=== PATIENT | female | born 1995 | race Caucasian/White ===

== ENCOUNTER 2018-03-09 15:48 | Emergency (ER) | payer OTHER ==
[2018-03-09 16:38] LABS: Absolute Lymphocytes (CBC) 2.2 K/uL (0.7-4.9); Absolute Monocytes 0.6 K/uL (0.1-1.3); Absolute Neutrophil 5.4 K/uL (1.8-8.0); Basophils % 0.4 % (0-1.3); Eosinophils % 1.9 % (0-4.4); Hematocrit 37.3 % (36.0-45.0); Lymphocytes % 25.9 % (15.3-44.8); MCH 27.6 pg (27.0-35.0); MCV 83.8 fL (80-100); MPV 8.6 fL (7.6-11.3); Monocytes % 7.2 % (3.3-12.3); RBC Red Blood Cell Count 4.45 M/uL (3.86-4.86)
[2018-03-09 16:44] LABS: Protime INR 1.1
[2018-03-09 16:46] LABS: Bicarbonate 26 mEq/L (21-31); Glucose Level 87 mg/dL (65-120); Potassium 3.6 mEq/L (3.6-5.0); Sodium Level 140 mEq/L (135-145)
[2018-03-09 16:52] LABS: ALT/SGPT 44 IU/L (10-60); AST/SGOT 32 IU/L (10-42); Albumin 4.5 g/dL (3.2-5.5); Alkaline Phosphatase 122 IU/L (42-121); BUN Blood Urea Nitrogen 10 mg/dL (6-20); Bilirubin Direct 0.1 mg/dL (0-0.2); Bilirubin Total 0.6 mg/dL (0.3-1.2); Protein, Total 8.2 g/dL (6.0-8.3)
[2018-03-09 16:56] LABS: Alcohol Serum/Plasma < 10 mg/dl
[2018-03-09 18:25] LABS: Barbiturates NEGATIVE (NEGATIVE); Benzodiazepines NEGATIVE (NEGATIVE); Cocaine NEGATIVE (NEGATIVE); METHAMPHETAM NEGATIVE (NEGATIVE); Opiates NEGATIVE (NEGATIVE); Phencyclidine NEGATIVE (NEGATIVE); THC Cannibis NEGATIVE (NEGATIVE)
[2018-03-09 18:31] LABS: Urine Blood 3+ (NEG); Urine Glucose NEGATIVE (NEG); Urine Protein 1+ (NEG); Urine Specific Gravity >1.030 (1.005-1.030)
--- NOTE | 2018-03-09 21:56 | EDPHYS ---
Physician Documentation [facility] Name: Kianna Preston Age: 22 yrs Sex: Female : 1995 Arrival Date: 03/09/2018 Time: 15:49 Bed 16 Private MD: ED Physician Errol Arenas HPI: 03/09 16:13 This 22 yrs old Female presents to ER via EMS with complaints of Suicidal cp Ideation. 16:13 The patient presents to the emergency department with depression, suicide ideation, and cp the patient has a plan, to overdose with medications. Onset: The symptoms/episode began/occurred 1 week(s) ago. Past psychiatric history: Psychiatric medications include: Prozac, Abilify, Concerta, the patient has a previous inpatient psychiatric history, last year, at [facility] . Associated signs and symptoms: The patient has no apparent associated signs or symptoms. Severity of symptoms: in the emergency department the symptoms are unchanged. 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 - Social history:: Smoking status: Patient uses tobacco products, denies chronic smoking, but will smoke occasionally. - Ebola Screening: : No symptoms or risks identified at this time. ROS: 16:15 Eyes: Negative for injury, pain, redness, and discharge. cp 16:15 Constitutional: Negative for body aches, chills, fever, poor PO intake. 16:15 Psych: Positive for depression, suicidal ideation. 16:15 All other systems are negative. Exam: 16:15 Head/Face: Normocephalic, atraumatic. cp 16:15 Eyes: Pupils equal round and reactive to light, extra-ocular motions intact. Lids and lashes normal. Conjunctiva and sclera are non-icteric and not injected. Cornea within normal limits. Periorbital areas with no swelling, redness, or edema. ENT: Nares patent. No nasal discharge, no septal abnormalities noted. Tympanic membranes are normal and external auditory canals are clear. Oropharynx with no redness, swelling, or masses, exudates, or evidence of obstruction, uvula midline. Mucous membranes moist. Neck: Trachea midline, no thyromegaly or masses palpated, and no cervical lymphadenopathy. Supple, full range of motion without nuchal rigidity, or vertebral point tenderness. No Meningismus. Chest/axilla: Normal chest wall appearance and motion. Nontender with no deformity. No lesions are appreciated. Cardiovascular: Regular rate and rhythm with a normal S1 and S2. No gallops, murmurs, or rubs. Normal PMI, no JVD. No pulse deficits. Respiratory: Lungs have equal breath sounds bilaterally, clear to auscultation and percussion. No rales, rhonchi or wheezes noted. No increased work of breathing, no retractions or nasal flaring. Abdomen/GI: Soft, non-tender, with normal bowel sounds. No distension or tympany. No guarding or rebound. No evidence of tenderness throughout. Skin: Warm, dry with normal turgor. Normal color with no rashes, no lesions, and no evidence of cellulitis. MS/ Extremity: Pulses equal, no cyanosis. Neurovascular intact. Full, normal range of motion. Neuro: Awake and alert, GCS 15, oriented to person, place, time, and situation. Cranial nerves II-XII grossly intact. Motor strength 5/5 in all extremities. Sensory grossly intact. Cerebellar exam normal. Normal gait. 16:15 Constitutional: The patient appears in no acute distress, alert, awake, non-diaphoretic, non-toxic, well developed, well nourished. 16:15 Psych: Behavior/mood is suicidal, depressed, Affect is flat, Judgement / Insight is normal. Delusions/hallucinations are not present. 16:47 ECG was reviewed by the Attending Physician. cp Vital Signs: 15:57 BP 129 / 87; Pulse 86; Resp 20; Temp 98.6; Pulse Ox 98% on R/A; Weight 105.23 kg; em Height 5 ft. 8 in. (172.72 cm); Pain 0/10; 18:56 BP 118 / 67; Pulse 82; Resp 16; Temp 97.0(O); Pulse Ox 98% on R/A; mh5 22:00 BP 111 / 64; Pulse 86; Resp 16; Pulse Ox 98% on R/A; Pain 0/10; cc 15:57 Body Mass Index 35.28 (105.23 kg, 172.72 cm) em MDM: 16:00 Patient medically screened. cp 16:17 Differential diagnosis: drug withdrawal. acute psychotic break, depression, psychosis cp secondary to non-compliance. 21:52 ED course: VSS. Patient evaluated by [facility] and felt to be stable for outpatient cp treatment. Spoke with patient and she denies currently being suicidal or homicidal. 21:54 Data reviewed: vital signs, nurses notes, lab test result(s), EKG, and as a result, [facility] will discharge patient. 03/09 16:08 Order name: Acetaminophen; Complete Time: 18:35 cp 03/09 16:08 Order name: Basic Metabolic Panel; Complete Time: 18:35 cp 03/09 16:08 Order name: CBC with Diff; Complete Time: 18:35 03/09 16:08 Order name: ETOH Level; Complete Time: 18:35 cp 03/09 16:08 Order name: Hepatic Function; Complete Time: 18:35 cp 03/09 16:08 Order name: PT-INR; Complete Time: 18:35 03/09 16:08 Order name: Urine Test (obtain specimen); Complete Time: 18:40 cp 03/09 16:08 Order name: Ptt, Activated; Complete Time: 18:35 cp 03/09 16:08 Order name: Salicylate; Complete Time: 18:35 cp 03/09 16:08 Order name: Urine Drug Screen; Complete Time: 18:35 03/09 16:50 Order name: Diet Regular; Complete Time: 16:50 mh5 03/09 17:05 Order name: Test, Serum; Complete Time: 18:35 03/09 18:14 Order name: Urine Dipstick--Ancillary (enter results); Complete Time: 18:35 em1 03/09 18:36 Interpretation: Normal except: USPGR >1.030; UBLD 3+; UPROT 1+. cp 03/09 16:08 Order name: EKG - Nurse/Tech; Complete Time: 16:59 cp 03/09 16:08 Order name: IV Saline Lock; Complete Time: 16:58 cp 03/09 16:08 Order name: Labs collected and sent; Complete Time: 16:58 cp 03/09 16:08 Order name: Urine Dipstick-Ancillary (obtain specimen); Complete Time: 18:09 cp 03/09 18:59 Order name: Glucose Level; Complete Time: 19:03 em EC:47 Rate is 70 beats/min. Rhythm is regular. NE interval is normal. QRS interval is normal. cp QT interval is normal. No ST changes noted. Interpreted by me. Reviewed by me. Administered Medications: No medications were administered Point of Care Testing: Blood Glucose: 19:04 Blood Glucose: 112 mg/dL; 5 Ranges: Critical Glucose Levels:Adult <50 mg/dl or >400 mg/dl <40 mg/dl or >180 mg/dl Disposition: 03/10 13:06 Co-signature as Attending Physician, Errol Arenas MD. Disposition: 03/09/18 21:55 Discharged to Home. Impression: Depression. - Condition is Stable. - Discharge Instructions: Depression, Adult. - Medication Reconciliation Form, Thank You Letter, Antibiotic Education, Prescription Opioid Use form. - Follow up: Private Physician; When: 1 - 2 days; Reason: Recheck today's complaints. - Problem is an ongoing problem. - Symptoms have improved. Signatures: Dispatcher [employer] EDFemi Cordoba, COOK CHILI COOK CHILI Vimal Kramer PA PA cp Starr, Gregory, MD MD gs Salazar, Brittany, RN RN bs1 Corrections: (The following items were deleted from the chart) 03/09 22:30 21:55 03/09/2018 21:55 Discharged to Home. Impression: Depression. Condition is Stable. bs1 Forms are Medication Reconciliation Form, Thank You Letter, Antibiotic Education, Prescription Opioid Use. Follow up: Private Physician; When: 1 - 2 days; Reason: Recheck today's complaints. Problem is an ongoing problem. Symptoms have improved. cp
--- NOTE | 2018-03-09 21:56 | ER ---
Nurse's Notes [facility] Name: Kianna Preston Age: 22 yrs Sex: Female : 1995 Arrival Date: 03/09/2018 Time: 15:49 Bed 16 Private MD: Diagnosis: Depression Presentation: 03/09 15:51 Acuity: STEPHANY 2 ss 16:02 Presenting complaint: EMS states: called out after friend called PD after pt reported em wanting to hurt herself, pt wants to hurt herself by taking a bottle of pills, superficial cuts noted to the right thigh, has been "talked out of taking pills 3 times this week." Pt request family not be present. States, "doesn't want to be lectured.". Transition of care: patient was not received from another setting of care. Onset of symptoms was March 09, 2018. Risk Assessment: Do you want to hurt yourself or someone else? Patient reports desire/thoughts of hurting themselves or someone else. Provider notified. Initial Sepsis Screen: Does the patient meet any 2 criteria? No. Patient's initial sepsis screen is negative. Does the patient have a suspected source of infection? No. Patient's initial sepsis screen is negative. 16:02 Method Of Arrival: EMS: [facility] em 16:02 Care prior to arrival: None. em Triage Assessment: 16:02 General: Appears in no apparent distress. comfortable, Behavior is calm, cooperative, em quiet. 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 - Social history:: Smoking status: Patient uses tobacco products, denies chronic smoking, but will smoke occasionally. - Ebola Screening: : No symptoms or risks identified at this time. Screenin:01 Abuse screen: Denies threats or abuse. Nutritional screening: No deficits noted. em Tuberculosis screening: No symptoms or risk factors identified. Fall Risk None identified. Assessment: 16:05 General: Appears in no apparent distress. comfortable, Behavior is calm, cooperative, em Reports didn't want family present initially, pt states, "as long as they don't talk down to me." family present. Pain: Denies pain. Neuro: Level of Consciousness is awake, alert, obeys commands, Oriented to person, place, time, situation. Cardiovascular: Capillary refill < 3 seconds Patient's skin is warm and dry. Respiratory: Airway is patent Respiratory effort is even, unlabored, Respiratory pattern is regular, symmetrical. GI: Abdomen is round non-distended. : No signs and/or symptoms were reported regarding the genitourinary system. EENT: No signs and/or symptoms were reported regarding the EENT system. Derm: Skin is intact, Skin is pink, warm \\T\\ dry. superficial cuts noted on right thigh. Musculoskeletal: Range of motion: intact in all extremities. 16:15 General: The previous assessment is accurate, call light remains within reach.. ss 17:31 Reassessment: Patient appears in no apparent distress at this time. Patient and/or em family updated on plan of care and expected duration. Pain level reassessed. eating dinner tray, pt mother at bedside, pt discussing with mother calmly. 18:16 Reassessment: Patient appears in no apparent distress at this time. Patient and/or em family updated on plan of care and expected duration. Pain level reassessed. Patient is alert, oriented x 3, equal unlabored respirations, skin warm/dry/pink. pt states she feels better. 19:10 Reassessment: Report received from BARB Kahn. bs1 19:10 General: Appears in no apparent distress. comfortable, Behavior is calm, cooperative. bs1 Pain: Denies pain. Neuro: Level of Consciousness is awake, alert, obeys commands, Oriented to person, place, time, situation. Cardiovascular: Denies chest pain, shortness of breath, Heart tones S1 S2 present Capillary refill < 3 seconds Patient's skin is warm and dry. Respiratory: Airway is patent Trachea midline Respiratory effort is even, unlabored, Respiratory pattern is regular, symmetrical, Breath sounds are clear bilaterally. GI: No signs and/or symptoms were reported involving the gastrointestinal system. Abdomen is round non-distended. : No signs and/or symptoms were reported regarding the genitourinary system. EENT: No signs and/or symptoms were reported regarding the EENT system. Derm: Skin is intact, Skin is pink, warm \\T\\ dry. superficial cuts noted to right thigh. Musculoskeletal: Circulation, motion, and sensation intact. Capillary refill < 3 seconds, Range of motion: intact in all extremities. 20:30 Reassessment: No changes from previously documented assessment. Patient and/or family bs1 updated on plan of care and expected duration. Pain level reassessed. Patient is alert, oriented x 3, equal unlabored respirations, skin warm/dry/pink. Patient denies pain at this time. 21:54 Reassessment: PT CLEARED BY [facility] SCREENER. bp Psych: 16:07 Subjective: Patient's mood is sad. Subjective: Having thoughts of suicide. Plan for em suicide is taking pill bottle. Objective: Patient is cooperative, Speech is normal, Affect is appropriate, Patient has mutilated themselves by knife to the right thigh. Interventions: Removed personal items and placed in bag. Patient placed in hospital gown. Searched person for dangerous items. Suicide Risk Assessment: Sad Person Scale: Sex of patient: Female: Score 0 points. Age of patient: Score 1 point if patient 15-34. Depression: Score 1 point if signs of depression are present. Previous Attempt: Score 1 point if patient has previously attempted suicide. Substance Abuse: Score 0 point if patient does not abuse alcohol or drugs. Rational Thinking: Score 0 point if patient has rational thinking. Social Support: Score 0 if social support is present/available. Organized Plan: Score 1 point if patient had a plan in place. TOTAL POINTS: If total points are 3-4, proposed clinical action is close follow-up/consider hospitalization. Safety Checks: Personal items have been removed. Door is open. Visitors are present. Pt denies substance abuse. Commitment: Patient will be a voluntary commitment. Vital Signs: 15:57 BP 129 / 87; Pulse 86; Resp 20; Temp 98.6; Pulse Ox 98% on R/A; Weight 105.23 kg; em Height 5 ft. 8 in. (172.72 cm); Pain 0/10; 18:56 BP 118 / 67; Pulse 82; Resp 16; Temp 97.0(O); Pulse Ox 98% on R/A; mh5 22:00 BP 111 / 64; Pulse 86; Resp 16; Pulse Ox 98% on R/A; Pain 0/10; cc 15:57 Body Mass Index 35.28 (105.23 kg, 172.72 cm) em ED Course: 15:49 Patient arrived in ED. em1 15:52 Triage completed. ss 15:54 Vimal Kramer PA is PHCP. cp 15:54 Errol Arenas MD is Attending Physician. cp 15:57 Femi Horton LVN is Primary Nurse. em 16:06 Arm band placed on. em 16:07 Patient has correct armband on for positive identification. Placed in gown. Bed in low em position. Call light in reach. 16:16 No provider procedures requiring assistance completed. em 16:29 Initial lab(s) drawn, by me, sent to lab. Inserted saline lock: 22 gauge in right mh5 antecubital area, using aseptic technique. Blood collected. 16:30 Safety checks: Items removed: yes. Door open/sign placed on door: yes. Family/friend mh5 present: yes. Patient has correct armband on for positive identification. Side rails up X 1. Adult w/ patient. Warm blanket given. Sitter at bedside. 16:45 Safety checks: Items removed: yes. Door open/sign placed on door: yes. Family/friend mh5 present: yes. Family/friends encouraged to stay with patient. 17:00 Safety checks: Items removed: yes. Door open/sign placed on door: yes. Family/friend mh5 present: yes. Family/friends encouraged to stay with patient. 17:11 EKG done, by ED staff, reviewed by Vimal LIMA. 5 17:15 Safety checks: Items removed: yes. Door open/sign placed on door: yes. Family/friend mh5 present: yes. Family/friends encouraged to stay with patient. 17:30 Safety checks: Items removed: yes. Door open/sign placed on door: yes. Family/friend mh5 present: yes. Family/friends encouraged to stay with patient. Diet: Patient given a regular meal tray. 17:45 Safety checks: Items removed: yes. Door open/sign placed on door: yes. Family/friend mh5 present: yes. Family/friends encouraged to stay with patient. 18:00 Safety checks: Items removed: yes. Door open/sign placed on door: yes. Family/friend mh5 present: yes. Family/friends encouraged to stay with patient. 18:15 Safety checks: Items removed: yes. Door open/sign placed on door: yes. Family/friend mh5 present: yes. Family/friends encouraged to stay with patient. 18:30 Safety checks: Items removed: yes. Door open/sign placed on door: yes. Family/friend mh5 present: yes. Family/friends encouraged to stay with patient. 18:45 Safety checks: Items removed: yes. Door open/sign placed on door: yes. Family/friend mh5 present: yes. Family/friends encouraged to stay with patient. 19:00 Safety checks: Items removed: yes. Door open/sign placed on door: yes. Family/friend mh5 present: yes. Family/friends encouraged to stay with patient. 19:00 called [facility] crisis line the real estate representative has been paged and will be here em1 at 2130. 19:20 Safety checks: Items removed: yes. Door open/sign placed on door: yes. Family/friend cc present: yes. 19:30 Safety checks: Items removed: yes. Door open/sign placed on door: yes. Family/friend cc present: yes. 19:45 Safety checks: Items removed: yes. Door open/sign placed on door: yes. Family/friend cc present: yes. 20:00 Safety checks: Items removed: yes. Door open/sign placed on door: yes. Family/friend cc present: no. 20:15 Safety checks: Items removed: yes. Door open/sign placed on door: yes. Family/friend cc present: yes. 20:30 Safety checks: Items removed: yes. Door open/sign placed on door: yes. Family/friend cc present: yes. 20:45 Safety checks: Items removed: yes. Door open/sign placed on door: yes. Family/friend cc present: yes. 21:00 Safety checks: Items removed: yes. Door open/sign placed on door: yes. Family/friend cc present: yes. 21:15 Safety checks: Items removed: yes. Door open/sign placed on door: yes. Family/friend cc present: yes. 21:27 [facility] real estate representative here to evaluate patient. 21:30 [facility] screener at bedside. cc 21:45 [facility] Screener at bedside. cc 22:00 IV discontinued, intact, bleeding controlled, Pressure dressing applied. cc 22:02 belongings returned to the patient. cc Administered Medications: No medications were administered Point of Care Testing: Blood Glucose: 19:04 Blood Glucose: 112 mg/dL; 5 Ranges: Outcome: 21:55 Discharge ordered by MD. cp 22:11 Discharged to home ambulatory, with family. bs1 22:11 Condition: stable 22:11 Discharge instructions given to patient, Instructed on discharge instructions, follow up and referral plans. Demonstrated understanding of instructions, follow-up care, Instructed to follow up with [facility]. Patient states understanding of dc instructions 22:30 Patient left the ED. bs1 Signatures: Femi Horton LVN LVN em Michael Altamirano 1 Meena Cox, RN RN Omaira Winters cc Vimal Kramer PA PA cp Martinez, Maria [facility] Marko Bagley RN RN bp Salazar, Brittany, RN RN bs1 Bettie Liao Corrections: (The following items were deleted from the chart) 18:10 16:05 Derm: Skin is intact, Skin is pink, warm \\T\\ dry. em em 19:50 19:20 Safety checks: Items removed: yes. Door open/sign placed on door: yes. cc Family/friend present: no. cc
[2018-03-09 22:57] VITALS: O2SAT 98
[2018-03-09 22:58] VITALS: TEMP 97
[2018-03-09 23:00] VITALS: BP 111/64
--- NOTE | 2018-03-10 12:16 | EKG ---
Test Date: 2018-03-09 Test Time: 16:42:36 Wet Process Technician: POLO MEASUREMENT RESULTS: Intervals: Rate: 70 CA: 140 QRSD: 82 QT: 408 QTc: 440 [place]: P: 30 CA: 140 QRS: 35 T: 35 INTERPRETIVE STATEMENTS: Normal sinus rhythm Normal ECG Compared to ECG 04/17/2017 15:18:40 No significant changes Electronically Signed On 03-10-18 12:15:35 CDT by Pablo Queen
== END 2018-03-09 22:30 | disposition home or self-care (01) ==
LOC: ER 15:48
DX: F32.9 Major depressive disorder, single episode, unspecified (principal); F31.9 Bipolar disorder, unspecified; F41.9 Anxiety disorder, unspecified; Z72.0 Tobacco use
CPT/HCPCS: 36415; 80048; 80076; 80307; 80320; 80329; 81003; 82962; 84703; 85025; 85610; 85730; 93005; 99285

== ENCOUNTER 2018-06-15 03:27 | Emergency (ER) | payer OTHER ==
[2018-06-15 05:46] LABS: Barbiturates NEGATIVE (NEGATIVE); Benzodiazepines NEGATIVE (NEGATIVE); Cocaine NEGATIVE (NEGATIVE); METHAMPHETAM NEGATIVE (NEGATIVE); Methadone NEGATIVE (NEGATIVE); Opiates NEGATIVE (NEGATIVE); Phencyclidine NEGATIVE (NEGATIVE); THC Cannibis NEGATIVE (NEGATIVE)
[2018-06-15 05:52] LABS: Absolute Lymphocytes (CBC) 3.6 K/uL (0.7-4.9); Absolute Monocytes 0.5 K/uL (0.1-1.3); Basophils % 0.5 % (0-1.3); Hematocrit 39.8 % (36.0-45.0); Lymphocytes % 37.7 % (15.3-44.8); MCH 29.1 pg (27.0-35.0); MCV 86.5 fL (80-100); Monocytes % 5.4 % (3.3-12.3)
[2018-06-15 05:53] LABS: Urine Blood 2+ (NEG); Urine Glucose NEGATIVE (NEG); Urine Protein 1+ (NEG); Urine Specific Gravity >1.030 (1.005-1.030); Urine pH 5.5 (5.0-7.0)
[2018-06-15 06:00] LABS: BUN Blood Urea Nitrogen 12 mg/dL (7-18); Bicarbonate 26 mmol/L (21-32); Glucose Level 160 mg/dL (74-106); Potassium 3.5 mmol/L (3.5-5.1); Sodium Level 141 mmol/L (136-145)
[2018-06-15 06:07] LABS: Urine Bacteria 20-50 /HPF (<20); Urine Culture Reflex Order REFLEXED; Urine RBC <5 /HPF (NONE SEEN)
--- NOTE | 2018-06-15 06:37 | EDPHYS ---
Physician Documentation [facility] Name: Kianna Preston Age: 22 yrs Sex: Female : 1995 Arrival Date: 06/15/2018 Time: 03:29 Bed 7 Private MD: Nasim Acosta T ED Physician Antonio Knutson HPI: 06/15 05:36 This 22 yrs old Female presents to ER via Wheelchair with complaints of rn Anxiety. 05:36 Reports "bad anxiety", friends brought her in today because of generalized weakness, rn palpitations, chills, "coldness in chest and entire body", has been trying to get medication for anxiety but hasn't followed up. Denies drug use. No current pain. . Onset: The symptoms/episode began/occurred at an unknown time. Severity of symptoms: At their worst the symptoms were moderate in the emergency department the symptoms have improved. The patient has experienced similar episodes in the past. The patient has not recently seen a physician. 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 - Social history:: Smoking status: Patient uses tobacco products, smokes one pack cigarettes per day. - Ebola Screening: : Patient negative for fever greater than or equal to 101.5 degrees Fahrenheit, and additional compatible Ebola Virus Disease symptoms Patient denies exposure to infectious person Patient denies travel to an Ebola-affected area in the 21 days before illness onset No symptoms or risks identified at this time. - Family history:: not pertinent. - Hospitalizations: : No recent hospitalization is reported. ROS: 05:36 Constitutional: Negative for fever and weight loss, Eyes: Negative for injury, pain, rn redness, and discharge, Neck: Negative for injury, pain, and swelling, Cardiovascular: Negative for edema, Respiratory: Negative for cough, wheezing, and pleuritic chest pain, Abdomen/GI: Negative for abdominal pain, diarrhea, and constipation, MS/Extremity: Negative for injury and deformity, Skin: Negative for injury, rash, and discoloration, Neuro: Negative for seizure. Exam: 05:36 Constitutional: This is a well developed, well nourished patient who is awake, alert, rn flat affect, does not appear uncomfortable at all. Head/Face: Normocephalic, atraumatic. Eyes: Pupils equal round and reactive to light, extra-ocular motions intact. Lids and lashes normal. Conjunctiva and sclera are non-icteric and not injected. Cornea within normal limits. Periorbital areas with no swelling, redness, or edema. Neck: Trachea midline, no thyromegaly or masses palpated, and no cervical lymphadenopathy. Supple, full range of motion without nuchal rigidity, or vertebral point tenderness. No Meningismus. Cardiovascular: Regular rate and rhythm with a normal S1 and S2. No gallops, murmurs, or rubs. Normal PMI, no JVD. No pulse deficits. Respiratory: Lungs have equal breath sounds bilaterally, clear to auscultation and percussion. No rales, rhonchi or wheezes noted. No increased work of breathing, no retractions or nasal flaring. Abdomen/GI: Soft, non-tender, with normal bowel sounds. No distension or tympany. No guarding or rebound. No evidence of tenderness throughout. Skin: Warm, dry with normal turgor. Normal color with no rashes, no lesions, and no evidence of cellulitis. MS/ Extremity: Pulses equal, no cyanosis. Neurovascular intact. Full, normal range of motion. Equal circumference. Neuro: Awake and alert, GCS 15, oriented to person, place, time, and situation. Cranial nerves II-XII grossly intact. Motor strength 5/5 in all extremities. Sensory grossly intact. Cerebellar exam normal. Vital Signs: 04:00 BP 116 / 77; Pulse 78; Resp 14; Temp 97.7; Pulse Ox 99% ; Weight 103.42 kg; Height 5 bp ft. 8 in. (172.72 cm); 05:00 BP 110 / 72; Pulse 76; Resp 18; Pulse Ox 98% on R/A; jb4 06:00 BP 102 / 56; Pulse 74; Resp 18; Pulse Ox 97% on R/A; jb4 07:10 BP 104 / 67; Pulse 86; Resp 18; Pulse Ox 97% on R/A; jb4 04:00 Body Mass Index 34.67 (103.42 kg, 172.72 cm) bp MDM: 04:12 Patient medically screened. rn 06:35 Differential Diagnosis anxiety, stress reaction, viral syndrome, hyperventilation. Data rn reviewed: vital signs, nurses notes, lab test result(s), EKG, and as a result, I will discharge patient. Counseling: I had a detailed discussion with the patient and/or guardian regarding: the historical points, exam findings, and any diagnostic results supporting the discharge/admit diagnosis, lab results, the need for outpatient follow up, to return to the emergency department if symptoms worsen or persist or if there are any questions or concerns that arise at home. Response to treatment: the patient is now symptom free, and as a result, I will discharge patient. Special discussion: I discussed with the patient/guardian in detail that at this point there is no indication for admission to the hospital. It is understood, however, that if the symptoms persist or worsen the patient needs to return immediately for re-evaluation. Based on the history and exam findings, there is no indication for further emergent testing or inpatient evaluation. I discussed with the patient/guardian the need to see the primary care provider for further evaluation of the symptoms. 06/15 04:28 Order name: CBC with Diff; Complete Time: 06: 06/15 04:28 Order name: Basic Metabolic Panel; Complete Time: : 06/15 04:28 Order name: Urine Drug Screen; Complete Time: : 06/15 04:28 Order name: Urine Microscopic Only; Complete Time: 06: 06/15 05:32 Order name: Urine Dipstick--Ancillary (enter results); Complete Time: 06: [facility] 06/15 05:32 Order name: Urine --Ancillary (enter results); Complete Time: 06:35 [facility] 06/15 04:28 Order name: IV Start; Complete Time: 05: 06/15 04:28 Order name: Urine Test (obtain specimen); Complete Time: 05: 06/15 04:28 Order name: Urine Dipstick-Ancillary (obtain specimen); Complete Time: 05:25 06/15 04:28 Order name: EKG; Complete Time: 04:29 06/15 04:28 Order name: EKG - Nurse/Tech; Complete Time: 04:55 rn 09/23 06:09 Order name: Urine Culture EDMS Administered Medications: No medications were administered Disposition: 06/15/18 06:36 Discharged to Home. Impression: Anxiety disorder, unspecified, Palpitations. - Condition is Stable. - Discharge Instructions: Panic Attacks, Palpitations, Stress and Stress Management, Generalized Anxiety Disorder. - Medication Reconciliation Form, Thank You Letter, Antibiotic Education, Prescription Opioid Use form. - Follow up: Private Physician; When: As needed; Reason: Recheck today's complaints, Re-evaluation by your physician. - Problem is an ongoing problem. - Symptoms have improved. Signatures: Dispatcher [employer] EDMS Antonio Knutson MD MD rn Bryson, James, RN RN jb4 Marko Bagley RN RN bp Corrections: (The following items were deleted from the chart) 07:13 06:36 06/15/2018 06:36 Discharged to Home. Impression: Anxiety disorder, unspecified; jb4 Palpitations. Condition is Stable. Forms are Medication Reconciliation Form, Thank You Letter, Antibiotic Education, Prescription Opioid Use. Follow up: Private Physician; When: As needed; Reason: Recheck today's complaints, Re-evaluation by your physician. Problem is an ongoing problem. Symptoms have improved. rn
--- NOTE | 2018-06-15 06:37 | ER ---
Nurse's Notes [facility] Name: Kianna Preston Age: 22 yrs Sex: Female : 1995 Arrival Date: 06/15/2018 Time: 03:29 Bed 7 Private MD: Nasim Acosta T Diagnosis: Anxiety disorder, unspecified;Palpitations Presentation: 06/15 04:00 Presenting complaint: Patient states: ANXIETY. Transition of care: patient was not bp received from another setting of care. Onset of symptoms is unknown. Risk Assessment: Do you want to hurt yourself or someone else? Patient reports no desire to harm self or others. Initial Sepsis Screen: Does the patient meet any 2 criteria? No. Patient's initial sepsis screen is negative. Does the patient have a suspected source of infection? No. Patient's initial sepsis screen is negative. Care prior to arrival: None. 04:00 Method Of Arrival: Wheelchair bp 04:00 Acuity: STEPHANY 5 bp Triage Assessment: 04:00 General: Appears in no apparent distress. comfortable, obese, Behavior is cooperative, bp appropriate for age, flat. Pain: Denies pain. 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 - Social history:: Smoking status: Patient uses tobacco products, smokes one pack cigarettes per day. - Ebola Screening: : Patient negative for fever greater than or equal to 101.5 degrees Fahrenheit, and additional compatible Ebola Virus Disease symptoms Patient denies exposure to infectious person Patient denies travel to an Ebola-affected area in the 21 days before illness onset No symptoms or risks identified at this time. - Family history:: not pertinent. - Hospitalizations: : No recent hospitalization is reported. Screenin:45 Abuse screen: Denies threats or abuse. Nutritional screening: No deficits noted. jb4 Tuberculosis screening: No symptoms or risk factors identified. Fall Risk None identified. Assessment: 04:45 General: Appears in no apparent distress. uncomfortable, Behavior is calm, cooperative, jb4 appropriate for age. Pain: Complains of pain in back, chest and abdomen Pain does not radiate. Pain currently is 6 out of 10 on a pain scale. at worst was 10 out of 10 on a pain scale. Quality of pain is described as crampy, Pain began 2-3 days ago. Is intermittent. Neuro: Level of Consciousness is awake, alert, obeys commands, Oriented to person, place, time, situation. Cardiovascular: Reports chest pain, Heart tones S1 S2 present Patient's skin is warm and dry. Respiratory: Airway is patent Respiratory effort is even, unlabored, Respiratory pattern is regular, symmetrical. GI: Abdomen is non-distended, obese, Bowel sounds present X 4 quads. Abd is soft X 4 quads Abdomen is tender to palpation X 4 quads. : No signs and/or symptoms were reported regarding the genitourinary system. EENT: No signs and/or symptoms were reported regarding the EENT system. Derm: Skin is intact, Skin is pink, warm \T\ dry. Musculoskeletal: Circulation, motion, and sensation intact. 05:39 Reassessment: Patient appears in no apparent distress at this time. Patient and/or jb4 family updated on plan of care and expected duration. Pain level reassessed. Patient is alert, oriented x 3, equal unlabored respirations, skin warm/dry/pink. 06:45 Reassessment: Patient appears in no apparent distress at this time. Patient and/or jb4 family updated on plan of care and expected duration. Pain level reassessed. Patient is alert, oriented x 3, equal unlabored respirations, skin warm/dry/pink. 07:10 Reassessment: D/c,F/u to pt, denies questions and concerns. jb4 Vital Signs: 04:00 BP 116 / 77; Pulse 78; Resp 14; Temp 97.7; Pulse Ox 99% ; Weight 103.42 kg; Height 5 bp ft. 8 in. (172.72 cm); 05:00 BP 110 / 72; Pulse 76; Resp 18; Pulse Ox 98% on R/A; jb4 06:00 BP 102 / 56; Pulse 74; Resp 18; Pulse Ox 97% on R/A; jb4 07:10 BP 104 / 67; Pulse 86; Resp 18; Pulse Ox 97% on R/A; jb4 04:00 Body Mass Index 34.67 (103.42 kg, 172.72 cm) bp ED Course: 03:29 Patient arrived in ED. es 03:29 Nasim Acosta MD is Private Physician. es 04:00 Triage completed. bp 04:00 Arm band placed on. bp 04:11 Antonio Knutson MD is Attending Physician. rn 04:41 Rigo Bal, RN is Primary Nurse. jb4 04:45 Patient has correct armband on for positive identification. Bed in low position. Call jb4 light in reach. Side rails up X 1. animal care taker on. Pulse ox on. NIBP on. 05:25 Inserted saline lock: 20 gauge in right antecubital area, using aseptic technique. oe Blood collected. 07:10 No provider procedures requiring assistance completed. IV discontinued, intact, jb4 bleeding controlled. Administered Medications: No medications were administered Outcome: 06:36 Discharge ordered by . rn 07:10 Discharged to home ambulatory. jb4 07:10 Condition: stable 07:10 Discharge instructions given to patient, Instructed on discharge instructions, follow up and referral plans. Demonstrated understanding of instructions, follow-up care. 07:13 Patient left the ED. jb4 Signatures: Claudia Cabrera Roman, MD MD rn Rigo Bal, RN RN jb4 Tin Bernal Brian, RN RN bp Corrections: (The following items were deleted from the chart) 05:20 04:45 Pain: Complains of pain in back, chest and abdomen jb4 jb4 07:12 06:45 Reassessment: D/c,F/u to pt, denies questions and concerns. jb4 jb4
[2018-06-15 07:17] VITALS: TEMP 97.7
[2018-06-15 07:19] VITALS: O2SAT 97
[2018-06-15 07:21] VITALS: BP 104/67
--- NOTE | 2018-06-16 08:11 | EKG ---
Test Date: 2018-06-15 Test Time: 04:50:59 Mat Puncher: CHELSIE MEASUREMENT RESULTS: Intervals: Rate: 69 MD: 148 QRSD: 84 QT: 414 QTc: 443 Geddes: P: 46 MD: 148 QRS: 56 T: 55 INTERPRETIVE STATEMENTS: Normal sinus rhythm with sinus arrhythmia Normal ECG Compared to ECG 03/09/2018 16:42:36 No significant changes Electronically Signed On 06-16-18 08:10:38 CDT by Pablo Queen
== END 2018-06-15 07:13 | disposition home or self-care (01) ==
LOC: ER 03:27
DX: R00.2 Palpitations (principal); F17.210 Nicotine dependence, cigarettes, uncomplicated
CPT/HCPCS: 36415; 80048; 80307; 81003; 81015; 81025; 85025; 87086; 87088; 93005; 99284

== ENCOUNTER 2018-09-04 22:38 | Emergency (ER) | payer OTHER ==
[2018-09-04 23:21] LABS: Barbiturates NEGATIVE (NEGATIVE); Benzodiazepines NEGATIVE (NEGATIVE); Cocaine NEGATIVE (NEGATIVE); METHAMPHETAM NEGATIVE (NEGATIVE); Methadone NEGATIVE (NEGATIVE); Opiates NEGATIVE (NEGATIVE); Phencyclidine NEGATIVE (NEGATIVE); THC Cannibis NEGATIVE (NEGATIVE)
[2018-09-04 23:33] LABS: Absolute Lymphocytes (CBC) 3.7 K/uL (0.7-4.9); Absolute Monocytes 0.6 K/uL (0.1-1.3); Absolute Neutrophil 4.9 K/uL (1.8-8.0); Basophils % 0.4 % (0-1.3); Eosinophils % 2.5 % (0-4.4); Hematocrit 40.9 % (36.0-45.0); Lymphocytes % 39.3 % (15.3-44.8); MCH 29.2 pg (27.0-35.0); MCV 87.1 fL (80-100); MPV 8.7 fL (7.6-11.3); Monocytes % 5.9 % (3.3-12.3); RBC Red Blood Cell Count 4.69 M/uL (3.86-4.86)
[2018-09-04 23:35] LABS: Protime INR 0.96
[2018-09-04] MEDS ORDERED: ACT CHARCOAL/SORB 50 GM/240ML ONE (23:36)
[2018-09-04 23:52] LABS: ALT/SGPT 39 U/L (12-78); AST/SGOT 22 U/L (15-37); Albumin 3.8 g/dL (3.4-5.0); Alkaline Phosphatase 132 U/L (45-117); BUN Blood Urea Nitrogen 8 mg/dL (7-18); Bicarbonate 24 mmol/L (21-32); Bilirubin Direct < 0.1 mg/dL (0-0.2); Bilirubin Total 0.2 mg/dL (0.2-1.0); Glucose Level 112 mg/dL (74-106); Potassium 3.6 mmol/L (3.5-5.1); Protein, Total 8.2 g/dL (6.4-8.2); Sodium Level 144 mmol/L (136-145)
[2018-09-05] MEDS ORDERED: ONDANSETRON 4 MG/2 ML VIAL ONE (00:12)
[2018-09-05 01:09] LABS: Urine Blood TRACE (NEG); Urine Glucose NEGATIVE (NEG); Urine Protein NEGATIVE (NEG); Urine pH 5.5 (5.0-7.0)
[2018-09-05] MEDS ORDERED: NA CHLORIDE 0.9% 1,000 ML ONE (02:34)
--- NOTE | 2018-09-05 08:24 | EDPHYS ---
Physician Documentation [facility] Name: Kianna Preston Age: 22 yrs Sex: Female : 1995 Arrival Date: 09/04/2018 Time: 22:41 Bed 7 Private MD: ED Physician Oleksandr Campoverde HPI: 09/05 04:48 This 22 yrs old Female presents to ER via EMS with complaints of Suicidal tw4 Ideation. 04:48 This 22 yrs old Female presents to ER via EMS with complaints of Suicidal tw4 Ideation pt took 10 abilify tablets. 04:48 The patient presents to the emergency department with suicide ideation, and the patient tw4 has a plan, to overdose with medications. Onset: The symptoms/episode began/occurred today. Past psychiatric history: Prior diagnosis: depression. Associated signs and symptoms: Pertinent positives; substance abuse, Pertinent negatives: abdominal pain, anxiety, chest pain, delusions, depression, fever, hallucinations, headache, homicidal ideation. Severity of symptoms: At their worst the symptoms were severe in the emergency department the symptoms are unchanged. The patient has experienced a previous episode. The patient has not recently seen a physician. 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 - Social history:: Smoking status: Patient uses tobacco products, smokes one-half pack cigarettes per day, Patient uses alcohol. - Ebola Screening: : No symptoms or risks identified at this time. ROS: 09/05 04:48 Constitutional: Negative for fever, chills, and weight loss, Eyes: Negative for injury, tw4 pain, redness, and discharge, Cardiovascular: Negative for chest pain, palpitations, and edema, Respiratory: Negative for shortness of breath, cough, wheezing, and pleuritic chest pain, Abdomen/GI: Negative for abdominal pain, nausea, vomiting, diarrhea, and constipation, Back: Negative for injury and pain, MS/Extremity: Negative for injury and deformity, Skin: Negative for injury, rash, and discoloration, Neuro: Negative for headache, weakness, numbness, tingling, and seizure. Psych: Positive for depression, suicide gesture, suicidal ideation, Negative for auditory hallucinations, visual hallucinations, homicidal ideation, insomnia. Exam: 04:30 ECG was reviewed by the Attending Physician. tw4 04:48 Head/Face: Normocephalic, atraumatic. tw4 04:48 Chest/axilla: Normal chest wall appearance and motion. Nontender with no deformity. No lesions are appreciated. Cardiovascular: Regular rate and rhythm with a normal S1 and S2. No gallops, murmurs, or rubs. Normal PMI, no JVD. No pulse deficits. Respiratory: Lungs have equal breath sounds bilaterally, clear to auscultation and percussion. No rales, rhonchi or wheezes noted. No increased work of breathing, no retractions or nasal flaring. Abdomen/GI: Soft, non-tender, with normal bowel sounds. No distension or tympany. No guarding or rebound. No evidence of tenderness throughout. Back: No spinal tenderness. No costovertebral tenderness. Full range of motion. MS/ Extremity: Pulses equal, no cyanosis. Neurovascular intact. Full, normal range of motion. Neuro: Awake and alert, GCS 15, oriented to person, place, time, and situation. Cranial nerves II-XII grossly intact. Motor strength 5/5 in all extremities. Sensory grossly intact. Cerebellar exam normal. Normal gait. 04:48 Constitutional: The patient appears agitated, smells of alcohol, ETOH. 04:48 Psych: Behavior/mood is aggressive, uncooperative, suicidal, depressed, Affect is animated, Oriented to person, place, time, Patient having thoughts of suicide. Judgement / Insight is impaired. Delusions/hallucinations are not present. Vital Signs: 09/04 22:47 BP 110 / 63; Pulse 100; Resp 20; Temp 99.5(O); Pulse Ox 100% on R/A; Weight 102.06 kg; aa1 Height 5 ft. 8 in. (172.72 cm); Pain 0/10; 23:02 BP 108 / 55; Pulse 112; Resp 20; Pulse Ox 95% on R/A; mt 23:46 BP 91 / 52; Pulse 104; Resp 16; Pulse Ox 99% on R/A; mt 09/05 00:35 BP 104 / 62; Pulse 79; Resp 16; Pulse Ox 98% on R/A; mt 01:39 BP 97 / 83; Pulse 80; Resp 17; Pulse Ox 99% on R/A; rr5 02:48 BP 110 / 60; Pulse 80; Resp 18; Pulse Ox 99% on R/A; Pain 0/10; rr5 03:20 BP 96 / 60; Pulse 72; Resp 17; Pulse Ox 99% ; rr5 04:00 BP 92 / 57; Pulse 82; Resp 16; Pulse Ox 99% on R/A; rr5 05:00 BP 94 / 57; Pulse 85; Resp 17; Pulse Ox 97% on R/A; rr5 06:00 BP 93 / 49; Pulse 91; Resp 17; Pulse Ox 96% on R/A; rr5 06:30 BP 102 / 70; Pulse 81; Resp 17; Pulse Ox 97% on R/A; rr5 09/04 22:47 Body Mass Index 34.21 (102.06 kg, 172.72 cm) aa1 MDM: 09/04 22:42 Patient medically screened. 09/05 04:48 Differential diagnosis: acute psychotic break, depression, psychosis secondary to tw4 non-compliance. Data reviewed: vital signs, nurses notes. Data interpreted: Pulse oximetry: Interpretation: normal. Counseling: I had a detailed discussion with the patient and/or guardian regarding: the historical points, exam findings, and any diagnostic results supporting the discharge/admit diagnosis. 09/04 22:42 Order name: Acetaminophen; Complete Time: 01:01 09/05 01:01 Interpretation: Within normal limits: ACETA < 2.0. 09/04 22:42 Order name: Basic Metabolic Panel; Complete Time: 01:01 09/05 01:01 Interpretation: Normal except: CL 112; GLUC 112; GFR 80. 09/04 22:42 Order name: CBC with Diff; Complete Time: 01:01 09/05 01:01 Interpretation: Within normal limits. 09/04 22:42 Order name: ETOH Level; Complete Time: 01:01 09/05 01:01 Interpretation: Normal except: ETOH 169. 09/04 22:42 Order name: Hepatic Function; Complete Time: 01:01 [facility] 09/05 01:01 Interpretation: Normal except: ALK 132; GLOB 4.4; A/G 0.9. [facility] 09/04 22:42 Order name: PT-INR; Complete Time: 01:01 [facility] 09/05 01:02 Interpretation: Within normal limits: PT 11.3. [facility] 09/04 22:42 Order name: Ptt, Activated; Complete Time: 01:02 [facility] 09/05 01:02 Interpretation: Within normal limits: PTT 33.7. [facility] 09/04 22:42 Order name: Salicylate; Complete Time: 01:01 [facility] 09/05 01:01 Interpretation: Within normal limits: RUBY < 1.7. [facility] 09/04 22:42 Order name: Urine Drug Screen; Complete Time: 01:02 [facility] 09/05 01:02 Interpretation: Within normal limits. [facility] 09/04 23:03 Order name: Urine Dipstick--Ancillary (enter results) 09/04 23:03 Order name: Urine --Ancillary (enter results) 09/05 03:38 Order name: ETOH Level [facility] 09/05 03:38 Order name: Acetaminophen [facility] 09/04 22:42 Order name: Urine Test (obtain specimen); Complete Time: 23:02 [facility] 09/04 22:42 Order name: EKG; Complete Time: 22:43 [facility] 09/04 22:42 Order name: EKG - Nurse/Tech; Complete Time: 23:24 [facility] 09/04 22:42 Order name: IV Saline Lock; Complete Time: 23:03 [facility] 09/04 22:42 Order name: Labs collected and sent; Complete Time: 23:03 [facility] 09/04 22:42 Order name: Urine Dipstick-Ancillary (obtain specimen); Complete Time: 23:03 4 EC:30 Rate is 115 beats/min. Rhythm is regular, Sinus tachycardia. QRS [place] is Normal. [place] tw4 interval is normal. QRS interval is normal. QT interval is normal. T waves are Normal. No ST changes noted. Clinical impression: Sinus tachycardia. Interpreted by me. Reviewed by me. Administered Medications: 09/04 23:30 Drug: Charcoal Suspension 50 grams Route: PO; rr5 09/05 03:37 Follow up: Response: No adverse reaction rr5 00:10 Drug: Zofran 4 mg Route: IVP; Site: right hand; rr5 03:36 Follow up: Response: No adverse reaction; Marked relief of symptoms rr5 02:31 Drug: NS 0.9% 1000 ml Route: IV; Rate: 1 bolus; Site: right hand; rr5 04:00 Follow up: Response: No adverse reaction; IV Status: Completed infusion; IV Intake: rr5 1000ml Disposition: 09/05/18 08:22 Transfer ordered to Psych Facility. Diagnosis is Suicidal ideations. - Reason for transfer: Higher level of care. - Accepting physician is Shai. - Condition is Stable. - Problem is new. - Symptoms are unchanged. Signatures: Dispatcher [employer] EDMS Ya Rice RN RN aa1 Meena Cox RN Oleksandr Castillo MD MD tw4 Jordon Matthews RN RN rr5 Corrections: (The following items were deleted from the chart) 06:59 06:59 09/05/2018 06:59 Discharged to Home. Impression: Pharyngeal diphtheria. Condition tw4 is Stable. Forms are Medication Reconciliation Form, Thank You Letter, Antibiotic Education, Prescription Opioid Use. Follow up: Misty Diane; When: Upon discharge from the Emergency Department; Reason: Continuance of care. Problem is new. Symptoms have improved. tw4 08:22 08:22 09/05/2018 08:22 Transfer ordered to Psych Facility. Diagnosis is Suicidal ss ideations. Reason for transfer: Higher level of care. Accepting physician is [facility]. Condition is Stable. Problem is new. Symptoms are unchanged. ss
--- NOTE | 2018-09-05 08:24 | ER ---
Nurse's Notes [facility] Name: Kianna Preston Age: 22 yrs Sex: Female : 1995 Arrival Date: 09/04/2018 Time: 22:41 Bed 7 Private MD: Diagnosis: Suicidal ideations Presentation: 09/04 22:47 Presenting complaint: EMS states: they were called out for pt with SI. Reports upon aa1 arrival to scene pt was outside of apartment on the ground with PD. Pt states she was upset because she lost her boyfriend who meant everything to her and wanted to kill herself. Reported to EMS that she has tried to kill herself before and if she is released she will go home and try again. Admits to drinking approx 50 ounces of liquor and beer and took 10+ 5mg Abilify. Upon arrival to ED pt crying, A\T\Ox4. Abrasions noted to L wrist which she reports are self inflicted. NAD noted. Transition of care: patient was not received from another setting of care. Onset of symptoms was September 04, 2018. Risk Assessment: Do you want to hurt yourself or someone else? Patient reports desire/thoughts of hurting themselves or someone else. Provider notified. Initial Sepsis Screen: Does the patient meet any 2 criteria? No. Patient's initial sepsis screen is negative. Does the patient have a suspected source of infection? No. Patient's initial sepsis screen is negative. Care prior to arrival: Glucose check: 109. 22:47 Method Of Arrival: EMS: [facility] aa1 22:47 Acuity: STEPHANY 2 aa1 Triage Assessment: 22:47 General: Appears in no apparent distress. comfortable, Behavior is anxious, crying. 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 - Social history:: Smoking status: Patient uses tobacco products, smokes one-half pack cigarettes per day, Patient uses alcohol. - Ebola Screening: : No symptoms or risks identified at this time. Screenin:00 Abuse screen: Denies threats or abuse. Denies injuries from another. Nutritional rr5 screening: No deficits noted. Tuberculosis screening: No symptoms or risk factors identified. Fall Risk Secondary diagnosis (15 points) drug induced. IV access (20 points). Total Narayan Fall Scale indicates Low Risk Score (25-44 pts). Fall prevention measures have been instituted. Side Rails Up X 2 1:1 attendant Assigned to Pt. Frequent Obs/Assesments occuring Family Present and informed to notify staff if they need to leave bedside As available Patient and Family Educated on Fall Prevention Program and strategies. Assessment: 22:51 Reassessment: spoke with Leatha at [place] [facility]. Medication can cause PACKAGER HEAD fc depression, hypotension and or coma. Tx can include Activated Charcoal with sorbitol, IVF, Pressors or Benzos. Also draw tox work up and repeat Tylenol levels and aspirin levels in 4 hrs. Case #[id number]. 23:00 General: Appears uncomfortable, unkempt, Behavior is agitated, anxious, crying. Pain: rr5 Denies pain. Neuro: Level of Consciousness is awake, alert, obeys commands, Oriented to person, place, time, situation. Cardiovascular: Capillary refill < 3 seconds Patient's skin is warm and dry. Respiratory: Airway is patent Respiratory effort is even, unlabored, Respiratory pattern is regular, symmetrical. GI: Abdomen is round non-distended. : No signs and/or symptoms were reported regarding the genitourinary system. EENT: No signs and/or symptoms were reported regarding the EENT system. Derm: Wound noted Wound is abrasion laceration left wrist. Musculoskeletal: No signs and/or symptoms reported regarding the musculoskeletal system. 09/05 00:10 Reassessment:. GI: Reports nausea, vomiting, previously ingested charcoal medication. rr5 ED provider informed with order and carried out. 01:37 Reassessment: Patient appears in no apparent distress at this time. Patient and/or rr5 family updated on plan of care and expected duration. Pain level reassessed. asleep on bed comfortably Patient states feeling better. Patient states symptoms have improved. 02:18 Reassessment: Patient appears in no apparent distress at this time. Patient and/or tl2 family updated on plan of care and expected duration. Pain level reassessed. [facility] staff awaiting for the alcohol level to come down prior to evaluation Patient states symptoms have improved. 02:34 Reassessment: Patient appears in no apparent distress at this time. Patient and/or rr5 family updated on plan of care and expected duration. Pain level reassessed. for repeat etoh level at 0400H. 04:00 Reassessment: Patient appears in no apparent distress at this time. no complaints made. rr5 for repeat laboratory exam extracted. Patient denies pain at this time. Patient states symptoms have improved. 05:42 Reassessment: spoke to [facility] staff [place] over the phone and endorsed the rr5 patient. 06:06 Reassessment: Patient appears in no apparent distress at this time. [facility] rr5 accepted the case. Patient denies pain at this time. Patient states symptoms have improved. 06:42 Reassessment: Patient appears in no apparent distress at this time. 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 Psych: 00:00 Objective: Patient is challenging, restless, Speech is normal, Affect is appropriate, rr5 Patient has mutilated themselves by lacerated wound at left wrist. Interventions: Removed personal items and placed in bag. Patient placed in hospital gown. Urine collected and sent for urine drug test. Suicide Risk Assessment: Sad Person Scale: Sex of patient: Female: Score 0 points. Age of patient: Score 1 point if patient 15-34. Depression: Score 1 point if signs of depression are present. Previous Attempt: Score 1 point if patient has previously attempted suicide. Substance Abuse: Score 0 point if patient does not abuse alcohol or drugs. Rational Thinking: Score 1 point if patient is lacking rational thinking. Social Support: Score 0 if social support is present/available. Organized Plan: Score 1 point if patient had a plan in place. Relationship: Score 1 point if patient is , , , or for a single male Chronic Sickness: Score 1 point if patient has illness, chronic, debilitating, or severe. TOTAL POINTS: If total points are 7-10, the proposed clinical action is to hospitalize or commit. Implement suicide precautions. Safety Checks: Personal items have been removed. Pt denies substance abuse. 00:00 Subjective: Patient's mood is sad, angry, irritable. Commitment: Patient will be an rr5 involuntary commitment. Vital Signs: 09/04 22:47 BP 110 / 63; Pulse 100; Resp 20; Temp 99.5(O); Pulse Ox 100% on R/A; Weight 102.06 kg; aa1 Height 5 ft. 8 in. (172.72 cm); Pain 0/10; 23:02 BP 108 / 55; Pulse 112; Resp 20; Pulse Ox 95% on R/A; mt 23:46 BP 91 / 52; Pulse 104; Resp 16; Pulse Ox 99% on R/A; mt 09/05 00:35 BP 104 / 62; Pulse 79; Resp 16; Pulse Ox 98% on R/A; mt 01:39 BP 97 / 83; Pulse 80; Resp 17; Pulse Ox 99% on R/A; rr5 02:48 BP 110 / 60; Pulse 80; Resp 18; Pulse Ox 99% on R/A; Pain 0/10; rr5 03:20 BP 96 / 60; Pulse 72; Resp 17; Pulse Ox 99% ; rr5 04:00 BP 92 / 57; Pulse 82; Resp 16; Pulse Ox 99% on R/A; rr5 05:00 BP 94 / 57; Pulse 85; Resp 17; Pulse Ox 97% on R/A; rr5 06:00 BP 93 / 49; Pulse 91; Resp 17; Pulse Ox 96% on R/A; rr5 06:30 BP 102 / 70; Pulse 81; Resp 17; Pulse Ox 97% on R/A; rr5 09/04 22:47 Body Mass Index 34.21 (102.06 kg, 172.72 cm) aa1 ED Course: 09/04 22:41 Patient arrived in ED. ds1 22:42 Oleksandr Mata MD is Attending Physician. tw4 22:45 Safety checks: Items removed: yes. Door open/sign placed on door: yes. Family/friend mt present: yes. Sitter present: Yes. 22:47 Arm band placed on right wrist. aa1 22:50 Initial lab(s) drawn, by me, sent to lab. mt 22:50 Patient has correct armband on for positive identification. Placed in gown. Bed in low rr5 position. Side rails up X2. Adult w/ patient. 23:00 Triage completed. aa1 23:00 Safety checks: Items removed: yes. Door open/sign placed on door: yes. Family/friend mt present: yes. Sitter present: Yes. 23:15 Safety checks: Items removed: yes. Door open/sign placed on door: yes. Family/friend mt present: yes. Sitter present: Yes. 23:24 EKG done, by ED staff, reviewed by Oleksandr Mata MD. mt 23:30 Safety checks: Items removed: yes. Door open/sign placed on door: yes. Family/friend mt present: yes. Sitter present: Yes. 23:45 Safety checks: Items removed: yes. Door open/sign placed on door: yes. Family/friend mt present: yes. Sitter present: Yes. 09/05 00:00 Safety checks: Items removed: yes. Door open/sign placed on door: yes. Family/friend mt present: yes. Sitter present: Yes. 00:10 Inserted saline lock: 20 gauge in right hand, using aseptic technique. rr5 00:15 Safety checks: Items removed: yes. Door open/sign placed on door: yes. Family/friend mt present: yes. Sitter present: Yes. 00:30 Safety checks: Items removed: yes. Door open/sign placed on door: yes. Family/friend mt present: yes. Sitter present: Yes. 00:45 Safety checks: Items removed: yes. Door open/sign placed on door: yes. Family/friend mt present: yes. Sitter present: Yes. 01:00 Safety Checks: Personal items have been removed. The door is open or patient has been rr5 placed in a hallway bed/chair. A family member and/or friend is present and encouraged to stay. Sitter present at this time. 01:37 Jordon Matthews, [place] is Primary Nurse. rr5 02:00 Safety Checks: Personal items have been removed. The door is open or patient has been rr5 placed in a hallway bed/chair. A family member and/or friend is present and encouraged to stay. Sitter present at this time. 03:00 Safety Checks: Personal items have been removed. The door is open or patient has been rr5 placed in a hallway bed/chair. A family member and/or friend is present and encouraged to stay. Sitter present at this time. 04:00 Safety Checks: Personal items have been removed. The door is open or patient has been rr5 placed in a hallway bed/chair. A family member and/or friend is present and encouraged to stay. Sitter present at this time. 04:11 No apparent distress. Appears to be sleeping. Awaiting lab results. rr5 04:59 Called [facility] and spoke to Naya. 05:00 Safety Checks: Personal items have been removed. The door is open or patient has been rr5 placed in a hallway bed/chair. A family member and/or friend is present and encouraged to stay. Sitter present at this time. 05:07 faxed Facesheet and results to [facility] [phone], [facility] [phone],[facility] [phone], [facility] [phone], [facility] [phone], [facility] [phone],[facility] [phone],[facility] [phone], [facility] [phone], [facility], [facility], [facility], [facility]. 05:12 called [facility] for mental health deputy. gm 05:37 nurse to nurse was done at 0537. gm 05:54 doc to doc was done between dr ziegler and dr mata. 06:00 Safety Checks: Personal items have been removed. The door is open or patient has been rr5 placed in a hallway bed/chair. A family member and/or friend is present and encouraged to stay. Sitter present at this time. 06:00 administrative approval was given by rodri naylor at 0600. gm 06:43 No apparent distress. Safety Checks: Personal items have been removed. The door is open rr5 or patient has been placed in a hallway bed/chair. A family member and/or friend is present and encouraged to stay. Sitter present at this time. 06:58 Misty Diane MD is Referral Physician. tw4 07:00 Safety Checks: Personal items have been removed. The door is open or patient has been rr5 placed in a hallway bed/chair. A family member and/or friend is present and encouraged to stay. Sitter present at this time. 07:30 Safety Checks: Personal items have been removed. The door is open or patient has been la1 placed in a hallway bed/chair. A family member and/or friend is present and encouraged to stay. Sitter present at this time. 08:23 No provider procedures requiring assistance completed. IV discontinued, intact, ss bleeding controlled, No redness/swelling at site. Pressure dressing applied. Administered Medications: 09/04 23:30 Drug: Charcoal Suspension 50 grams Route: PO; rr5 09/05 03:37 Follow up: Response: No adverse reaction rr5 00:10 Drug: Zofran 4 mg Route: IVP; Site: right hand; rr5 03:36 Follow up: Response: No adverse reaction; Marked relief of symptoms rr5 02:31 Drug: NS 0.9% 1000 ml Route: IV; Rate: 1 bolus; Site: right hand; rr5 04:00 Follow up: Response: No adverse reaction; IV Status: Completed infusion; IV Intake: rr5 1000ml Intake: 04:00 IV: 1000ml; Total: 1000ml. rr5 Outcome: 06:59 Discharge ordered by . tw4 08:22 ER care complete, transfer ordered by MD. 08:22 Patient left the ED. 08:23 Transferred [facility]. 08:23 Condition: good 08:23 Instructed on the need for transfer. Signatures: Ya Rice RN RN aa1 Ethel Cullen RN RN Krystal Antonio ds1 Meena Cox RN RN Kevin Marquez RN RN la1 Palma Bowers RN RN tl2 Frieda Wagoner mt, Terrence, MD MD tw4 Jordon Matthews RN RN rr5 Nadeen Mendez gm Corrections: (The following items were deleted from the chart) 09/04 23:08 22:51 Reassessment: spoke with Leatha at [place] [facility]. Medication can cause fc PACKAGER HEAD depression, hypotension and or coma. Tx can include Activated Charcoal, IVF, Pressors or Benzos. Also draw tox work up and repeat Tylenol levels and aspirin levels in 4 hrs. Case #[id number]
[2018-09-05 08:47] VITALS: TEMP 99.5
[2018-09-05 08:59] VITALS: BP 102/70; O2SAT 97
--- NOTE | 2018-09-05 09:21 | EKG ---
Test Date: 2018-09-04 Test Time: 23:07:01 Spring Encaser: ALISON MEASUREMENT RESULTS: Intervals: Rate: 115 MT: 162 QRSD: 82 QT: 336 QTc: 464 Zamora: P: 52 MT: 162 QRS: 62 T: 57 INTERPRETIVE STATEMENTS: Sinus tachycardia Otherwise normal ECG Compared to ECG 06/15/2018 04:50:59 Sinus rhythm no longer present Sinus arrhythmia no longer present Electronically Signed On 09-05-18 09:20:34 DIRECTOR DIABETES by Pablo Queen
== END 2018-09-05 08:22 ==
LOC: ER 22:38
DX: T43.592A Poisoning by other antipsychotics and neuroleptics, intentional self-harm, initial encounter (principal); Y92.9 Unspecified place or not applicable; F31.9 Bipolar disorder, unspecified; F41.9 Anxiety disorder, unspecified; F17.210 Nicotine dependence, cigarettes, uncomplicated
CPT/HCPCS: 36415; 80048; 80076; 80307; 80320; 80329; 81003; 81025; 85025; 85610; 85730; 93005; 96361; 96374; 99285; J2405; J7030

== ENCOUNTER 2019-10-01 23:13 | Emergency (ER) | payer OTHER, SELFPAY ==
--- OUTSIDE RECORDS SUMMARY | 2019-10-01 23:15 | XMS REPORT | Summary of Care ---
:1995 Author Organization [facility] - Health Address [address] [place] [address] Care Team Providers Name Role Phone Pcp, Patient Does Not Have A Primary Care Provider Encounter Details Date Type Department Care Team Description 04/17/2019 Orders Only [facility] Doctor Unassigned, No [address] [facility] [place] [address] [address] [place] [address] Allergies No Known Allergiesdocumented as of this encounter (statuses as of 04/17/2019) Medications No known medicationsdocumented as of this encounter (statuses as of 04/17/2019) Active Problems Not on filedocumented as of this encounter (statuses as of 04/17/2019) Social History Tobacco Use Types Packs/Day Years Used Date Never Assessed Sex Assigned at Date Recorded Not on file Job Start Date Occupation Industry Not on file Not on file Not on file Travel History Travel Start Travel End No recent travel history available. documented as of this encounter Last Filed Vital Signs Not on filedocumented in this encounter Plan of Treatment Date Type Specialty Care Team Description 04/17/2019 Appointment Radiology Radiology [address] [place] [address] Health Maintenance Due Date Last Done Comments MENINGOCOCCAL B VACCINES (1 of 2 - 12/04/2007 Risk Bexsero 2-dose series) VARICELLA VACCINES (1 of 2 - 13+ 2010 2-dose series) HPV VACCINES (1 - Female 3-dose 2012 series) CHLAMYDIA SCREENING 2013 DTaP,Tdap,and Td Vaccines (1 - 2016 Tdap) PAP SMEAR 2018 INFLUENZA VACCINE 05/24/2019 MENINGOCOCCAL VACCINE Aged Out No longer eligible based on patient's age to complete this topic PNEUMOCOCCAL 0-64 YEARS COMBINED Aged Out No longer eligible based on SERIES patient's age to complete this topic documented as of this encounter Procedures Procedure Name Priority Date/Time Associated Diagnosis Comments ASSIGNMENT OF BENEFITS Routine 04/17/2019 1:05 PM CDT documented in this encounter Results Not on filedocumented in this encounter Insurance Payer Benefit Plan / Group Subscriber ID Effective Dates Phone Address Type AETNA AETNA O [id number] 2017-Present HMO documented as of this encounter
--- OUTSIDE RECORDS SUMMARY | 2019-10-01 23:15 | XMS REPORT ---
:1995 Author Organization [facility] Address [address] [place] [address] Dr. Warner [address] [place] [address] Care Team Providers Name Role Phone Unavailable Unavailable Unavailable Problems This patient has no known problems. Allergies, Adverse Reactions, Alerts This patient has no known allergies or adverse reactions. Medications This patient has no known medications.
--- OUTSIDE RECORDS SUMMARY | 2019-10-01 23:15 | XMS REPORT | Summary of Care ---
:1995 Author Organization [facility] - [facility] Address [address] [place] [address] Care Team Providers Name Role Phone Nasim Acosta Primary Care Provider Reason for Referral Radiology Services (Routine) Status Reason Specialty Diagnoses / Referred By Referred To Procedures Contact Contact Closed Diagnostic Diagnoses Encounter for routine checking of intrauterine contraceptive device (IUD) Z30.431 (ICD-10-CM) - Encounter for routine checking of intrauterine contraceptive device (IUD) Monical, Radiology Procedures US TRANSVAGINAL CHG ECHOGRAPHY,TRANSVAGINAL [id number] - US TRANSVAGINAL [id number] - CHG ECHOGRAPHY,TRANSVAGINAL Eileen [address] [place] [address] Radiology Services (Routine) Status Reason Specialty Diagnoses / Referred By Referred To Procedures Contact Contact Closed Diagnostic Diagnoses Encounter for routine checking of intrauterine contraceptive device (IUD) Z30.431 (ICD-10-CM) - Encounter for routine checking of intrauterine contraceptive device (IUD) Monical, Radiology Procedures US TRANSVAGINAL CHG ECHOGRAPHY,TRANSVAGINAL [id number] - US TRANSVAGINAL [id number] - CHG ECHOGRAPHY,TRANSVAGINAL Eileen [address] [place] [address] Reason for Visit Radiology Services (Routine) Status Reason Specialty Diagnoses / Referred By Referred To Procedures Contact Contact Closed Diagnostic Diagnoses Encounter for routine checking of intrauterine contraceptive device (IUD) Z30.431 (ICD-10-CM) - Encounter for routine checking of intrauterine contraceptive device (IUD) Monical, Radiology Procedures US TRANSVAGINAL CHG ECHOGRAPHY,TRANSVAGINAL [id number] - US TRANSVAGINAL [id number] - CHG ECHOGRAPHY,TRANSVAGINAL Eileen [address] [place] [address] [place] [address] Encounter Details Date Type Department Care Team Description 04/17/2019 Hospital Encounter Critical access hospital Radiology Arrived [address] [place] [address] [place] [address] Allergies No Known Allergiesdocumented as of this encounter (statuses as of 04/18/2019) Medications No known medicationsdocumented as of this encounter (statuses as of 04/18/2019) Active Problems Not on filedocumented as of this encounter (statuses as of 04/18/2019) Social History Tobacco Use Types Packs/Day Years Used Date Never Assessed Sex Assigned at Date Recorded Not on file Job Start Date Occupation Industry Not on file Not on file Not on file Travel History Travel Start Travel End No recent travel history available. documented as of this encounter Last Filed Vital Signs Not on filedocumented in this encounter Plan of Treatment Health Maintenance Due Date Last Done Comments MENINGOCOCCAL B VACCINES (1 of 2 - 12/04/2007 Risk Bexsero 2-dose series) VARICELLA VACCINES (1 of - + 2010 2-dose series) HPV VACCINES (1 - [...] Procedure Name Priority Date/Time Associated Diagnosis Comments US TRANSVAGINAL Routine 04/17/2019 1:45 PM Encounter for routine Results for this CDT checking of procedure are in intrauterine the results contraceptive device section. (IUD) documented in this encounter Results US TRANSVAGINAL (04/17/2019 1:45 PM CDT) Specimen Narrative Performed At HISTORY:Check IUCD. PACS/VR/DOSE TECHNIQUE: Both transabdominal and transvaginal pelvic ultrasound studies were completed by the technologist. FINDINGS: Uterus is very mobile, of normal size and shape, measures approximately 7.6 x 3.6 x 4.2 cm in size with homogeneous echo texture of the myometrium. T-shaped IUCD is in good position within the uterus. Small amount of fluid is seen in the endocervical canal. Small 3 mm nabothian cyst noted. Endometrial echo complex is 5.0 mm. Minimal free fluid noted in the cul-de-sac. Right ovary is 4.7 x 2.7 x 1.6 cm ( 11.11 ml) and left ovary is 3.9 x 3.4 x 2.3 cm ( 16.81 ml). Small follicles are present in both ovaries and there is a dominant 3 x 1.7 cm size slightly irregular shaped cysts with several small daughter cyst protruding into its lumen. CONCLUSIONS: 1. Normal size uterus with no focal myometrial lesions seen. 2. No endometrial hyperplasia. T-shaped IUCD is in good position within the uterus. 3. 3 cm cyst in the left ovary, consistent with dominant cyst with small daughter cyst protruding into its lumen. Procedure Note [facility], Radiant Results Inft User - 04/17/2019 1:50 PM CDT HISTORY: Check IUCD. TECHNIQUE: Both transabdominal and transvaginal pelvic ultrasound studies were completed by the technologist. FINDINGS: Uterus is very mobile, of normal size and shape, measures approximately 7.6 x 3.6 x 4.2 cm in size with homogeneous echo texture of the myometrium. T-shaped IUCD is in good position within the uterus. Small amount of fluid is seen in the endocervical canal. Small 3 mm nabothian cyst noted. Endometrial echo complex is 5.0 mm. Minimal free fluid noted in the cul-de-sac. Right ovary is 4.7 x 2.7 x 1.6 cm ( 11.11 ml) and left ovary is 3.9 x 3.4 x 2.3 cm ( 16.81 ml). Small follicles are present in both ovaries and there is a dominant 3 x 1.7 cm size slightly irregular shaped cysts with several small daughter cyst protruding into its lumen. CONCLUSIONS: 1. Normal size uterus with no focal myometrial lesions seen. 2. No endometrial hyperplasia. T-shaped IUCD is in good position within the uterus. 3. 3 cm cyst in the left ovary, consistent with dominant cyst with small daughter cyst protruding into its lumen. Performing Organization Address City/State/Zipcode Phone Number PACS/VR/DOSE documented in this encounter Visit Diagnoses Diagnosis Encounter for routine checking of intrauterine contraceptive device (IUD) documented in this encounter (Home) [place] [address] documented as of this encounter
[2019-10-02] MEDS ORDERED: ONDANSETRON 4 MG/2 ML VIAL ONE (00:18)
[2019-10-02] MEDS ORDERED: NA CHLORIDE 0.9% 1,000 ML ONE (00:19)
[2019-10-02] MEDS ORDERED: MORPHINE 2 MG/ML SYR ONE ×2 (00:20→01:12)
[2019-10-02 00:50] LABS: ALT/SGPT 25 U/L (12-78); AST/SGOT 11 U/L (15-37); Albumin 3.2 g/dL (3.4-5.0); Alkaline Phosphatase 82 U/L (45-117); BUN Blood Urea Nitrogen 11 mg/dL (7-18); Bicarbonate 24 mmol/L (21-32); Bilirubin Direct < 0.1 mg/dL (0-0.2); Bilirubin Total 0.1 mg/dL (0.2-1.0); Glucose Level 219 mg/dL (74-106); Potassium 3.8 mmol/L (3.5-5.1); Protein, Total 7.5 g/dL (6.4-8.2); Sodium Level 142 mmol/L (136-145); Troponin (Emerg Dept Use Only) < 0.02 ng/mL (0.0-0.045)
--- NOTE | 2019-10-02 01:24 | ER ---
Nurse's Notes [facility] Name: Kianna Preston Age: 23 yrs Sex: Female : 1995 Arrival Date: 10/01/2019 Time: 23:18 Bed 4 Private MD: Diagnosis: Chest pain. Palpitations Presentation: 10/01 23:40 Presenting complaint: Patient states: she was seen at [place] ED for chest pain this bb morning and told she had PVCs but the pain is not going away. Transition of care: patient was not received from another setting of care. Onset of symptoms was September 30, 2019. Risk Assessment: Do you want to hurt yourself or someone else? Patient reports no desire to harm self or others. Initial Sepsis Screen: Does the patient meet any 2 criteria? No. Patient's initial sepsis screen is negative. Does the patient have a suspected source of infection? No. Patient's initial sepsis screen is negative. Care prior to arrival: None. 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 - Social history:: Smoking status: Patient uses tobacco products, vapes. - Ebola Screening: : No symptoms or risks identified at this time. Screenin:59 Abuse screen: Denies threats or abuse. Nutritional screening: No deficits noted. jd3 Tuberculosis screening: No symptoms or risk factors identified. Fall Risk Ambulatory Aid- None/Bed Rest/Nurse Assist (0 pts). Gait- Normal/Bed Rest/Wheelchair (0 pts) Mental Status- Oriented to own ability (0 pts). Total Narayan Fall Scale indicates No Risk (0-24 pts). Assessment: 23:57 General: Appears in no apparent distress. uncomfortable, Behavior is calm, cooperative, jd3 appropriate for age. Pain: Complains of pain in chest Pain does not radiate. Quality of pain is described as sharp, Pain began suddenly. Neuro: Level of Consciousness is awake, alert, obeys commands, Oriented to person, place, time, situation. Cardiovascular: Heart tones S1 S2 present Capillary refill < 3 seconds Patient's skin is warm and dry. Rhythm is regular. Respiratory: Reports difficulty breathing with pain Airway is patent Respiratory effort is even, unlabored, Respiratory pattern is regular, symmetrical, Breath sounds are clear bilaterally. GI: Abdomen is round non-distended, Bowel sounds present X 4 quads. Abd is soft and non tender X 4 quads. Reports nausea. : No signs and/or symptoms were reported regarding the genitourinary system. EENT: No signs and/or symptoms were reported regarding the EENT system. Derm: Skin is intact, Skin is dry, Skin is normal, Skin temperature is warm. Musculoskeletal: Circulation, motion, and sensation intact. Range of motion: intact in all extremities. 10/02 00:45 Reassessment: Patient appears in no apparent distress at this time. Patient and/or jd3 family updated on plan of care and expected duration. Pain level reassessed. Patient is alert, oriented x 3, equal unlabored respirations, skin warm/dry/pink. Patient states feeling better. 01:15 Reassessment: pt reporting pain returning. jd3 01:33 Reassessment: Patient appears in no apparent distress at this time. Patient and/or jd3 family updated on plan of care and expected duration. Pain level reassessed. Patient is alert, oriented x 3, equal unlabored respirations, skin warm/dry/pink. Patient states feeling better. 01:43 Reassessment: Patient appears in no apparent distress at this time. Patient is alert, jd3 oriented x 3, equal unlabored respirations, skin warm/dry/pink. pt reported understanding of discharge instructions, pt assisted to front of ER with a wheelchair. Vital Signs: 10/01 23:41 BP 102 / 67; Pulse 77; Resp 16 S; Temp 98.4(O); Pulse Ox 99% on R/A; Weight 106.59 kg bb (R); Height 5 ft. 8 in. (172.72 cm) (R); Pain 12/31; 10/02 01:31 BP 108 / 67; Pulse 65; Resp 17 S; Pulse Ox 99% on R/A; jd3 10/01 23:41 Body Mass Index 35.73 (106.59 kg, 172.72 cm) bb ED Course: 10/01 23:18 Patient arrived in ED. cf2 23:41 Triage completed. bb 23:41 Arm band placed on Patient placed in an exam room, on a stretcher, on pulse oximetry. bb Family accompanied patient. 23:43 Bob Odell MD is Attending Physician. pkl 23:51 Jorge Oconnell RN is Primary Nurse. jd3 10/02 00:00 Patient has correct armband on for positive identification. Placed in gown. Bed in low jd3 position. Call light in reach. Side rails up X 1. Adult w/ patient. child monitor on. Pulse ox on. NIBP on. 00:00 Patient maintains SpO2 saturation greater than 95% on room air. jd3 00:12 No provider procedures requiring assistance completed. Inserted saline lock: 20 gauge jd3 in right antecubital area, using aseptic technique. Blood collected. 01:43 IV discontinued, intact, bleeding controlled, No redness/swelling at site. Pressure jd3 dressing applied. Administered Medications: 00:24 Drug: NS 0.9% 1000 ml Route: IV; Rate: 125 ml/hr; Site: right antecubital; jd3 01:44 Follow up: Response: No adverse reaction; IV Status: Order to discontinue infusion; jd3 Order to discontinue infusionpt, pt discharged 00:24 Drug: morphine 2 mg Route: IVP; Site: right antecubital; jd3 00:24 Drug: Zofran 4 mg Route: IVP; Site: right antecubital; jd3 01:20 Follow up: Response: No adverse reaction jd3 01:15 Drug: morphine 2 mg Route: IVP; Site: right antecubital; jd3 01:20 Follow up: Response: No adverse reaction; RASS: Alert and Calm (0) jd3 01:45 Follow up: Response: No adverse reaction; RASS: Alert and Calm (0) jd3 Outcome: 01:24 Discharge ordered by . pkl 01:43 Discharged to home ambulatory, with family. jd3 01:43 Condition: stable 01:43 Discharge instructions given to patient, family, Instructed on discharge instructions, follow up and referral plans. medication usage, Demonstrated understanding of instructions, follow-up care, medications, Prescriptions given X 1. 01:45 Patient left the ED. jd3 Signatures: Bob Odell MD MD pkl Ballard, Brenda RN RN bb Jorge Oconnell RN RN jd3 Gayathri Braun 2
--- NOTE | 2019-10-02 01:24 | EDPHYS ---
Physician Documentation [facility] Name: Kianna Preston Age: 23 yrs Sex: Female : 1995 Arrival Date: 10/01/2019 Time: 23:18 Bed 4 Private MD: ED Physician Bob Odell HPI: 10/01 23:57 This 23 yrs old Female presents to ER via Wheelchair with complaints of Chest pkl Pain. 23:57 The patient or guardian reports chest pain that is located primarily in the substernal pkl area. The pain radiates to the left arm. Associated signs and symptoms: Pertinent positives: palpitations. The chest pain is described as dull. The patient has been recently seen by a physician: with similar presenting complaints, Seen at [facility] ER. 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 - Social history:: Smoking status: Patient uses tobacco products, vapes. - Ebola Screening: : No symptoms or risks identified at this time. ROS: 10/02 00:00 Eyes: Negative for injury, pain, redness, and discharge, ENT: Negative for injury, pkl pain, and discharge, Neck: Negative for injury, pain, and swelling. Cardiovascular: Positive for chest pain, palpitations. Respiratory: Negative for cough, shortness of breath. Abdomen/GI: Negative for abdominal pain, nausea, vomiting, and diarrhea. Back: Negative for acute changes. : Negative for urinary symptoms. MS/extremity: Negative for acute changes. Skin: Negative for rash. Neuro: Negative for altered mental status. Exam: 00:00 Head/Face: Normocephalic, atraumatic. Eyes: Pupils equal round and reactive to light, pkl extra-ocular motions intact. Lids and lashes normal. Conjunctiva and sclera are non-icteric and not injected. Cornea within normal limits. Periorbital areas with no swelling, redness, or edema. ENT: Nares patent. No nasal discharge, no septal abnormalities noted. Tympanic membranes are normal and external auditory canals are clear. Oropharynx with no redness, swelling, or masses, exudates, or evidence of obstruction, uvula midline. Mucous membranes moist. Neck: Trachea midline, no thyromegaly or masses palpated, and no cervical lymphadenopathy. Supple, full range of motion without nuchal rigidity, or vertebral point tenderness. No Meningismus. Chest/axilla: Normal chest wall appearance and motion. Nontender with no deformity. No lesions are appreciated. 00:00 Cardiovascular: Rate: normal, Rhythm: regular, with frequent PVC. 00:00 ECG was reviewed by the Attending Physician. 00:00 Respiratory: the patient does not display signs of respiratory distress, Respirations: normal, Breath sounds: are clear throughout. 00:00 Abdomen/GI: Bowel sounds: normal, Palpation: abdomen is soft and non-tender, in all quadrants. 00:00 Back: Exam negative for acute changes. 00:00 : Exam negative for acute changes. 00:00 Musculoskeletal/extremity: Exam is negative for acute changes. 00:00 Skin: Exam negative for rash. 00:00 Neuro: Orientation: is normal, Mentation: is normal, Cranial nerves: grossly normal, Motor: is normal. Vital Signs: 10/01 23:41 BP 102 / 67; Pulse 77; Resp 16 S; Temp 98.4(O); Pulse Ox 99% on R/A; Weight 106.59 kg bb (R); Height 5 ft. 8 in. (172.72 cm) (R); Pain 4/10; 10/02 01:31 BP 108 / 67; Pulse 65; Resp 17 S; Pulse Ox 99% on R/A; jd3 10/01 23:41 Body Mass Index 35.73 (106.59 kg, 172.72 cm) bb MDM: 10/01 23:43 Patient medically screened. pkl 10/02 01:20 Data reviewed: vital signs, nurses notes, lab test result(s), EKG. ED course: Patient pkl feeling better. Discussed lab. and EKG results with patient. Advised to follow up with [facility] [employer] for further evaluations. Patient understood instructions. 10/01 23:57 Order name: Troponin (emerg Dept Use Only); Complete Time: 01:15 pkl 10/01 23:57 Order name: Chem 7; Complete Time: 01:15 pkl 10/01 23:57 Order name: LFT's; Complete Time: 01:15 pkl 10/01 23:57 Order name: UDS; Complete Time: 03:27 pkl 10/01 23:57 Order name: D-Dimer; Complete Time: 01:15 pkl 10/02 01:28 Order name: Urine Dipstick--Ancillary (enter results) ar5 10/01 23:57 Order name: EKG; Complete Time: 23:57 pkl 10/02 00:16 Order name: IV; Complete Time: 00:16 jd3 10/02 01:28 Order name: Urine --Ancillary (enter results) ar5 Administered Medications: 00:24 Drug: NS 0.9% 1000 ml Route: IV; Rate: 125 ml/hr; Site: right antecubital; jd3 01:44 Follow up: Response: No adverse reaction; IV Status: Order to discontinue infusion; jd3 Order to discontinue infusionpt, pt discharged 00:24 Drug: morphine 2 mg Route: IVP; Site: right antecubital; jd3 00:24 Drug: Zofran 4 mg Route: IVP; Site: right antecubital; jd3 01:20 Follow up: Response: No adverse reaction jd3 01:15 Drug: morphine 2 mg Route: IVP; Site: right antecubital; jd3 01:20 Follow up: Response: No adverse reaction; RASS: Alert and Calm (0) jd3 01:45 Follow up: Response: No adverse reaction; RASS: Alert and Calm (0) jd3 Disposition: 10/02/19 01:24 Discharged to Home. Impression: Chest pain. Palpitations. - Condition is Stable. - Prescriptions for Carvedilol 6.25 mg Oral Tablet - take 1 tablet by ORAL route 2 times per day with food; 30 tablet. - Medication Reconciliation Form, Thank You Letter, Antibiotic Education, Prescription Opioid Use form. - Follow up: Private Physician; When: 2 - 3 days; Reason: Re-evaluation by your physician. - Problem is new. - Symptoms have improved. Signatures: Dispatcher [employer] EDKY Bob Odell MD MD pkl Ballard, Brenda, RN RN Jorge Trujillo RN RN jd3 Corrections: (The following items were deleted from the chart) 01:45 01:24 10/02/2019 01:24 Discharged to Home. Impression: Chest pain. Palpitations. jd3 Condition is Stable. Forms are Medication Reconciliation Form, Thank You Letter, Antibiotic Education, Prescription Opioid Use. Follow up: Private Physician; When: 2 - 3 days; Reason: Re-evaluation by your physician. Problem is new. Symptoms have improved. pkl
[2019-10-02 01:33] LABS: Barbiturates NEGATIVE (NEGATIVE); Benzodiazepines NEGATIVE (NEGATIVE); Cocaine NEGATIVE (NEGATIVE); METHAMPHETAM NEGATIVE (NEGATIVE); Methadone NEGATIVE (NEGATIVE); Opiates NEGATIVE (NEGATIVE); Phencyclidine NEGATIVE (NEGATIVE); THC Cannibis NEGATIVE (NEGATIVE)
[2019-10-02 01:54] VITALS: TEMP 98.4; O2SAT 99
[2019-10-02 01:55] VITALS: BP 108/67
[2019-10-02 04:54] LABS: Urine Blood TRACE (NEG); Urine Glucose TRACE (NEG); Urine Protein NEGATIVE (NEG); Urine Specific Gravity >1.030 (1.005-1.030)
--- NOTE | 2019-10-02 12:18 | EKG ---
Test Date: 2019-10-01 Test Time: 23:49:08 Railroad Detective: WICHO MEASUREMENT RESULTS: Intervals: Rate: 84 [place]: 148 QRSD: 78 QT: 412 QTc: 486 [place]: P: 35 [place]: 148 QRS: 38 T: 59 INTERPRETIVE STATEMENTS: Sinus rhythm with frequent premature ventricular complexes Abnormal ECG Compared to ECG 09/04/2018 23:07:01 Ventricular premature complex(es) now present Sinus tachycardia no longer present Electronically Signed On 10-02-19 12:18:08 ASSOCIATE SALES MANAGER by Pablo Queen
== END 2019-10-02 01:45 | disposition home or self-care (01) ==
LOC: ER 23:13
DX: R07.9 Chest pain, unspecified (principal); R00.2 Palpitations
CPT/HCPCS: 36415; 80048; 80076; 80307; 81003; 81025; 84484; 85379; 93005; 96361; 96374; 96375; 99285; J2270; J2405; J7030

== ENCOUNTER 2020-05-31 10:46 | Emergency (ER) | payer SELFPAY ==
--- OUTSIDE RECORDS SUMMARY | 2020-05-31 11:34 | XMS REPORT | Continuity of Care Document ---
:1995 Author Organization [facility] t Address [address] [place] [address] Care Team Providers Name Role Phone Radiology Attending Clinician Unavailable Doctor Unassigned, Name Attending Clinician Unavailable Problems This patient has no known problems. Allergies, Adverse Reactions, Alerts This patient has no known allergies or adverse reactions. Medications This patient has no known medications. Procedures This patient has no known procedures. Encounters Start End Encounter Admission Attending Care Care Encounter Source Date/Time Date/Time Type Type Clinicians Facility Department ID 2019-04-17 2019-04-17 [facility] Radiology [facility] [id number] 13:12:28 23:59:00 Encounter Kerrie [id number] [place] [id number] [place] [id number] 2019-04-17 2019-04-17 Orders Doctor DIANNE [id number] 00:00:00 00:00:00 Only UnassignedELLI [id number] Espy [facility] [id number] Results This patient has no known results.
[2020-05-31 11:42] LABS: Basophils % 0.6 % (0-1.3); Lymphocytes % 31.9 % (15.3-44.8); MPV 8.4 fL (7.6-11.3); RBC Red Blood Cell Count 4.34 M/uL (3.86-4.86)
[2020-05-31 11:51] LABS: Urine Bacteria 20-50 /HPF (<20); Urine Culture Reflex Order REFLEXED; Urine Mucus 1+ /HPF (NONE SEEN); Urine RBC <5 /HPF (NONE SEEN)
[2020-05-31] MEDS ORDERED: ACETAMINOPHEN 325 MG TABLET ONE (11:57)
[2020-05-31 12:17] LABS: BUN Blood Urea Nitrogen 11 mg/dL (7-18); Bicarbonate 25 mmol/L (21-32); Glucose Level 119 mg/dL (74-106); HCG, Quantitative 1077 mIU/mL (1-3); Potassium 3.8 mmol/L (3.5-5.1); Sodium Level 138 mmol/L (136-145)
--- NOTE | 2020-05-31 12:47 | RAD REPORT ---
EXAM DESCRIPTION: US - Transvaginal OB - 05/31/2020 12:23 pm CLINICAL HISTORY: lower abdomen pain Pelvic pain. COMPARISON: No comparisons FINDINGS: The uterus is normal sized. Endometrial stripe appears mildly thickened measuring 10 mm, h owever, there is no IUP findings seen. The maternal adnexa and ovaries are within normal limits. Normal Doppler blood flow was demonstrated to both ovaries. IMPRESSION: Thickened endometrial stripe is noted. No IUP is confirmed. In the setting of a positive HCG level, this would be considered a of unknown location. Advise serial HCG levels and in terval follow-up pelvic ultrasound in 10-12 days.
--- NOTE | 2020-05-31 13:03 | ER ---
Nurse's Notes [facility] Name: Kianna Preston Age: 24 yrs Sex: Female : 1995 Arrival Date: 05/31/2020 Time: 10:49 Bed 18 Private MD: Diagnosis: related conditions, unspecified, first trimester;Low back pain;Urinary tract infection, site not specified;Lower abdominal pain, unspecified Presentation: 05/31 10:53 Chief complaint: Patient states: G1, P0. LMP: 04/26/20 Went to help center ll1 today for confirmation. Approximately 5 weeks . Cramping abdominal pain for 7-10 days. Mid and lower back pain for 4-5 days. They suggested she come to ER to get checked. Coronavirus screen: Client denies travel out of the [place] in the last 14 days. At this time, the client does not indicate any symptoms associated with coronavirus-19. Ebola Screen: Patient denies travel to an Ebola-affected area in the 21 days before illness onset. Initial Sepsis Screen: Does the patient meet any 2 criteria? No. Patient's initial sepsis screen is negative. Risk Assessment: Do you want to hurt yourself or someone else? Patient reports no desire to harm self or others. Onset of symptoms was May 22, 2020. 10:53 Method Of Arrival: Ambulatory ll1 10:53 Acuity: STEPHANY 3 ll1 11:53 Initial Sepsis Screen: Does the patient have a suspected source of infection? No. ll2 Patient's initial sepsis screen is negative. Triage Assessment: 11:38 General: Appears in no apparent distress. Behavior is calm, cooperative, appropriate ll2 for age. Pain: Complains of pain in low back area Pain currently is 6 out of 10 on a pain scale. Aggravated by Pt states her pain is decreased when lying still but jumps to a 6 or 7 when moving around. EENT: No signs and/or symptoms were reported regarding the EENT system. Neuro: Level of Consciousness is awake, alert, obeys commands, Oriented to person, place, time, situation. Cardiovascular: Capillary refill < 3 seconds Patient's skin is warm and dry. Respiratory: Airway is patent Respiratory effort is even, unlabored, Respiratory pattern is regular, symmetrical. GI: Abd is soft Abdomen is tender to palpation in suprapubic area, right lower quadrant and left lower quadrant. : Denies burning with urination, urinary frequency, urgency. Derm: Skin is intact, is healthy with good turgor, Skin is dry, Skin is pink, warm \T\ dry. Skin temperature is warm. Musculoskeletal: Circulation, motion, and sensation intact. Range of motion: intact in all extremities. PRIMARY CLINICIAN: 11:20 1, Full Term 0, 0, Living 0, LMP 04/2020, Verified, EDC cp 01/28/2021, Gestational age from LMP: 5 weeks 4 days 11:56 LMP 04/23/2020 ll2 Historical: - Allergies: 10:57 No Known Allergies; ll1 - PMHx: 10:57 adhd; Anxiety; Bipolar disorder; Diabetes - NIDDM; Suicide Attempts; ll1 - PSHx: 10:57 foot sx; ll1 - Immunization history:: Flu vaccine is up to date. - Social history:: Smoking status: Reported history of juuling and/or vaping. Patient uses alcohol, only on a social basis. Patient/guardian denies using street drugs. Screenin:50 Abuse screen: Denies threats or abuse. Nutritional screening: No deficits noted. ll2 Tuberculosis screening: No symptoms or risk factors identified. Fall Risk IV access (20 points). Ambulatory Aid- None/Bed Rest/Nurse Assist (0 pts). Gait- Normal/Bed Rest/Wheelchair (0 pts) Mental Status- Oriented to own ability (0 pts). Total Narayan Fall Scale indicates No Risk (0-24 pts). Assessment: 11:42 General: see triage assessment. Neuro: Level of Consciousness is awake, alert, obeys ll2 commands, Oriented to person, place, time, situation. Vital Signs: 10:53 BP 132 / 79; Pulse 63; Resp 17; Temp 98.6; Pulse Ox 100% ; Pain 5/10; ll1 11:42 BP 117 / 76; Pulse 72; Resp 14; Pulse Ox 100% on R/A; Pain 6/10; ll2 12:29 BP 116 / 74; Pulse 76; Resp 15; Temp 98.6; Pulse Ox 100% on R/A; ll2 12:59 BP 120 / 76; Pulse 72; Resp 16; Temp 97.8; Pulse Ox 100% on R/A; ll2 ED Course: 10:49 Patient arrived in ED. mr 10:56 Triage completed. ll1 10:57 Arm band placed on Patient placed in an exam room, on a stretcher. ll1 11:05 Antonio Knutson MD is Attending Physician. rn 11:06 Vimal Kramer PA is PHCP. cp 11:12 Kyra Kelly, RN is Primary Nurse. miguelina 11:37 Bronwyn Laguerre, RN is Primary Nurse. ll2 11:49 Inserted saline lock: 20 gauge in left forearm, using aseptic technique. ll2 11:50 Patient has correct armband on for positive identification. Placed in gown. Bed in low ll2 position. Call light in reach. Pulse ox on. NIBP on. Warm blanket given. 11:51 Initial lab(s) drawn, by me, sent to lab. Urine collected: clean catch specimen, clear. ll2 12:22 US Transvaginal Ob In Process Unspecified. EDMS 12:59 No provider procedures requiring assistance completed. ll2 13:18 IV discontinued, intact, bleeding controlled, No redness/swelling at site. Pressure ll2 dressing applied. Administered Medications: 11:49 Drug: Tylenol 650 mg Route: PO; ll2 11:52 Follow up: Response: No adverse reaction ll2 Outcome: 13:02 Discharge ordered by . cp 13:18 Discharged to home ambulatory. ll2 13:18 Condition: stable 13:18 Discharge instructions given to patient, Instructed on discharge instructions, follow up and referral plans. medication usage. 13:19 Patient left the ED. ll2 Signatures: Dispatcher [employer] [facility] Katrin Morales mr Antonio Knutson MD MD rn Vimal Kramer PA PA cp Kyra Kelly, RN RN jl7 Bronwyn Laguerre, RN RN ll2 Ottoniel Lockwood RN RN ll1
--- NOTE | 2020-05-31 13:03 | EDPHYS ---
Physician Documentation [facility] Name: Kianna Preston Age: 24 yrs Sex: Female : 1995 Arrival Date: 05/31/2020 Time: 10:49 Bed 18 Private MD: ED Physician Antonio Knutson HPI: 05/31 11:20 This 24 yrs old Female presents to ER via Ambulatory with complaints of 5 wks cp , Back Pain. 11:20 The patient presents to the emergency department with abdominal pain, of the suprapubic cp area, lower back pain. The estimated gestational age is 5 weeks. course: care: none, Leakage of Fluid: none appreciated, Ultrasound: the patient has not had an ultrasound. Previous pregnancies: the patient has never been . 11:20 Associated signs and symptoms: Pertinent positives: abdominal pain, low back pain, cp Pertinent negatives: diarrhea, dysuria, fever, vaginal bleeding, vaginal discharge, vomiting. 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 - Social history:: Smoking status: Reported history of juuling and/or vaping. Patient uses alcohol, only on a social basis. Patient/guardian denies using street drugs. ROS: 11:25 Constitutional: Negative for body aches, chills, fever, poor PO intake. cp 11:25 Eyes: Negative for injury, pain, redness, and discharge. cp 11:25 Cardiovascular: Negative for chest pain. 11:25 Respiratory: Negative for cough, shortness of breath, wheezing. 11:25 Abdomen/GI: Positive for abdominal pain, Negative for nausea, vomiting, and diarrhea, constipation. 11:25 Back: Positive for pain at rest, of the low back area. 11:25 : Negative for urinary symptoms, flank pain, vaginal bleeding, vaginal discharge. 11:25 Neuro: Negative for altered mental status, headache, weakness. 11:25 All other systems are negative. Exam: 11:30 Constitutional: The patient appears in no acute distress, alert, awake, non-toxic, well cp developed, well nourished. 11:30 Head/Face: Normocephalic, atraumatic. cp 11:30 Eyes: Periorbital structures: appear normal, Conjunctiva: normal, no exudate, no injection, Sclera: no appreciated abnormality, Lids and lashes: appear normal, bilaterally. 11:30 ENT: External ear(s): are unremarkable, Nose: is normal, Mouth: Lips: moist, Oral mucosa: moist, Posterior pharynx: Airway: no evidence of obstruction, patent. 11:30 Chest/axilla: Inspection: normal. 11:30 Cardiovascular: Rate: normal, Rhythm: regular. 11:30 Respiratory: the patient does not display signs of respiratory distress, Respirations: normal, no use of accessory muscles, no retractions, labored breathing, is not present. 11:30 Abdomen/GI: Inspection: abdomen appears normal, Bowel sounds: active, all quadrants, Palpation: soft, in all quadrants, mild abdominal tenderness, in the suprapubic area, rebound tenderness, is not appreciated, voluntary guarding, is not appreciated, involuntary guarding, is not appreciated. 11:30 Back: pain, that is mild, of the low back area, ROM is normal. Vital Signs: 10:53 BP 132 / 79; Pulse 63; Resp 17; Temp 98.6; Pulse Ox 100% ; Pain 5/10; ll1 11:42 BP 117 / 76; Pulse 72; Resp 14; Pulse Ox 100% on R/A; Pain 6/10; ll2 12:29 BP 116 / 74; Pulse 76; Resp 15; Temp 98.6; Pulse Ox 100% on R/A; ll2 12:59 BP 120 / 76; Pulse 72; Resp 16; Temp 97.8; Pulse Ox 100% on R/A; ll2 MDM: 11:05 Patient medically screened. rn 11:30 Differential diagnosis: STD, threatened Ab, inevitable Ab, complete Ab, ectopic cp . 13:01 Data reviewed: vital signs, nurses notes, lab test result(s), radiologic studies, cp ultrasound, I have discussed the patient's presentation/case with the attending Emergency Department Physician; and as a result, I will discharge patient. 13:01 Counseling: I had a detailed discussion with the patient and/or guardian regarding: the cp historical points, exam findings, and any diagnostic results supporting the discharge/admit diagnosis, lab results, radiology results, the need for outpatient follow up, an OB/Gyne specialist, to return to the emergency department if symptoms worsen or persist or if there are any questions or concerns that arise at home. ED course: VSS. Discussed results of labs and US. Patient instructed to recheck beta-hcg in 48 hrs and f/u with OB. Return to ED worsening pain, vaginal bleeding. 05/31 11:13 Order name: Quantitative Hcg; Complete Time: 12:29 05/31 11:13 Order name: Abo/rh Typing; Complete Time: 12:07 05/31 11:13 Order name: Basic Metabolic Panel; Complete Time: 12:29 05/31 11:13 Order name: CBC with Diff; Complete Time: 12:07 05/31 11:13 Order name: Urine Microscopic Only; Complete Time: 12:07 05/31 12:07 Interpretation: Normal except: UBACT 20-50; SQEPI 10-20. 05/31 11:26 Order name: Urine Dipstick--Ancillary (enter results) [facility] 05/31 11:13 Order name: Urine Test (obtain specimen); Complete Time: 11:25 05/31 11:13 Order name: IV Saline Lock; Complete Time: 11:37 05/31 11:13 Order name: Labs collected and sent; Complete Time: 11:37 05/31 11:13 Order name: NPO; Complete Time: 11:37 05/31 11:26 Order name: Urine --Ancillary (enter results) [facility] 05/31 11:37 Order name: US Transvaginal Ob; Complete Time: 12:53 05/31 12:53 Interpretation: Report reviewed. 05/31 11:52 Order name: Urine Culture [facility] 05/31 11:13 Order name: Urine Dipstick-Ancillary (obtain specimen); Complete Time: 11:25 cp Administered Medications: 11:49 Drug: Tylenol 650 mg Route: PO; ll2 11:52 Follow up: Response: No adverse reaction ll2 Disposition: 15:21 Co-signature as Attending Physician, Antonio Knutson MD. rn Disposition: 05/31/20 13:02 Discharged to Home. Impression: related conditions, unspecified, first trimester, Low back pain, Urinary tract infection, site not specified, Lower abdominal pain, unspecified. - Condition is Stable. - Discharge Instructions: Abdominal Pain During , and Urinary Tract Infection, Pelvic Rest. - Prescriptions for Macrobid 100 mg Oral Capsule - take 1 capsule by ORAL route every 12 hours for 7 days; 14 capsule. Vitamin 27- 0.8 mg Oral Tablet - take 1 tablet by ORAL route once daily; 30 tablet. - Medication Reconciliation Form, Thank You Letter, Antibiotic Education, Prescription Opioid Use form. - Follow up: Private Physician; When: 48 Hours; Reason: Repeat Beta-HCG (48 Hours). - Problem is new. - Symptoms have improved. Signatures: Dispatcher [employer] EDMS Antonio Knutson MD MD rn Vimal Kramer PA PA cp Kyra Kelly RN RN jl7 Bronwyn Laguerre RN RN ll2 Ottoniel Lockwood RN RN ll1 Corrections: (The following items were deleted from the chart) 11:26 11:23 This 24 yrs old Female presents to ER via Ambulatory with complaints of cp 5 wks , Back Pain. cp 13:03 13:02 05/31/2020 13:02 Discharged to Home. Impression: related conditions, cp unspecified, first trimester; Low back pain. Condition is Stable. Forms are Medication Reconciliation Form, Thank You Letter, Antibiotic Education, Prescription Opioid Use. Follow up: Private Physician; When: 48 Hours; Reason: Repeat Beta-HCG (48 Hours). Problem is new. Symptoms have improved. cp 13:04 13:03 05/31/2020 13:02 Discharged to Home. Impression: related conditions, cp unspecified, first trimester; Low back pain; Urinary tract infection, site not specified. Condition is Stable. Discharge Instructions: Abdominal Pain During , and Urinary Tract Infection, Pelvic Rest. Prescriptions for Macrobid 100 mg Oral Capsule - take 1 capsule by ORAL route every 12 hours for 7 days; 14 capsule, Vitamin 27-0.8 mg Oral Tablet - take 1 tablet by ORAL route once daily; 30 tablet. and Forms are Medication Reconciliation Form, Thank You Letter, Antibiotic Education, Prescription Opioid Use. Follow up: Private Physician; When: 48 Hours; Reason: Repeat Beta-HCG (48 Hours). Problem is new. Symptoms have improved. cp 13:19 13:04 05/31/2020 13:02 Discharged to Home. Impression: related conditions, ll2 unspecified, first trimester; Low back pain; Urinary tract infection, site not specified; Lower abdominal pain, unspecified. Condition is Stable. Discharge Instructions: Abdominal Pain During , and Urinary Tract Infection, Pelvic Rest. Prescriptions for Macrobid 100 mg Oral Capsule - take 1 capsule by ORAL route every 12 hours for 7 days; 14 capsule, Vitamin 27-0.8 mg Oral Tablet - take 1 tablet by ORAL route once daily; 30 tablet. and Forms are Medication Reconciliation Form, Thank You Letter, Antibiotic Education, Prescription Opioid Use. Follow up: Private Physician; When: 48 Hours; Reason: Repeat Beta-HCG (48 Hours). Problem is new. Symptoms have improved. cp
[2020-05-31 14:27] LABS: Urine Blood TRACE (NEG); Urine Glucose NEGATIVE (NEG); Urine Protein NEGATIVE (NEG); Urine Specific Gravity 1.015 (1.005-1.030); Urine pH 5.5 (5.0-7.0)
[2020-05-31 18:18] VITALS: O2SAT 100
[2020-05-31 18:22] VITALS: BP 120/76; TEMP 97.8
== END 2020-05-31 13:19 | disposition home or self-care (01) ==
LOC: ER 10:46
DX: O23.41 Unspecified infection of urinary tract in pregnancy, first trimester (principal); Z3A.01 Less than 8 weeks gestation of pregnancy
CPT/HCPCS: 36415; 76817; 80048; 81003; 81015; 81025; 84702; 85025; 86900; 86901; 87086; 87088; 99284

== ENCOUNTER 2020-06-02 07:58 | Emergency (ER) | payer SELFPAY ==
--- OUTSIDE RECORDS SUMMARY | 2020-06-02 08:01 | XMS REPORT | Continuity of Care Document ---
:1995 Author Organization [facility] t Address [address] [place] [address] Care Team Providers Name Role Phone Radiology [...] Type Clinicians Facility Department ID 2019-04-17 2019-04-17 [facility] Radiology [facility] [id number] 13:12:28 23:59:00 Encounter Kerrie [id number] [place] [id number] [place] [id number] 2019-04-17 2019-04-17 Orders Doctor DIANNE [id number] 00:00:00 00:00:00 Only Unassigned, ELLI [id number] [place] [facility] [id number] Results This patient has no known results.
--- NOTE | 2020-06-02 09:17 | ER ---
Nurse's Notes [facility] Name: Kianna Preston Age: 24 yrs Sex: Female : 1995 Arrival Date: 06/02/2020 Time: 08:00 Bed 14 Private MD: Diagnosis: Encounter for test Presentation: 06/02 08:20 Chief complaint: Patient states: was here two days ago to have repeat HCG level drawn, iw is approx 5 weeks . Coronavirus screen: At this time, the client does not indicate any symptoms associated with coronavirus-19. Ebola Screen: Patient negative for fever greater than or equal to 101.5 degrees Fahrenheit, and additional compatible Ebola Virus Disease symptoms Patient denies exposure to infectious person. Patient denies travel to an Ebola-affected area in the 21 days before illness onset. No symptoms or risks identified at this time. Initial Sepsis Screen: Does the patient meet any 2 criteria? No. Patient's initial sepsis screen is negative. Does the patient have a suspected source of infection? No. Patient's initial sepsis screen is negative. Risk Assessment: Do you want to hurt yourself or someone else? Patient reports no desire to harm self or others. Onset of symptoms was June 02, 2020. 08:20 Method Of Arrival: Ambulatory iw 08:20 Acuity: STEPHANY 4 iw Triage Assessment: 08:53 General: Appears in no apparent distress. comfortable, Behavior is calm, cooperative, bp appropriate for age. Pain: Denies pain. EENT: No deficits noted. Neuro: No deficits noted. Cardiovascular: No deficits noted. Respiratory: No deficits noted. GI: No signs and/or symptoms were reported involving the gastrointestinal system. : No signs and/or symptoms were reported regarding the genitourinary system. Derm: No deficits noted. Musculoskeletal: No deficits noted. 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 - Social history:: Smoking status: Patient/guardian denies using tobacco. Screenin:36 Abuse screen: Denies threats or abuse. Denies injuries from another. Nutritional iw screening: No deficits noted. Tuberculosis screening: No symptoms or risk factors identified. Fall Risk None identified. Assessment: 08:35 General: Appears in no apparent distress. comfortable, Behavior is calm, cooperative. iw Pain: Complains of pain in abdomen. Neuro: Level of Consciousness is awake, alert, obeys commands, Oriented to person, place, time, situation, Moves all extremities. Full function. Cardiovascular: Patient's skin is warm and dry. Respiratory: Respiratory effort is even, unlabored, Respiratory pattern is regular, symmetrical. GI: Bowel sounds present X 4 quads. Abd is soft and non tender X 4 quads. Derm: Skin is intact, is healthy with good turgor. Musculoskeletal: Range of motion: intact in all extremities. Vital Signs: 08:20 BP 102 / 63; Pulse 68; Resp 16; Temp 98.2; Pulse Ox 100% ; Weight 110.22 kg; Height 5 iw ft. 8 in. (172.72 cm); 08:20 Body Mass Index 36.95 (110.22 kg, 172.72 cm) iw ED Course: 08:00 Patient arrived in ED. ag5 08:20 Jaiden Dawson PA is PHCP. jr8 08:20 Antonio Knutson MD is Attending Physician. jr8 08:22 Triage completed. iw 08:23 Arm band placed on. iw 08:35 Heidi Ramos, [place] is Primary Nurse. iw 08:35 Patient has correct armband on for positive identification. iw 08:36 No provider procedures requiring assistance completed. Initial lab(s) drawn, by co, iw sent to lab. Patient did not have IV access during this emergency room visit. Administered Medications: No medications were administered Outcome: 09:16 Discharge ordered by . jr8 09:51 Discharged to home ambulatory. iw 09:51 Condition: good 09:51 Discharge instructions given to patient, Instructed on discharge instructions, follow up and referral plans. Demonstrated understanding of instructions, follow-up care. 09:52 Patient left the ED. ca1 Signatures: Heidi Ramos, [place] MURRELL iw Jaiden Dawson PA PA jr8 Marko Bagley RN RN bp Britt Medeiros RN RN ca1 Gertrudis Abrams ag5
--- NOTE | 2020-06-02 09:17 | EDPHYS ---
Physician Documentation [facility] Name: Kianna Preston Age: 24 yrs Sex: Female : 1995 Arrival Date: 06/02/2020 Time: 08:00 Bed 14 Private MD: ED Physician Antonio Knutson HPI: 06/02 08:38 This 24 yrs old Female presents to ER via Ambulatory with complaints of jr8 Abdominal Pain, Low Back Pain, OB Recheck. 08:38 Onset: The symptoms/episode began/occurred gradually, 3 day(s) ago. The symptoms do not jr8 radiate. Associated signs and symptoms: none. The symptoms are described as crampy. Modifying factors: The symptoms are alleviated by nothing, the symptoms are aggravated by nothing. Severity of pain: At its worst the pain was mild. The patient has not experienced similar symptoms in the past. The patient has been recently seen by a physician:. Patient currently 5 weeks positive. Being treated for UTI. Came back for HCG recheck today. Had blood work and US completed two days ago showing early possibly with unidentified IUP at this moment. No new s/s today. 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 - Social history:: Smoking status: Patient/guardian denies using tobacco. ROS: 08:38 Eyes: Negative for injury, pain, redness, and discharge, ENT: Negative for injury, jr8 pain, and discharge, Neck: Negative for injury, pain, and swelling, Cardiovascular: Negative for chest pain, palpitations, and edema, Respiratory: Negative for shortness of breath, cough, wheezing, and pleuritic chest pain, Back: Negative for injury and pain, MS/Extremity: Negative for injury and deformity, Skin: Negative for injury, rash, and discoloration, Neuro: Negative for headache, weakness, numbness, tingling, and seizure. 08:38 Abdomen/GI: Positive for abdominal cramps, Negative for nausea, vomiting, and diarrhea. 08:38 : Negative for hematuria, pelvic pain, flank pain, vaginal bleeding, vaginal discharge, vaginal itching. Exam: 08:38 Constitutional: This is a well developed, well nourished patient who is awake, alert, jr8 and in no acute distress. Cardiovascular: Regular rate and rhythm with a normal S1 and S2. No gallops, murmurs, or rubs. Normal PMI, no JVD. No pulse deficits. Respiratory: Lungs have equal breath sounds bilaterally, clear to auscultation and percussion. No rales, rhonchi or wheezes noted. No increased work of breathing, no retractions or nasal flaring. Abdomen/GI: Soft, non-tender, with normal bowel sounds. No distension or tympany. No guarding or rebound. No evidence of tenderness throughout. Back: No spinal tenderness. No costovertebral tenderness. Full range of motion. Skin: Warm, dry with normal turgor. Normal color with no rashes, no lesions, and no evidence of cellulitis. MS/ Extremity: Pulses equal, no cyanosis. Neurovascular intact. Full, normal range of motion. Neuro: Awake and alert, GCS 15, oriented to person, place, time, and situation. Cranial nerves II-XII grossly intact. Motor strength 5/5 in all extremities. Sensory grossly intact. Cerebellar exam normal. Normal gait. Vital Signs: 08:20 BP 102 / 63; Pulse 68; Resp 16; Temp 98.2; Pulse Ox 100% ; Weight 110.22 kg; Height 5 iw ft. 8 in. (172.72 cm); 08:20 Body Mass Index 36.95 (110.22 kg, 172.72 cm) iw MDM: 08:38 Patient medically screened. jr8 08:38 Data reviewed: vital signs, nurses notes, lab test result(s). Data interpreted: Pulse jr8 oximetry: on room air is 100 %. Interpretation: normal. Counseling: I had a detailed discussion with the patient and/or guardian regarding: the historical points, exam findings, and any diagnostic results supporting the discharge/admit diagnosis, lab results, the need for outpatient follow up, an OB/Gyne specialist, to return to the emergency department if symptoms worsen or persist or if there are any questions or concerns that arise at home. 06/02 08:02 Order name: HCG-Quantitative; Complete Time: 09:13 rn Administered Medications: No medications were administered Disposition: 16:27 Co-signature as Attending Physician, Antonio Knutson MD. rn Disposition: 06/02/20 09:16 Discharged to Home. Impression: Encounter for test. - Condition is Stable. - Discharge Instructions: Abdominal Pain During , Ectopic , First Trimester of . - Medication Reconciliation Form, Thank You Letter, Antibiotic Education, Prescription Opioid Use form. - Follow up: Private Physician; When: 2 - 3 days; Reason: Recheck today's complaints, Continuance of care, Re-evaluation by your physician. - Problem is new. - Symptoms have improved. Signatures: Dispatcher [employer] EDMS Heidi Ramos RN Antonio Monroe MD MD rn Roszak, Josh, PA PA jr8 Waldemar, Britt RN RN ca1 Corrections: (The following items were deleted from the chart) 09:52 09:16 06/02/2020 09:16 Discharged to Home. Impression: Encounter for test. ca1 Condition is Stable. Forms are Medication Reconciliation Form, Thank You Letter, Antibiotic Education, Prescription Opioid Use. Follow up: Private Physician; When: 2 - 3 days; Reason: Recheck today's complaints, Continuance of care, Re-evaluation by your physician. Problem is new. Symptoms have improved. jr8
[2020-06-02 09:56] VITALS: BP 102/63; TEMP 98.2; O2SAT 100
== END 2020-06-02 09:52 | disposition home or self-care (01) ==
LOC: ER 07:58
DX: Z32.01 Encounter for pregnancy test, result positive (principal)
CPT/HCPCS: 36415; 84702; 99283

== ENCOUNTER 2020-08-02 19:55 | Emergency (ER) | payer OTHER, SELFPAY ==
--- OUTSIDE RECORDS SUMMARY | 2020-08-02 19:57 | XMS REPORT | Continuity of Care Document ---
:1995 Author Organization [facility] t Address [address] [place] [address] Care Team Providers Name Role Phone [place] DO Attending Clinician Radiology Attending Clinician Unavailable Doctor Unassigned, Name Attending Clinician Unavailable Problems This patient has no known problems. Allergies, Adverse Reactions, Alerts This patient has no known allergies or adverse reactions. Medications This patient has no known medications. Procedures This patient has no known procedures. Encounters Start End Encounter Admission Attending Care Care Encounter Source Date/Time Date/Time Type Type Clinicians Facility Department ID 2020-07-18 2020-07-18 Emergency Singer [facility] [id number] 02:20:00 05:24:00 Ino Sy [id number] [place] [id number] [place] [id number] 2019-04-17 2019-04-17 [facility] Radiology [facility] [id number] 13:12:28 23:59:00 Encounter Kerrie [id number] [place] [id number] [place] [id number] 2019-04-17 2019-04-17 Orders Doctor DEAN [id number] 00:00:00 00:00:00 Only UnassELLI [id number] [place] [facility] [id number] Results This patient has no known results.
--- OUTSIDE RECORDS SUMMARY | 2020-08-02 19:58 | XMS REPORT | Summary of Care ---
:1995 Author Organization [facility] - Health Address [address] [place] [address] Care Team Providers Name Role Phone Tayo Hansen Insurance Hmo Pcp, Does Not Have A Primary Care Provider Reason for Referral Radiology Services (STAT) Status Reason Specialty Diagnoses / Referred By Referred To Procedures Contact Contact New Request Diagnostic Diagnoses Suprapubic pain Ino Whitehead, Radiology Procedures US FIRST TRIMESTER LESS THAN 14 WEEKS WITH TRANSVAGINAL DO [address] [facility]. [address] [place] [address] Reason for Visit Reason Comments Suprapubic Pain 12 weeks preg Auth/Cert Status Reason Specialty Diagnoses / Referred By Referred To Procedures Contact Contact Emergency Medicine [facility] Em ergency Dept [address] [place] [id number] Fax: Encounter Details Date Type Department Care Team Description 07/18/2020 Emergency [facility]-Emergency Ino Whitehead DO Subchorionic hematoma in first trimester , single or unspecified fetus (Primary Dx); Department [address] [place] [address]. Suprapubic pain; [address] [place] [address] [address] Urinary tract infection in mother during first [place] [address] [place] [address] [phone] Allergies No Known Allergiesdocumented as of this encounter (statuses as of 07/18/2020) Medications Medication Sig Dispensed Refills Start Date End Date Status phenazopyridine 200 mg Take 1 tablet 9 tablet 0 07/18/2020 Active tabletIndications: by mouth 3 Urinary tract infection (three) times in mother during first daily. trimester of documented as of this encounter (statuses as of 07/18/2020) Active Problems Not on filedocumented as of this encounter (statuses as of 07/18/2020) Social History Tobacco Use Types Packs/Day Years Used Date Never Assessed Sex Assigned at Date Recorded Not on file COVID-19 Exposure Response Date Recorded In the last month, have you been in contact with No / Unsure 07/18/2020 2:18 AM CDT someone who was confirmed or suspected to have Coronavirus / COVID-19? documented as of this encounter Last Filed Vital Signs Vital Sign Reading Time Taken Comments Blood Pressure 106/76 07/18/2020 4:00 AM CDT Pulse 76 07/18/2020 4:00 AM CDT Temperature 36.9 C (98.4 F) 07/18/2020 2:26 AM CDT Respiratory Rate 18 07/18/2020 4:00 AM CDT Oxygen Saturation 95% 07/18/2020 4:00 AM CDT Inhaled Oxygen Concentration - - Weight 110.2 kg (243 lb) 07/18/2020 2:26 AM CDT Height - - Body Mass Index - - documented in this encounter Discharge Instructions Ino Posey DO - 07/18/2020 DIAGNOSIS Diagnoses that have been ruled out: None Diagnoses that are still under consideration: None Final diagnoses: Suprapubic pain Urinary tract infection in mother during first trimester of NO LIFE-THREATENING FINDINGS ON TODAY'S EXAM. PROCEDURES IN THE ER TODAY: Orders Placed This Encounter Procedures US FIRST TRIMESTER LESS THAN 14 WEEKS WITH TRANSVAGINAL URINALYSIS URINE CULTURE CBC WITH DIFF COMP. METABOLIC PANEL (70307) Type and Screen - ONCE Routine TOTAL BETA HCG ASSAY MEDICATIONS ADMINISTERED IN THE ER TODAY AND DISCHARGE MEDICATIONS: No orders of the defined types were placed in this encounter. FOLLOW-UP RECOMMENDATIONS: RECOMMEND FOLLOW-UP WITH A PRIMARY CARE PROVIDER OR SPECIALIST IN 2-5 DAYS, ESPECIALLY IF NO IMPROVEMENT IN SYMPTOMS. MAY FOLLOW-UP WITH A PROVIDER OF YOUR CHOICE, SUCH : 1. A PHYSICIAN OF YOUR CHOICE 2. [facility], . LOCATIONS IN [facility] 3. [facility], [address], [place]; [phone] OR, IF YOU WISH TO FOLLOW-UP WITHIN THE [facility], MAY TRY THESE OPTIONS (CLINIC APPOINTMENTS AVAILABLE ON [id number] BASIS): 1. SCHEDULE AN APPOINTMENT ONLINE AT WWW.[facility] 2. OR CALL THE [facility] ACCESS CENTER AT OR 3. OR CALL YOUR [facility] PHYSICIAN'S OFFICE DIRECTLY IF YOU ARE ALREADY AN ESTABLISHED [facility] PATIENT. RETURN TO ER FOR WORSENING OF SYMPTOMS. AttachmentsThe following attachments cannot be sent through Care Everywhere. Urinary Tract Infections in Women (Dutch)documented in this encounter ED Notes Zackery Franks RN - 07/18/2020 2:25 AM CDTPt reports waking up from sleep about an hour ago with suprapubic pain and n/v x 3. Patient reports[place] Dr. [place] in [place] [facility] at five weeks for cramping with intrauterine live confirmed.No vaginal bleeding/discharge. Pt currently on Macrobid for UTI (day 2). 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 Previous US did not demonstrate IUP. Has Type II DM. Poor control. States she woke up with severe pain, went to the bathroom and then went to floor in pain. Reportedly got put on Bactrim for UTI without evaluation of urine by OBGYN in [place] for suprapubic pain. Denies fever. Past Medical History / Immunizations Past Medical History: Diagnosis Date Anxiety Bipolar depression Self mutilating behavior Tetanus received in last 5 years: Unknown Childhood immunizations: Up-to-date Past Surgical History Past Surgical History: Procedure Laterality Date FOOT/TOES SURGERY PROC UNLISTED Allergies No Known Allergies Social History Substance & Sexual Activity No substance use or sexual activity history on file. Review of Systems Review of Systems Constitutional: Negative for chills, fatigue and fever. HENT: Negative for sore throat. Eyes: Negative for pain. Respiratory: Negative for cough, chest tightness, shortness of breath and stridor. Breasts: Negative for pain. Cardiovascular: Negative for chest pain and palpitations. Gastrointestinal: Negative for abdominal pain, constipation and diarrhea. Genitourinary: Positive for dysuria and pelvic pain. Negative for bladder incontinence, vaginal bleeding, vaginal discharge and difficulty urinating. Musculoskeletal: Negative for back pain. Skin: Negative for color change and wound. Neurological: Negative for dizziness, seizures, weakness, light-headedness and headaches. Physical Exam BP 106/76 | Pulse 76 | Temp 36.9 C (98.4 F) (Oral) | Resp 18 | Wt 110.2 kg (243 lb) | SpO2 95% Physical Exam Vitals signs and nursing note reviewed. Constitutional: General: She is not in acute distress. Appearance: She is well-developed. She is not diaphoretic. HENT: Head: Normocephalic and atraumatic. Right Ear: External ear normal. Left Ear: External ear normal. Nose: Nose normal. Eyes: General: No scleral icterus. Conjunctiva/sclera: Conjunctivae normal. Pupils: Pupils are equal, round, and reactive to light. Neck: Musculoskeletal: Normal range of motion and neck supple. Cardiovascular: Rate and Rhythm: Normal rate and regular rhythm. Heart sounds: Normal heart sounds. Pulmonary: Effort: Pulmonary effort is normal. Breath sounds: Normal breath sounds. Abdominal: General: Bowel sounds are normal. Palpations: Abdomen is soft. Tenderness: There is no abdominal tenderness. Musculoskeletal: Normal range of motion. Skin: General: Skin is warm and dry. Neurological: Mental Status: She is alert and oriented to person, place, and time. Cranial Nerves: No cranial nerve deficit. Deep Tendon Reflexes: Reflexes are normal and symmetric. Psychiatric: Behavior: Behavior normal. Thought Content: Thought content normal. Labs Recent Results (from the past 24 hour(s)) URINALYSIS Collection Time: 07/18/20 2:45 AM Result Value Ref Range APPEARANCE Hazy (A) Clear COLOR Yellow Yellow PH 6.0 4.8 - 8.0 SP GRAVITY 1.026 1.003 - 1.030 GLU U QUAL Normal Normal BLOOD 1+ (A) Negative KETONES 5 mg/dL (A) Negative PROTEIN Negative Negative UROBILIN 2.0 mg/dL (A) Normal BILIRUBIN Negative Negative NITRITE Negative Negative LEUK GARY 25/uL (A) Negative RBC/HPF 5 (H) 0 - 3 HPF WBC/HPF 43 (H) 0 - 5 HPF BACTERIA Few (A) Negative MUCOUS Slight (A) Negative LPF SQ EPITH 7 HPF Type and Screen - ONCE Routine Collection Time: 07/18/20 3:38 AM Result Value Ref Range ABO & RH A Positive IAT Negative CBC WITH DIFF Collection Time: 07/18/20 3:39 AM Result Value Ref Range WBC 8.89 4.30 - 11.10 10*3/L RBC 4.06 3.93 - 5.25 10*6/L HGB 11.4 (L) 11.6 - 15.0 g/dL HCT 34.9 (L) 35.7 - 45.2 % MCV 86.0 80.6 - 95.5 fL MCH 28.1 25.9 - 32.8 pg MCHC 32.7 31.6 - 35.1 g/dL RDW-SD 45.3 39.0 - 49.9 fL RDW-CV 14.4 12.0 - 15.5 % PLT 288 166 - 358 10*3/L MPV 10.3 9.5 - 12.9 fL NRBC/100 WBC 0.0 0.0 - 10.0 /100 WBCs NRBC x10^3 <0.01 10*3/L GRAN MAT (NEUT) % 57.3 % IMM GRAN % 0.60 % LYMPH % 31.5 % MONO % 7.8 % EOS % 2.5 % BASO % 0.3 % GRAN MAT x10^3(ANC) 5.10 1.88 - 7.09 10*3/uL IMM GRAN x10^3 0.05 0.00 - 0.06 10*3/uL LYMPH x10^3 2.80 1.32 - 3.29 10*3/uL MONO x10^3 0.69 0.33 - 0.92 10*3/uL EOS x10^3 0.22 0.03 - 0.39 10*3/uL BASO x10^3 0.03 0.01 - 0.07 10*3/uL COMP. METABOLIC PANEL (75191) Collection Time: 07/18/20 3:39 AM Result Value Ref Range NA 137 135 - 145 mmol/L K 3.9 3.5 - 5.0 mmol/L CL 106 98 - 108 mmol/L CO2 TOTAL 24 23 - 31 mmol/L AGAP 7 2 - 16 BUN 9 7 - 23 mg/dL GLUCOSE 81 70 - 110 mg/dL CREATININE 0.49 (L) 0.50 - 1.04 mg/dL TOTAL BILI 0.4 0.1 - 1.1 mg/dL CALCIUM 9.3 8.6 - 10.6 mg/dL T PROTEIN 7.0 6.3 - 8.2 g/dL ALBUMIN 3.8 3.5 - 5.0 g/dL ALK PHOS 71 34 - 122 U/L ALTv 17 5 - 35 U/L AST(SGOT) 19 13 - 40 U/L eGFR Calculation (Non-) 157.9 mL/min/1.73m2 eGFR Calculation () 191.4 mL/min/1.73m2 TOTAL BETA HCG ASSAY Collection Time: 07/18/20 3:39 AM Result Value Ref Range BETA HCG 51,124.00 Non- female and male patients: <5 mIU/mL Imaging No results found for this visit on 07/18/20. Orders and Treatments Orders Placed This Encounter Procedures US FIRST TRIMESTER LESS THAN 14 WEEKS WITH TRANSVAGINAL URINALYSIS URINE CULTURE CBC WITH DIFF COMP. METABOLIC PANEL (56368) Type and Screen - ONCE Routine TOTAL BETA HCG ASSAY Orders Placed This Encounter Medications phenazopyridine 200 mg tablet Procedures See ED Procedure Note Notes & MDM Patient was evaluated for an emergency medical condition related to Suprapubic Pain (12 weeks preg) . Differential diagnoses considered by presenting complaints but not limited to: UTI, Bladder spasm, threatened AB, and others. ED Course as of Jul 18 459 Mon Jul 18, 2020 0316 BACTERIA(!): Few [PS] 0316 WBC/HPF(!): 43 [PS] 0316 LEUK GARY(!): 25/uL [PS] ED Course User Index [PS] Ino Whitehead DO Labs:were ordered, and resulted, any relevant abnormalities were considered. Imaging:Ordered, and resulted, any relevant abnormalities were considered. IV fluids: not indicated Procedures:were not performed. EKG: An EKG was not performed. Rhythm Strip Interpretation: 76 Normal Sinus Rhythm Pulse Oximetry room air Assessment: Kianna Preston is a 24 year old female with UTI. Likely bladder spasm. Home with pyridium. IUP confirmed. Home with OB follow-up. Return precautions given if symptoms worsen as documented in the discharge instructions. History, physical exam findings, results of visit, differential diagnosis, medication regimens and plan of future care have been considered. Additional MDM may be found in the ED course. Differential diagnosis considered and final disposition made based on information gathered during evaluation and may not be completely ruled out or specifically listed. Vital signs were rechecked before final disposition and determined to be expected for patient's clinical condition.. Diagnosis ICD-10-CM ICD-9-CM 1. Suprapubic pain R10.2 789.09 2. Urinary tract infection in mother during first trimester of O23.41 646.63 599.0 Disposition & Follow Up ED Disposition ED Disposition Condition Comment Disch - Home Stable Patient's Medications START taking these medications PHENAZOPYRIDINE 200 MG TABLET Take 1 tablet by mouth 3 (three) times daily. CONTINUE taking these medications which have NOT CHANGED No medications on file START taking Modified Medications as Prescribed No medications on file STOP taking these medications No medications on file Contact information for follow-up ADC-Emergency Department Specialty: Emergency Medicine [address] [facility] [address] Instructions: If symptoms worsen as documented in the discharge Wolfgang Hansen Specialty: UNKNOWN PHYSICIAN SPECIALTY Relationship: PCP - Insurance HMO Wolfgang Hansen MD [address] [facility] [address] [facility] [phone] Ino Whitehead DO 07/18/2020 3:25 AM ACTIVE COVID-19 PANDEMIC. documented in this encounter Miscellaneous Notes ED Nurse Note - Zackery Franks RN - 07/18/2020 5:11 AM CDTPt given printed and verbal discharge instructions regarding UTI, encouraged hydration, continue taking prescribed antibiotic for known UTI, discussed US findings with patient and addressed all concerns. prescription provided and discussed with patient/family Discussed Tylenol for pain. Pt encouraged to follow up with PCP/OBGYN Advised to seek medical attention for new/prolonged/worsening of symptoms. No adverse reaction to meds given in ER noted upon discharge. PIV d'cd, dressing to site, catheter in tact. Pt verbalized understanding of instructions, awake alert oriented, resp reg unlabored, skin w/d, color appropriate for race, moves all ext well, pt leaving amb with steady gait, in no apparent distress, D Nurse Note - Scarlett Wells RN - 07/18/2020 5:08 AM CDTPatient returned to room from US. ED Nurse Note - Scarlett Wells RN - 07/18/2020 4:33 AM CDTPatient to ultrasound D Nurse Note - Scarlett Wells RN - 07/18/2020 3:30 AM CDTUltrasound called out at 0330 D Nurse Note - Shaye Spears RN - 07/18/2020 2:57 AM CDTNurse Report Report given to NYASIA Pantoja. Chief complaint, assessment findings and orders reviewed. Plan of care discussed with both nurses. Shaye Spears RN documented in this encounter Plan of Treatment Name Type Priority Associated Diagnoses Date/Ti me URINE CULTURE LAB STAT Suprapubic pain 07/18/2020 3:39 AM CDT US FIRST IMAGING STAT Suprapubic pain 2019 5:02 AM TRIMESTER LESS THAN 14 CDT WEEKS WITH TRANSVAGINAL Name Type Priority Associated Diagnoses Order S chedule URINE CULTURE LAB Routine Suprapubic pain ONCE for 1 Occurrences starting 07/18/2020 unti l 07/18/2020 Health Maintenance Due Date Last Done Comments VARICELLA VACCINES (1 of 2 - 2-dose 1998 childhood series) MENINGOCOCCAL B VACCINES (1 of 2 - 12/04/2007 Risk Bexsero 2-dose series) HPV VACCINES (1 - 2-dose series) 2008 Depression Screening 2009 CHLAMYDIA SCREENING 2013 DTaP,Tdap,and Td Vaccines (1 - 2016 Tdap) PAP SMEAR 2018 INFLUENZA VACCINE (#1) 2020 MENINGOCOCCAL VACCINE Aged Out No longer eligible based on patient's age to complete this topic PNEUMOCOCCAL 0-64 YEARS COMBINED Aged Out No longer eligible based on SERIES patient's age to complete this topic documented as of this encounter Procedures Procedure Name Priority Date/Time Associated Diagnosis Comme nts US FIRST STAT 07/18/2020 5:02 AM Suprapubic pain TRIMESTER LESS THAN 14 CDT WEEKS WITH TRANSVAGINAL Procedure Note - [facility], Radia nt Results Inft User - 07/18/2020 5:14 AM CDT US FIRST TRIMESTER LESS THAN 14 WEEKS WITH TRANSVAGINAL HISTORY: 24 years-old; Femal e; pelvic pain + preg COMPARISON: Pelvic ultrasoun d 04/17/2019 TECHNIQUE: The transvaginal exam was explained to the patient prior to performing and a senior private client advisor w as present in the room. FINDINGS: LMP: 04/26/2020 Beta-hC,124 mIU/mL on 1 A live intrauterine pregnanc y is noted with a crown rump length 4.2 cm measured transvaginally and corresponding to a gestational age 11 weeks 1 days. heart rate is wi thin normal limits (169 bpm). Small subchorionic hemorrhage is s een measuring 1.9 x 0.2 cm. Both ovaries are normal in s ize and echogenicity. The right ovary measures 4.5 x 1.8 x 2.9 cm (12.5 mL) . The left ovary measures 4.0 x 1.5 x 2.1 cm (6.7 mL). The right ovary co ntains a cystic-like structure with echogenic material measuring 1.8 cm co nsistent with a hemorrhagic corpus luteal cyst. A small volume of posterior cul-de-sac free fluid is noted. IMPRESSION Live intrauterine with gestational age 11 weeks 1 days. Small subchorionic hemorrhag e measuring 1.9 x 0.2 cm Preliminary Report Dictated by Resident: Milena Rowley CBC WITH DIFF STAT 07/18/2020 3:39 AM Suprapubic pain Resu lts for this CDT procedure are i n the results section. TOTAL BETA HCG ASSAY STAT 07/18/2020 3:39 AM Suprapubic pa in Results for this CDT procedure are i n the results section. COMP. METABOLIC PANEL STAT 07/18/2020 3:39 AM Suprapubic p ain Results for this (63552) CDT procedure are i n the results section. HB ABO GROUPING Routine 07/18/2020 3:38 AM Suprapubic pain Re sults for this CDT procedure are i n the results section. URINALYSIS STAT 07/18/2020 2:45 AM Suprapubic pain Resul ts for this CDT procedure are i n the results section. NOTICE OF PRIVACY Routine 07/18/2020 2:18 AM PRACTICES CDT CONSENT/REFUSAL FOR Routine 07/18/2020 2:18 AM DIAGNOSIS AND CDT TREATMENT documented in this encounter Results TOTAL BETA HCG ASSAY (07/18/2020 3:39 AM CDT) [facility] BETA HCG 51,124.00 Non- female [facility] and male patients: HOSPITAL LABORATORY <5 mIU/mL Specimen Blood - VENOUS Narrative Performed At [facility] LABORATORY Gestational Age Range (mIU/mL) 1-10 Weeks 4 [id number] 11-15 Weeks 76036-970247 16-22 Weeks 7480-182302 23-40 Weeks 1531-097574 Biotin has been reported to cause a negative bias, interpret results relative to patient's use of biotin. Performing Organization Address City/State/Zipcode Phone Number [facility] CLIA: [id number] [place] [address] LABORATORY [address] [facility] COMP. METABOLIC PANEL (12361) (07/18/2020 3:39 AM CDT) NA 137 135 - 145 [facility] mmol/L [facility] K 3.9 3.5 - 5.0 [facility] mmol/L [facility] CL 106 98 - 108 mmol/L [facility] LAB[facility] CO2 TOTAL 24 23 - 31 mmol/L [facility] AGAP 7 2 - 16 [facility] LAB[facility] BUN 9 7 - 23 mg/dL [facility] LAB[facility]ORY GLUCOSE 81 70 - 110 mg/dL [facility] LAB[facility] CREATININE 0.49 (L) 0.50 - 1.04 [facility] mg/dL [facility] TOTAL BILI 0.4 0.1 - 1.1 mg/dL [facility] LABORATORY CALCIUM 9.3 8.6 - 10.6 [facility] mg/dL [facility] T PROTEIN 7.0 6.3 - 8.2 g/dL [facility] LABORATORY ALBUMIN 3.8 3.5 - 5.0 g/dL [facility] LABORATORY ALK PHOS 71 34 - 122 U/L [facility] LABOR[facility] ALTv 17 5 - 35 U/L [facility] LABOR[facility] AST(SGOT) 19 13 - 40 U/L [facility] LABORATORY eGFR Calculation 157.9 mL/min/1.73m2 [facility] ([facility] LABORATORY [place]) eGFR Calculation 191.4 mL/min/1.73m2 [facility] () [facility] LAB[facility] Specimen Blood - VENOUS Narrative Performed At Association of Glomerular Filtration Rate (GFR) [facility] LABORATORY and Staging of Kidney Disease* + + +- + | GFR (mL/min/1.73 m2) | With Kidney Damage | Without Kidney Damage + + +- + | >90 | Stage one | Normal + + +- + | 60-89 | Stage two | Decreased GFR + + +- + | 30-59 | Stage three | Stage three + + +- + | 15-29 | Stage four | Stage four + + +- + | <15 (or dialysis) | Stage five | Stage five + + +- + *Each stage assumes the associated GFR level has been in effect for at least three months. Stages 1 to 5, with or without kidney disease, indicate chronic kidney disease. Notes: Determination of stages one and two (with eGFR >59mL/min/1.73 m2) requires estimation of kidney damage for at least three months as defined by structural or functional abnormalities of the kidney, manifested by either: Pathological abnormalities or Markers of kidney damage (including abnormalities in the composition of the blood or urine or abnormalities in imaging tests). Performing Organization Address City/State/Zipcode Phone Number [facility] CLIA: [id number] [place] [address] CBC WITH DIFF (07/18/2020 3:39 AM CDT) Pathologist Sig nature WBC 8.89 4.30 - 11.10 [facility] 10*3/L [facility] RBC 4.06 3.93 - 5.25 [facility] 10*6/L [facility] HGB 11.4 (L) 11.6 - 15.0 [facility] g/dL [facility] HCT 34.9 (L) 35.7 - 45.2 % [facility] LABORATORY MCV 86.0 80.6 - 95.5 fL [facility] LABORATORY MCH 28.1 25.9 - 32.8 pg [facility] LABORATORY MCHC 32.7 31.6 - 35.1 [facility] g/dL [facility] RDW-SD 45.3 39.0 - 49.9 fL [facility] LABORATORY RDW-CV 14.4 12.0 - 15.5 % [facility] LABORATORY PLT 288 166 - 358 [facility] 10*3/L [facility] MPV 10.3 9.5 - 12.9 fL [facility] LABORATORY NRBC/100 WBC 0.0 0.0 - 10.0 /100 [facility] WBCs [facility] LAB[facility] NRBC x10^3 <0.01 10*3/L [facility] LABORATORY GRAN MAT (NEUT) % 57.3 % [facility] LABORATORY IMM GRAN % 0.60 % [facility] LABORATORY LYMPH % 31.5 % [facility] LABORATORY MONO % 7.8 % [facility] LAB[facility]AT[facility] EOS % 2.5 % [facility] LABORATORY BASO % 0.3 % [facility] LABORATORY GRAN MAT x10^3(ANC) 5.10 1.88 - 7.09 [facility] 10*3/uL HOSPITAL LABORATORY IMM GRAN x10^3 0.05 0.00 - 0.06 [facility] 10*3/uL HOSPITAL LABORATORY LYMPH x10^3 2.80 1.32 - 3.29 [facility] 10*3/uL HOSPITAL LABORATORY MONO x10^3 0.69 0.33 - 0.92 [facility] 10*3/uL HOSPITAL LABORATORY EOS x10^3 0.22 0.03 - 0.39 [facility] 10*3/uL HOSPITAL LABORATORY BASO x10^3 0.03 0.01 - 0.07 [facility] 10*3/uL HOSPITAL LABORATORY Specimen Blood - VENOUS Performing Organization Address [facility]/Zipcode Phone Number [facility] CLIA: [id number] [place] [address] [place] [address] Type and Screen - ONCE Routine (07/18/2020 3:38 AM CDT) Pathologist Sig nature ABO & RH A Positive LAB Comment: Performed at [facility] Laboratory Services [facility] Blood Bank [address] [place], [place] [id number] Toll Free: [phone] CLIA No. [id number] IAT Negative LAB Comment: Performed at [facility] Laboratory [facility] [address] [place], [place] [id number] Toll Free: [phone] CLIA No. [id number] Specimen Blood Performing Organization Address [facility]/Zipcode Phone Number BLD LAB URINALYSIS (07/18/2020 2:45 AM CDT) Pathologist Sig nature APPEARANCE Hazy (A) Clear [facility] [facility] COLOR Yellow Yellow [facility] PH 6.0 4.8 - 8.0 [facility] SP GRAVITY 1.026 1.003 - 1.030 [facility] GLU U QUAL Normal Normal [facility] BLOOD 1+ (A) Negative [facility] KETONES 5 mg/dL (A) Negative [facility] PROTEIN Negative Negative [facility] UROBILIN 2.0 mg/dL (A) Normal [facility] BILIRUBIN Negative Negative [facility] NITRITE Negative Negative [facility] LEUK GARY 25/uL (A) Negative [facility] RBC/HPF 5 (H) 0 - 3 HPF [facility] WBC/HPF 43 (H) 0 - 5 HPF [facility] BACTERIA Few (A) Negative [facility] MUCOUS Slight (A) Negative LPF [facility] SQ EPITH 7 HPF [facility] Specimen Urine - URINE, CLEAN CATCH Performing Organization Address City/State/Zipcode Phone Number [facility] CLIA: [id number] [place] [address] documented in this encounter Visit Diagnoses Diagnosis Subchorionic hematoma in first trimester , single or unspecified fetus - Primary Suprapubic pain Abdominal pain, other specified site Urinary tract infection in mother during first trimester of documented in this encounter Insurance Payer Benefit Plan / Subscriber ID Effective Phone Address T ype Group Dates [facility] [id number] 2020-Pres [address] Medic aid HEALTH CHOICE - HEALTH CHOICE ent [id number] MANAGED MEDICAID [place], [place] [id number] documented as of this encounter Advance Directives Name Relationship Healthcare Agent Communication Relationship Irvin Frost Spouse Health Care Agent [id number]"
[2020-08-02] MEDS ORDERED: ACETAMINOPHEN 500 MG TAB ONE (23:24)
[2020-08-02] MEDS ORDERED: NA CHLORIDE 0.9% 500 ML ONE (23:24)
[2020-08-02 23:41] LABS: Absolute Lymphocytes (CBC) 2.8 K/uL (0.7-4.9); Basophils % 0.3 % (0-1.3); Hematocrit 34.4 % (36.0-45.0); Lymphocytes % 28.3 % (15.3-44.8); MPV 9.2 fL (7.6-11.3); RBC Red Blood Cell Count 3.96 M/uL (3.86-4.86)
[2020-08-03 00:11] LABS: Potassium 3.6 mmol/L (3.5-5.1)
[2020-08-03 00:27] LABS: Urine Blood TRACE (NEG); Urine Glucose NEGATIVE (NEG); Urine Protein NEGATIVE (NEG); Urine pH 6.5 (5.0-7.0)
[2020-08-03 00:48] LABS: Urine Bacteria <20 /HPF (<20); Urine Culture Reflex Order NOT NEEDED; Urine RBC <5 /HPF (NONE SEEN)
--- NOTE | 2020-08-03 00:57 | EDPHYS ---
Physician Documentation [facility] Name: Kianna Preston Age: 24 yrs Sex: Female : 1995 Arrival Date: 08/02/2020 Time: 19:56 Bed 6 Private MD: ED Physician Antonio Knutson HPI: 08/02 22:55 This 24 yrs old Female presents to ER via Ambulatory with complaints of cp Vaginal Bleeding - +Preg >12 wks. 22:55 The patient presents with vaginal bleeding that is light. Onset: The symptoms/episode cp began/occurred today. 22:55 Associated signs and symptoms: Pertinent positives: lower abdomen cramps. 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 - Social history:: Smoking status: Patient denies any tobacco usage or history of. ROS: 23:05 Constitutional: Negative for body aches, chills, fever, poor PO intake. cp 23:05 Eyes: Negative for injury, pain, redness, and discharge. cp 23:05 ENT: Negative for ear pain, sore throat, difficulty swallowing, difficulty handling secretions. 23:05 Cardiovascular: Negative for chest pain. 23:05 Respiratory: Negative for cough, shortness of breath, wheezing. 23:05 Abdomen/GI: Positive for abdominal pain, of the right lower quadrant and left lower quadrant. 23:05 Back: Negative for radiated pain. 23:05 : Positive for vaginal bleeding, Negative for urinary symptoms. 23:05 Neuro: Positive for dizziness, Negative for altered mental status, weakness. 23:05 All other systems are negative. Exam: 23:10 Head/Face: Normocephalic, atraumatic. cp 23:10 Constitutional: The patient appears in no acute distress, alert, awake, non-toxic, well developed, well nourished. 23:10 Eyes: Periorbital structures: appear normal, Conjunctiva: normal, no exudate, no injection, Lids and lashes: appear normal, bilaterally. 23:10 ENT: External ear(s): are unremarkable, Nose: is normal, Mouth: Lips: moist, Oral mucosa: moist, Posterior pharynx: Airway: no evidence of obstruction, patent. 23:10 Neck: ROM/movement: is normal, is supple, without pain, no range of motions limitations. 23:10 Chest/axilla: Inspection: normal, Palpation: is normal, no crepitus, no tenderness. 23:10 Cardiovascular: Rate: normal, Rhythm: regular. 23:10 Respiratory: the patient does not display signs of respiratory distress, Respirations: normal, no use of accessory muscles, no retractions, labored breathing, is not present, Breath sounds: are clear throughout, no decreased breath sounds. 23:10 Abdomen/GI: Inspection: abdomen appears normal, Bowel sounds: active, all quadrants, Palpation: soft, in all quadrants, mild abdominal tenderness, in the right lower quadrant and left lower quadrant, rebound tenderness, is not appreciated, involuntary guarding, is not appreciated. 23:10 Back: CVA tenderness, is absent. Vital Signs: 20:08 BP 116 / 80; Pulse 94; Resp 16 S; Temp 97.8(TE); Pulse Ox 99% on R/A; Weight 108.86 kg ca1 (R); Height 5 ft. 8 in. (172.72 cm) (R); Pain 0/10; 23:10 BP 111 / 62; Pulse 80; Resp 17; Pulse Ox 98% ; rr5 08/03 00:30 BP 108 / 71; Pulse 90; Resp 17; Pulse Ox 99% ; rr5 01:12 BP 114 / 67; Pulse 85; Resp 16; Pulse Ox 99% ; rr5 08/02 20:08 Body Mass Index 36.49 (108.86 kg, 172.72 cm) ca1 MDM: 08/02 22:49 Patient medically screened. cp 23:15 Differential diagnosis: ectopic , molar preganancy, ovarian cyst, pelvic cp inflammatory disease, ruptured ectopic , urinary tract infection, vaginosis. 08/03 00:55 Data reviewed: vital signs, nurses notes, lab test result(s), radiologic studies, cp ultrasound, I have discussed the patient's presentation/case with the attending Emergency Department Physician; and as a result, I will discharge patient. 00:55 Counseling: I had a detailed discussion with the patient and/or guardian regarding: the cp historical points, exam findings, and any diagnostic results supporting the discharge/admit diagnosis, lab results, radiology results, the need for outpatient follow up, an OB/Gyne specialist. 00:55 ED course: VSS. US results show single viable IUP. 08/02 22:57 Order name: Quantitative Hcg; Complete Time: 00:31 08/03 00:31 Interpretation: Abnormal: HCGQ 49095. 08/02 22:57 Order name: Abo/rh Typing 08/02 22:57 Order name: Basic Metabolic Panel; Complete Time: 00:31 08/03 00:32 Interpretation: Normal except: CL 108; GFR 85. 08/02 22:57 Order name: CBC with Diff; Complete Time: 00:31 08/03 00:32 Interpretation: Normal except: HGB 11.3; HCT 34.4; RDW 15.5. 08/02 22:57 Order name: Urine Microscopic Only; Complete Time: 00:55 08/03 00:55 Interpretation: Reviewed. 08/03 00:22 Order name: Urine Dipstick--Ancillary (enter results); Complete Time: 00:31 tt3 08/02 22:22 Order name: US OB Limited rn 08/02 22:57 Order name: Urine Test (obtain specimen); Complete Time: 00:59 cp 08/02 22:57 Order name: IV Saline Lock; Complete Time: 23:18 cp 08/02 22:57 Order name: Labs collected and sent; Complete Time: 23:18 cp 08/02 22:57 Order name: NPO; Complete Time: 23:18 cp Administered Medications: 08/02 22:58 CANCELLED (Physician Discretion): Bentyl 20 mg PO once cp 23:17 Drug: NS 0.9% 500 ml Route: IV; Rate: bolus; Site: right antecubital; rr5 08/03 00:00 Follow up: Response: No adverse reaction; IV Status: Completed infusion; IV Intake: rr5 500ml 08/02 23:17 Drug: Tylenol 1000 mg Route: PO; rr5 08/03 00:15 Follow up: Response: No adverse reaction rr5 Disposition: 01:51 Co-signature as Attending Physician, Antonio Knutson MD. rn Disposition: 08/03/20 00:56 Discharged to Home. Impression: Threatened . - Condition is Stable. - Discharge Instructions: Threatened Miscarriage, Vaginal Bleeding During , First Trimester, Pelvic Rest. - Medication Reconciliation Form, Thank You Letter, Antibiotic Education, Prescription Opioid Use form. - Follow up: Private Physician; When: 1 week; Reason: Recheck today's complaints. - Problem is new. - Symptoms have improved. Signatures: Dispatcher [employer] EDMS Antonio Knutson MD MD rn Vimal Kramer PA PA cp Roque, Raymond RN RN rr5 Britt Medeiros RN RN ca1 Corrections: (The following items were deleted from the chart) 08/02 22:58 22:57 Bentyl 20 mg PO once ordered. cp cp 08/03 01:14 00:56 08/03/2020 00:56 Discharged to Home. Impression: Threatened . Condition rr5 is Stable. Forms are Medication Reconciliation Form, Thank You Letter, Antibiotic Education, Prescription Opioid Use. Follow up: Private Physician; When: 1 week; Reason: Recheck today's complaints. Problem is new. Symptoms have improved. cp
--- NOTE | 2020-08-03 00:57 | ER ---
Nurse's Notes [facility] Name: Kianna Preston Age: 24 yrs Sex: Female : 1995 Arrival Date: 08/02/2020 Time: 19:56 Bed 6 Private MD: Diagnosis: Threatened Presentation: 08/02 20:08 Chief complaint: Patient states: 14 week . Vaginal bleeding started at 1850 ca1 today. Reports lower abdominal cramps and dizziness. Coronavirus screen: Client denies travel out of the [place] in the last 14 days. At this time, the client does not indicate any symptoms associated with coronavirus-19. Ebola Screen: Patient negative for fever greater than or equal to 101.5 degrees Fahrenheit, and additional compatible Ebola Virus Disease symptoms Patient denies exposure to infectious person. Patient denies travel to an Ebola-affected area in the 21 days before illness onset. No symptoms or risks identified at this time. Initial Sepsis Screen: Does the patient meet any 2 criteria? No. Patient's initial sepsis screen is negative. Does the patient have a suspected source of infection? No. Patient's initial sepsis screen is negative. Risk Assessment: Do you want to hurt yourself or someone else? Patient reports no desire to harm self or others. Onset of symptoms was August 02, 2020. 20:08 Method Of Arrival: Ambulatory ca1 20:08 Acuity: STEPHANY 3 ca1 Triage Assessment: 22:00 General: Appears in no apparent distress. uncomfortable, Behavior is calm, cooperative, rr5 appropriate for age. 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 - Social history:: Smoking status: Patient denies any tobacco usage or history of. Screenin:18 Abuse screen: Denies threats or abuse. Denies injuries from another. Nutritional rr5 screening: No deficits noted. Tuberculosis screening: No symptoms or risk factors identified. Fall Risk IV access (20 points). Total Narayan Fall Scale indicates No Risk (0-24 pts). Assessment: 23:00 General: Appears in no apparent distress. uncomfortable, Behavior is calm, cooperative, rr5 appropriate for age. 23:00 Pain: Complains of pain in abdomen. Neuro: Level of Consciousness is awake, alert, rr5 obeys commands, Oriented to person, place, time. Cardiovascular: Capillary refill < 3 seconds Patient's skin is warm and dry. Respiratory: Airway is patent Respiratory effort is even, unlabored, Respiratory pattern is regular, symmetrical. GI: No signs and/or symptoms were reported involving the gastrointestinal system. : Urine is clear, Reports vaginal bleeding that is. EENT: No signs and/or symptoms were reported regarding the EENT system. Derm: Skin is intact, is healthy with good turgor, Skin temperature is warm. Musculoskeletal: Capillary refill < 3 seconds. 08/03 00:00 Reassessment: Patient appears in no apparent distress at this time. Patient is alert, rr5 oriented x 3, equal unlabored respirations, skin warm/dry/pink. awaiting for results. 01:13 Reassessment: Patient appears in no apparent distress at this time. Patient is alert, rr5 oriented x 3, equal unlabored respirations, skin warm/dry/pink. discharge instruction given and explained without complaints made. Vital Signs: 08/02 20:08 BP 116 / 80; Pulse 94; Resp 16 S; Temp 97.8(TE); Pulse Ox 99% on R/A; Weight 108.86 kg ca1 (R); Height 5 ft. 8 in. (172.72 cm) (R); Pain 0/10; 23:10 BP 111 / 62; Pulse 80; Resp 17; Pulse Ox 98% ; rr5 08/03 00:30 BP 108 / 71; Pulse 90; Resp 17; Pulse Ox 99% ; rr5 01:12 BP 114 / 67; Pulse 85; Resp 16; Pulse Ox 99% ; rr5 08/02 20:08 Body Mass Index 36.49 (108.86 kg, 172.72 cm) ca1 ED Course: 08/02 19:56 Patient arrived in ED. am2 20:10 Triage completed. ca1 22:45 Vimal Kramer PA is PHCP. cp 22:45 Antonio Knutson MD is Attending Physician. cp 22:50 US OB Limited In Process Unspecified. EDMS 22:58 Jordon Matthews, RN is Primary Nurse. rr5 23:00 Patient has correct armband on for positive identification. Bed in low position. Call rr5 light in reach. Pulse ox on. NIBP on. 23:00 Arm band placed on right wrist. rr5 23:12 Inserted saline lock: 20 gauge in right antecubital area, using aseptic technique. ds4 Blood collected. 08/03 01:13 No provider procedures requiring assistance completed. IV discontinued, intact, rr5 bleeding controlled, No redness/swelling at site. Pressure dressing applied. Administered Medications: 08/02 22:58 CANCELLED (Physician Discretion): Bentyl 20 mg PO once cp 23:17 Drug: NS 0.9% 500 ml Route: IV; Rate: bolus; Site: right antecubital; rr5 08/03 00:00 Follow up: Response: No adverse reaction; IV Status: Completed infusion; IV Intake: rr5 500ml 08/02 23:17 Drug: Tylenol 1000 mg Route: PO; rr5 08/03 00:15 Follow up: Response: No adverse reaction rr5 Intake: 00:00 IV: 500ml; Total: 500ml. rr5 Outcome: 00:56 Discharge ordered by MD. cp 01:13 Discharged to home ambulatory, with family. rr5 01:13 Condition: stable 01:13 Discharge instructions given to patient, Instructed on discharge instructions, follow up and referral plans. Demonstrated understanding of instructions, follow-up care. 01:14 Patient left the ED. rr5 Signatures: Dispatcher [employer] [facility] Pepito Martinez ds4 Vimal Kramer PA PA cp Moreno, Amanda am2 Jordon Matthews, RN RN rr5 Britt Medeiros RN RN ca1
[2020-08-03 08:40] VITALS: TEMP 97.8; O2SAT 99
[2020-08-03 08:43] VITALS: BP 114/67
--- NOTE | 2020-08-03 08:53 | RAD REPORT ---
EXAM DESCRIPTION: US - OB Limited - 08/02/2020 10:50 pm CLINICAL HISTORY: VAGINAL BLEEDING age. COMPARISON: Transvaginal OB dated 05/31/2020 FINDINGS: A limited examination was requested by the emergency room. A single live fetus is seen within the uterus with estimated gestational age of 13 weeks 5 days. Yesy mated date of delivery is 02/02/2021. heart tones normal 160 BPM. Mild amnion -chorion separati on is seen which is considered a normal finding at this gestational age. This can be reassessed on miranda bsequent follow-up studies. Placental mass is posterior without evidence of abruption.
== END 2020-08-03 01:14 | disposition home or self-care (01) ==
LOC: ER 19:55
DX: O20.0 Threatened abortion (principal); O99.341 Other mental disorders complicating pregnancy, first trimester; F31.9 Bipolar disorder, unspecified; F41.9 Anxiety disorder, unspecified; Z3A.13 13 weeks gestation of pregnancy
CPT/HCPCS: 85025; 80048; 36415; 86900; 86901; 84702; 76815; 96360; 99284; J7040; 81003; 81015

== ENCOUNTER 2020-10-05 18:36 | Emergency (ER) | payer OTHER ==
--- OUTSIDE RECORDS SUMMARY | 2020-10-05 18:38 | XMS REPORT | Continuity of Care Document ---
:1995 Author Organization [facility] t Address [address] [place] [address] Care Team Providers Name Role Phone [place] [...] Facility Department ID 2020-07-18 2020-07-18 Emergency Singer [facility] [id number] 02:20:00 05:24:00 Ino Sy [id number] [place] [id number] [place] [id number] 2019-04-17 2019-04-17 [facility] Radiology [facility] [id number] 13:12:28 23:59:00 Encounter Kerrie [id number] [place] [id number] [place] [id number] 2019-04-17 2019-04-17 Orders Doctor DEAN [id number] 00:00:00 00:00:00 Only UnassELLI [id number] [place] [facility] [id number] Results This patient has no known results.
[2020-10-05 23:50] LABS: Absolute Lymphocytes (CBC) 2.9 K/uL (0.7-4.9); Basophils % 0.4 % (0-1.3); Hematocrit 31.9 % (36.0-45.0); Lymphocytes % 30.1 % (15.3-44.8); MPV 9.2 fL (7.6-11.3); RBC Red Blood Cell Count 3.63 M/uL (3.86-4.86)
[2020-10-06 00:03] LABS: ALT/SGPT 17 U/L (12-78); AST/SGOT 9 U/L (15-37); Albumin 2.8 g/dL (3.4-5.0); Alkaline Phosphatase 75 U/L (45-117); BUN Blood Urea Nitrogen 9 mg/dL (7-18); Bicarbonate 24 mmol/L (21-32); Bilirubin Direct < 0.1 mg/dL (0-0.2); Bilirubin Total 0.2 mg/dL (0.2-1.0); Glucose Level 117 mg/dL (74-106); Magnesium 2.1 mg/dL (1.8-2.4); NT PRO-BNP 20 pg/mL (<125); Potassium 3.6 mmol/L (3.5-5.1); Protein, Total 7.2 g/dL (6.4-8.2); Sodium Level 139 mmol/L (136-145); Troponin (Emerg Dept Use Only) < 0.02 ng/mL (0.0-0.045)
--- NOTE | 2020-10-06 00:05 | ER ---
Nurse's Notes [facility] Name: Kianna Preston Age: 24 yrs Sex: Female : 1995 Arrival Date: 10/05/2020 Time: 18:40 Bed 16 Private MD: Diagnosis: Chest pain, unspecified; related conditions, unspecified, second trimester;Type 2 diabetes mellitus Presentation: 10/05 19:24 Chief complaint: Dizziness and substernal chest pressure since 1300. Pt reports feeling hb a popping sensation before the pain began. Pt is 23 weeks , was cleared by L\T\D before coming to ED. Coronavirus screen: At this time, the client does not indicate any symptoms associated with coronavirus-19. Ebola Screen: No symptoms or risks identified at this time. Initial Sepsis Screen: Does the patient meet any 2 criteria? No. Patient's initial sepsis screen is negative. Does the patient have a suspected source of infection? No. Patient's initial sepsis screen is negative. Risk Assessment: Do you want to hurt yourself or someone else? Patient reports no desire to harm self or others. Onset of symptoms was October 05, 2020. 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 - Social history:: Smoking status: Patient denies any tobacco usage or history of. - Family history:: not pertinent. Screenin:21 Abuse screen: Denies threats or abuse. Nutritional screening: No deficits noted. ea Tuberculosis screening: No symptoms or risk factors identified. Fall Risk IV access (20 points). Assessment: 22:30 Reassessment: pt aox4. at the bedside. zb 23:00 General: Appears in no apparent distress. uncomfortable, Behavior is anxious. Pain: zb Complains of pain in chest Pain radiates to chest diffusely Pain currently is 6 out of 10 on a pain scale. Pain began today. Neuro: Level of Consciousness is awake, alert, obeys commands, Oriented to person, place, time, situation. Cardiovascular: Patient's skin is warm and dry. Respiratory: Airway is patent Respiratory effort is even, unlabored, Respiratory pattern is regular, symmetrical. GI: Abdomen is round non-distended. : No signs and/or symptoms were reported regarding the genitourinary system. Reports pt is 23 weeks . EENT: No signs and/or symptoms were reported regarding the EENT system. Derm: Skin is intact, is healthy with good turgor, Skin is dry, Skin is normal, Skin temperature is warm. Musculoskeletal: Circulation, motion, and sensation intact. Capillary refill < 3 seconds, in bilateral fingers. Range of motion: intact in all extremities. 10/06 00:20 Reassessment: Patient appears in no apparent distress at this time. Patient is alert, rr5 oriented x 3, equal unlabored respirations, skin warm/dry/pink. ED provider ordered for PO challenge and FHT. 01:00 Reassessment: PO challenge done no nausea or vomiting reported. rr5 01:15 Reassessment: Patient appears in no apparent distress at this time. Patient is alert, rr5 oriented x 3, equal unlabored respirations, skin warm/dry/pink. discharge instruction given and explained without complaints made. Vital Signs: 10/05 19:24 BP 117 / 67; Pulse 81; Resp 16; Temp 98.2; Pulse Ox 100% ; Weight 111.13 kg; Height 5 hb ft. 8 in. (172.72 cm); Pain 3/10; 10/06 01:14 BP 115 / 71; Pulse 68; Resp 17; Temp 98.7; Pulse Ox 100% ; rr5 10/05 19:24 Body Mass Index 37.25 (111.13 kg, 172.72 cm) hb Vitals: 00:32 Heart Tones 160s. rv 01:10 Heart Tones 141 bpm. rr5 ED Course: 10/05 18:40 Patient arrived in ED. as 19:27 Triage completed. hb 19:27 Arm band placed on. hb 22:07 Vimal Hi MD is Attending Physician. shayla 22:15 Roxana Bond RN is Primary Nurse. zb 23:21 Patient has correct armband on for positive identification. Placed in gown. Bed in low ea position. Call light in reach. Side rails up X 1. youth nutritional monitor on. Pulse ox on. NIBP on. 23:21 Inserted saline lock: 20 gauge in right antecubital area, using aseptic technique. ea Blood collected. 23:21 Patient maintains SpO2 saturation greater than 95% on room air. ea 23:34 XRAY Chest (1 view) In Process Unspecified. EDMS 10/06 00:05 Isidoro Bowman MD is Referral Physician. shayla 01:15 No provider procedures requiring assistance completed. IV discontinued, intact, rr5 bleeding controlled, No redness/swelling at site. Pressure dressing applied. Administered Medications: No medications were administered Point of Care Testing: Blood Glucose: 10/05 19:28 Blood Glucose: 109 mg/dL; hb Ranges: Outcome: 10/06 00:05 Discharge ordered by . shayla 01:15 Discharged to home ambulatory, with family. rr5 01:15 Condition: stable 01:15 Discharge instructions given to patient, Instructed on discharge instructions, follow up and referral plans. medication usage, Demonstrated understanding of instructions, follow-up care, medications, Prescriptions given X 1. 01:16 Patient left the ED. rr5 Signatures: Dispatcher [employer] EDCO Vimal Hi MD MD cha Martinez, Amelia as Baxter, Heather, RN Lenka Sharp, RN Ezra Padilla ea, RN Jordon Herrera RN RN rr5 Roxana Bond RN RN zb Corrections: (The following items were deleted from the chart) :10/05 23:00 : No signs and/or symptoms were reported regarding the genitourinary zb system. zb
--- NOTE | 2020-10-06 00:06 | EDPHYS ---
Physician Documentation [facility] Name: Kianna Preston Age: 24 yrs Sex: Female : 1995 Arrival Date: 10/05/2020 Time: 18:40 Bed 16 Private MD: ED Physician Vimal Hi HPI: 10/05 22:59 This 24 yrs old Female presents to ER via Wheelchair with complaints of Chest shayla Pain, Headache, Numbness Of Arm. 22:59 The patient or guardian reports chest pain that is located primarily in the anterior shayla chest wall. The pain radiates to Associated signs and symptoms: The patient has no apparent associated signs or symptoms. The chest pain is described as a heaviness. Duration: The patient or guardian reports a single episode, that is still ongoing, but improving. Modifying factors: The symptoms are alleviated by nothing. the symptoms are aggravated by nothing. Severity of pain: At its worst the pain was mild in the emergency department the pain is unchanged. The patient has not experienced similar symptoms in the past. 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 - Social history:: Smoking status: Patient denies any tobacco usage or history of. - Family history:: not pertinent. ROS: 22:59 Constitutional: Negative for fever, chills, and weight loss, Eyes: Negative for injury, shayla pain, redness, and discharge, ENT: Negative for injury, pain, and discharge, Neck: Negative for injury, pain, and swelling, Respiratory: Negative for shortness of breath, cough, wheezing, and pleuritic chest pain, Abdomen/GI: Negative for abdominal pain, nausea, vomiting, diarrhea, and constipation, Back: Negative for injury and pain, : Negative for injury, bleeding, discharge, and swelling, MS/Extremity: Negative for injury and deformity, Skin: Negative for injury, rash, and discoloration, Neuro: Negative for headache, weakness, numbness, tingling, and seizure, Psych: Negative for depression, anxiety, suicide ideation, homicidal ideation, and hallucinations, Allergy/Immunology: Negative for hives, rash, and allergies, Endocrine: Negative for neck swelling, polydipsia, polyuria, polyphagia, and marked weight changes, Hematologic/Lymphatic: Negative for swollen nodes, abnormal bleeding, and unusual bruising. 22:59 Cardiovascular: Positive for chest pain, of the chest. Exam: 22:59 Constitutional: This is a well developed, well nourished patient who is awake, alert, shayla and in no acute distress. Head/Face: Normocephalic, atraumatic. Eyes: Pupils equal round and reactive to light, extra-ocular motions intact. Lids and lashes normal. Conjunctiva and sclera are non-icteric and not injected. Cornea within normal limits. Periorbital areas with no swelling, redness, or edema. ENT: Nares patent. No nasal discharge, no septal abnormalities noted. Tympanic membranes are normal and external auditory canals are clear. Oropharynx with no redness, swelling, or masses, exudates, or evidence of obstruction, uvula midline. Mucous membranes moist. Neck: Trachea midline, no thyromegaly or masses palpated, and no cervical lymphadenopathy. Supple, full range of motion without nuchal rigidity, or vertebral point tenderness. No Meningismus. Chest/axilla: Normal chest wall appearance and motion. Nontender with no deformity. No lesions are appreciated. Cardiovascular: Regular rate and rhythm with a normal S1 and S2. No gallops, murmurs, or rubs. Normal PMI, no JVD. No pulse deficits. Respiratory: Lungs have equal breath sounds bilaterally, clear to auscultation and percussion. No rales, rhonchi or wheezes noted. No increased work of breathing, no retractions or nasal flaring. Abdomen/GI: Soft, non-tender, with normal bowel sounds. No distension or tympany. No guarding or rebound. No evidence of tenderness throughout. Back: No spinal tenderness. No costovertebral tenderness. Full range of motion. Skin: Warm, dry with normal turgor. Normal color with no rashes, no lesions, and no evidence of cellulitis. MS/ Extremity: Pulses equal, no cyanosis. Neurovascular intact. Full, normal range of motion. Neuro: Awake and alert, GCS 15, oriented to person, place, time, and situation. Cranial nerves II-XII grossly intact. Motor strength 5/5 in all extremities. Sensory grossly intact. Cerebellar exam normal. Normal gait. Psych: Awake, alert, with orientation to person, place and time. Behavior, mood, and affect are within normal limits. 23:07 ECG was reviewed by the Attending Physician. shayla 10/06 00:06 Musculoskeletal/extremity: DVT Exam: No signs of deep vein thrombosis. no pain, no shayla swelling, no tenderness, negative Homans' sign noted on exam, no appreciated bluish discoloration, no erythema, no increased warmth. Vital Signs: 10/05 19:24 BP 117 / 67; Pulse 81; Resp 16; Temp 98.2; Pulse Ox 100% ; Weight 111.13 kg; Height 5 hb ft. 8 in. (172.72 cm); Pain 3/10; 10/06 01:14 BP 115 / 71; Pulse 68; Resp 17; Temp 98.7; Pulse Ox 100% ; rr5 10/05 19:24 Body Mass Index 37.25 (111.13 kg, 172.72 cm) hb MDM: 10/05 22:07 Patient medically screened. shayla 22:07 Patient medically screened. shayla 23:03 Differential diagnosis: abnormal EKG, acute pericarditis, Cholelithiasis hiatal hernia, shayla pancreatitis, pulmonary embolus, stable angina, unstable angina. HEART Score: History: Slightly Suspicious (0), ECG: Normal (0), Age: < or = 45 years (0), Risk Factors: No Risk Factors Known (0), Troponin: < or = 1 x Normal Limit (0). The patient's deep vein thrombosis risk score was calculated as follows: Total Score: 0. This patient was found to be at low risk for a deep vein thrombosis by using the Well's assessment criteria. The patient's pulmonary embolism risk score was calculated as follows: No Risks (0 Pts) Total Score: 0-2 points. This patient was found to be at low risk for a pulmonary embolism by using the Well's assessment criteria. ESSIE Risk Score: TOTAL SCORE = 0. Data reviewed: vital signs, nurses notes, lab test result(s), EKG, radiologic studies, plain films. 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 Test interpretation: by ED physician or midlevel provider: ECG, plain radiologic studies. 10/05 19:40 Order name: Glucose, Ancillary Testing; Complete Time: 23:50 EDMS 10/05 22:08 Order name: Basic Metabolic Panel; Complete Time: 00:04 [facility] 10/05 22:08 Order name: CBC with Diff; Complete Time: 00:04 [facility] 10/05 22:08 Order name: LFT's; Complete Time: 00:04 [facility] 10/05 22:08 Order name: Magnesium; Complete Time: 00:04 [facility] 10/05 22:08 Order name: NT PRO-BNP; Complete Time: 00:04 [facility] 10/05 22:08 Order name: Troponin (emerg Dept Use Only); Complete Time: 00:04 [facility] 10/05 22:08 Order name: EKG; Complete Time: 22:09 [facility] 10/05 22:08 Order name: Cardiac monitoring; Complete Time: 23:12 [facility] 10/05 22:08 Order name: EKG - Nurse/Tech; Complete Time: 23:10 [facility] 10/05 23:00 Order name: XRAY Chest (1 view) 10/05 22:08 Order name: IV Saline Lock; Complete Time: 23:23 [facility] 10/05 22:08 Order name: Labs collected and sent; Complete Time: 23:23 [facility] 10/05 22:08 Order name: O2 Per Protocol; Complete Time: 23:23 [facility] 10/05 22:08 Order name: O2 Sat Monitoring; Complete Time: 23:23 [facility] 10/06 00:04 Order name: FHT's; Complete Time: 00:30 [facility] 10/06 00:46 Order name: PO challenge; Complete Time: : [facility] EC:07 Rate is 84 beats/min. Rhythm is regular. QRS [place] is Normal. NM interval is normal. QRS shayla interval is normal. QT interval is normal. No Q waves. T waves are Normal. No ST changes noted. Clinical impression: Normal ECG and No evidence of ischemia. Interpreted by me. Reviewed by me. Administered Medications: No medications were administered Point of Care Testing: Blood Glucose: 19:28 Blood Glucose: 109 mg/dL; hb Ranges: Critical Glucose Levels:Adult <50 mg/dl or >400 mg/dl <40 mg/dl or >180 mg/dl Disposition: 10/06/20 00:05 Discharged to Home. Impression: Chest pain, unspecified, related conditions, unspecified, second trimester, Type 2 diabetes mellitus. - Condition is Stable. - Discharge Instructions: Nonspecific Chest Pain, Chest Wall Pain, Nonspecific Chest Pain, Jzcb-je-[id number], Second Trimester of , Zmai-xd-Xjpz, Type 1 or Type 2 Diabetes Mellitus During , Self Care, Type 1 or Type 2 Diabetes Mellitus During , Diagnosis, Uoyo-hq-Dggg, Type 1 or Type 2 Diabetes Mellitus During , Diagnosis. - Prescriptions for Vitamin 27- 0.8 mg Oral Tablet - take 1 tablet by ORAL route once daily; 30 tablet. - Medication Reconciliation Form, Thank You Letter, Antibiotic Education, Prescription Opioid Use form. - Follow up: Private Physician; When: 2 - 3 days; Reason: Recheck today's complaints, Continuance of care, Re-evaluation by your physician. Follow up: Isidoro Bowman; When: 2 - 3 days; Reason: Recheck today's complaints, Re-evaluation by your physician. - Problem is new. - Symptoms have improved. 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 [facility] 10/06 01:16 00:05 10/06/2020 00:05 Discharged to Home. Impression: Chest pain, unspecified; rr5 related conditions, unspecified, second trimester; Type 2 diabetes mellitus. Condition is Stable. Discharge Instructions: Nonspecific Chest Pain, Chest Wall Pain, Nonspecific Chest Pain, Bcow-pa-Rnua, Second Trimester of , Ejab-hp-Vlzf, Type 1 or Type 2 Diabetes Mellitus During , Self Care, Type 1 or Type 2 Diabetes Mellitus During , Diagnosis, Kpkc-wh-Ofng, Type 1 or Type 2 Diabetes Mellitus During , Diagnosis. Prescriptions for Vitamin 27-0.8 mg Oral Tablet - take 1 tablet by ORAL route once daily; 30 tablet. and Forms are Medication Reconciliation Form, Thank You Letter, Antibiotic Education, Prescription Opioid Use. Follow up: Private Physician; When: 2 - 3 days; Reason: Recheck today's complaints, Continuance of care, Re-evaluation by your physician. Follow up: Isidoro Bowman; When: 2 - 3 days; Reason: Recheck today's complaints, Re-evaluation by your physician. Problem is new. Symptoms have improved. shayla
[2020-10-06 01:37] VITALS: BP 115/71; TEMP 98.7; O2SAT 100
--- NOTE | 2020-10-06 09:04 | RAD REPORT ---
EXAM DESCRIPTION: RAD - Chest Single View - 10/05/2020 11:35 pm CLINICAL HISTORY: CHEST PAIN Chest pain. COMPARISON: No comparisons FINDINGS: Portable technique limits examination quality. The lungs are grossly clear. The heart is normal in size. No displaced fractures. IMPRESSION: No acute intrathoracic process suspected.
--- NOTE | 2020-10-06 11:21 | EKG ---
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
== END 2020-10-06 01:16 | disposition home or self-care (01) ==
LOC: ER 18:36
DX: O26.892 Other specified pregnancy related conditions, second trimester (principal); O24.912 Unspecified diabetes mellitus in pregnancy, second trimester; Z3A.23 23 weeks gestation of pregnancy
CPT/HCPCS: 36415; 71045; 80048; 80076; 82947; 83735; 83880; 84484; 85025; 93005; 99218; 99285

== ENCOUNTER 2020-10-14 12:18 | Emergency (ER) | payer OTHER ==
--- OUTSIDE RECORDS SUMMARY | 2020-10-14 12:27 | XMS REPORT | Continuity of Care Document ---
:1995 Author Organization [facility] t Address [address] [place] [address] Care Team Providers Name Role Phone [place] [...] Facility Department ID 2020-07-18 2020-07-18 Emergency Singer [facility] [id number] 02:20:00 05:24:00 Ino Sy [id number] [place] [id number] [place] [id number] 2019-04-17 2019-04-17 [facility] Radiology [facility] [id number] 13:12:28 23:59:00 Encounter Kerrie [id number] [place] [id number] [place] [id number] 2019-04-17 2019-04-17 Orders Doctor DEAN [id number] 00:00:00 00:00:00 Only UnassELLI [id number] [place] [facility] [id number] Results This patient has no known results.
[2020-10-14] MEDS ORDERED: NA CHLORIDE 0.9% 1,000 ML ONE (13:57)
[2020-10-14 14:04] LABS: Absolute Lymphocytes (CBC) 2.6 K/uL (0.7-4.9); Basophils % 0.4 % (0-1.3); Hematocrit 33.1 % (36.0-45.0); Lymphocytes % 24.8 % (15.3-44.8); MPV 9.4 fL (7.6-11.3); RBC Red Blood Cell Count 3.78 M/uL (3.86-4.86)
[2020-10-14 14:05] LABS: Urine Blood NEGATIVE (NEG); Urine Glucose NEGATIVE (NEG); Urine Protein NEGATIVE (NEG); Urine pH 6.5 (5.0-7.0)
[2020-10-14 14:06] LABS: BUN Blood Urea Nitrogen 7 mg/dL (7-18); Bicarbonate 23 mmol/L (21-32); Glucose Level 73 mg/dL (74-106); Potassium 3.7 mmol/L (3.5-5.1); Sodium Level 137 mmol/L (136-145)
[2020-10-14 15:15] LABS: SARS-COV-2 RT PCR NEGATIVE (NEGATIVE)
--- NOTE | 2020-10-14 16:04 | ER ---
Nurse's Notes [facility] Name: Kianna Preston Age: 24 yrs Sex: Female : 1995 Arrival Date: 10/14/2020 Time: 12:25 Bed 16 Private MD: Diagnosis: Acute Gastroenteritis Presentation: 10/14 12:39 Chief complaint: Patient states: Sent here by my OB to be tested for Covid. Symptoms ca1 started 2 days ago with fatigue, I slept for 12 hrs that day. Yesterday, started having diarrhea with 3 - 4 episodes. Vomiting today. Also reports headache, fatigue, BGL 219 at home. 24 wks . Coronavirus screen: Client denies travel out of the [place] in the last 14 days. diarrhea, fatigue, headache, nausea, vomiting. Client presents with at least one sign or symptom that may indicate coronavirus-19. Standard/surgical mask placed on the client. Provider contacted for isolation considerations. Ebola Screen: Patient negative for fever greater than or equal to 101.5 degrees Fahrenheit, and additional compatible Ebola Virus Disease symptoms Patient denies exposure to infectious person. Patient denies travel to an Ebola-affected area in the 21 days before illness onset. No symptoms or risks identified at this time. Initial Sepsis Screen: Does the patient meet any 2 criteria? No. Patient's initial sepsis screen is negative. Does the patient have a suspected source of infection? No. Patient's initial sepsis screen is negative. Risk Assessment: Do you want to hurt yourself or someone else? Patient reports no desire to harm self or others. Onset of symptoms was October 14, 2020. 12:39 Method Of Arrival: Wheelchair ca1 12:39 Acuity: STEPHANY 3 ca1 PLEATER: 16:49 Verified jl7 Historical: - Allergies: 12:52 No Known Allergies; ca1 - Home Meds: 12:52 Vitamin Oral [Active]; ca1 12:54 glimepiride Oral [Active]; Prevacid Oral [Active]; Aspirin Oral [Active]; Azo-Standard ca1 Oral [Active]; Vitamin D Oral [Active]; - PMHx: 12:52 adhd; Anxiety; Bipolar disorder; Diabetes - NIDDM; Suicide Attempts; ca1 - PSHx: 12:52 Foot - Bilateral; ca1 - Immunization history:: Flu vaccine is up to date. - Social history:: Smoking status: Reported history of juuling and/or vaping. Patient/guardian denies using tobacco. Screenin:00 Abuse screen: Denies threats or abuse. Denies injuries from another. Nutritional jl7 screening: No deficits noted. Tuberculosis screening: No symptoms or risk factors identified. Fall Risk IV access (20 points). Total Narayan Fall Scale indicates No Risk (0-24 pts). Assessment: 13:00 General: Appears in no apparent distress. uncomfortable, Behavior is calm, cooperative, jl7 appropriate for age. Pain: Denies pain. Neuro: Level of Consciousness is awake, alert, obeys commands, Oriented to person, place, time, situation. Cardiovascular: Patient's skin is warm and dry. Respiratory: Airway is patent Respiratory effort is even, unlabored, Respiratory pattern is regular, symmetrical. GI: Reports diarrhea, nausea. Derm: Skin is pink, warm \T\ dry. 14:00 Reassessment: Patient appears in no apparent distress at this time. No changes from jl7 previously documented assessment. Patient and/or family updated on plan of care and expected duration. Pain level reassessed. Patient is alert, oriented x 3, equal unlabored respirations, skin warm/dry/pink. 15:00 Reassessment: Patient appears in no apparent distress at this time. No changes from jl7 previously documented assessment. Patient and/or family updated on plan of care and expected duration. Pain level reassessed. Patient is alert, oriented x 3, equal unlabored respirations, skin warm/dry/pink. 16:00 Reassessment: Patient appears in no apparent distress at this time. No changes from jl7 previously documented assessment. Patient and/or family updated on plan of care and expected duration. Pain level reassessed. Patient is alert, oriented x 3, equal unlabored respirations, skin warm/dry/pink. Vital Signs: 12:39 BP 116 / 76; Pulse 86; Resp 17 S; Temp 97(TE); Pulse Ox 99% on R/A; Weight 112.49 kg ca1 (R); Height 5 ft. 8 in. (172.72 cm) (R); 15:00 BP 115 / 76; Pulse 80; Resp 15; Pulse Ox 100% ; jl7 12:39 Body Mass Index 37.71 (112.49 kg, 172.72 cm) ca1 ED Course: 12:25 Patient arrived in ED. am4 12:48 Kyra Kelly RN is Primary Nurse. jl7 12:51 Jaiden Dawson PA is PHCP. jr8 12:51 Oleksandr Campoverde MD is Attending Physician. jr8 12:51 Triage completed. ca1 12:54 Arm band placed on right wrist. ca1 13:00 Patient has correct armband on for positive identification. Placed in gown. Bed in low jl7 position. Call light in reach. Side rails up X 1. 13:38 Inserted saline lock: 20 gauge in left antecubital area, using aseptic technique. Blood dh4 collected. 13:38 Flu Sent. dh4 13:38 COVID-19 Sent. dh4 13:38 Basic Metabolic Panel Sent. dh4 13:38 CBC with Diff Sent. dh4 14:01 Urine --Ancillary (enter results) Sent. sv 14:01 Urine Dipstick--Ancillary (enter results) Sent. sv 15:00 No provider procedures requiring assistance completed. jl7 15:41 CORONAVIRUS Sent. jl7 15:41 Influenza Screen (A Sent. jl7 16:49 IV discontinued, intact, bleeding controlled, No redness/swelling at site. Pressure jl7 dressing applied. Administered Medications: 13:46 Drug: NS 0.9% 1000 ml Route: IV; Rate: 1000 ml; Site: left antecubital; jl7 15:00 Follow up: IV Status: Completed infusion; IV Intake: 1000ml jl7 Intake: 15:00 IV: 1000ml; Total: 1000ml. jl7 Outcome: 16:04 Discharge ordered by . jr8 16:49 Discharged to home ambulatory. jl7 16:49 Condition: stable 16:49 Discharge instructions given to patient, Instructed on discharge instructions, follow up and referral plans. Demonstrated understanding of instructions, follow-up care. 16:50 Patient left the ED. jl7 Signatures: Misty Pond RN RN Jaiden Dawson PA PA jr8 Kyra Kelly RN RN jl7 Britt Medeiros RN RN [facility] Kendall Hayden 4 [facility]
--- NOTE | 2020-10-14 16:04 | EDPHYS ---
Physician Documentation [facility] Name: Kianna Preston Age: 24 yrs Sex: Female : 1995 Arrival Date: 10/14/2020 Time: 12:25 Bed 16 Private MD: ED Physician Oleksandr Campoverde HPI: 10/14 13:30 This 24 yrs old Female presents to ER via Wheelchair with complaints of R/O jr8 COVID. 13:30 Patient stated that she was sent by [place] in [place] to be evaluated by ED for possible jr8 covid. Stated that she is 24wks . Symptoms have been increased fatigue, headache, nausea, diarrhea. Denies vaginal bleeding, clear fluid leaking, or abdominal pain . Severity of symptoms: At their worst the symptoms were mild in the emergency department the symptoms are unchanged. The patient has not experienced similar symptoms in the past. The patient has not recently seen a physician. 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 - Social history:: Smoking status: Reported history of juuling and/or vaping. Patient/guardian denies using tobacco. ROS: 13:30 Eyes: Negative for injury, pain, redness, and discharge, ENT: Negative for injury, jr8 pain, and discharge, Neck: Negative for injury, pain, and swelling, Cardiovascular: Negative for chest pain, palpitations, and edema, Respiratory: Negative for shortness of breath, cough, wheezing, and pleuritic chest pain, Back: Negative for injury and pain, MS/Extremity: Negative for injury and deformity, Skin: Negative for injury, rash, and discoloration. 13:30 Constitutional: Positive for fatigue, malaise. 13:30 Abdomen/GI: Positive for nausea, vomiting, and diarrhea, Negative for abdominal pain. 13:30 Neuro: Positive for headache. Exam: 13:30 Constitutional: This is a well developed, well nourished patient who is awake, alert, jr8 and in no acute distress. Eyes: Pupils equal round and reactive to light, extra-ocular motions intact. Lids and lashes normal. Conjunctiva and sclera are non-icteric and not injected. Cornea within normal limits. Periorbital areas with no swelling, redness, or edema. ENT: Nares patent. No nasal discharge, no septal abnormalities noted. Tympanic membranes are normal and external auditory canals are clear. Oropharynx with no redness, swelling, or masses, exudates, or evidence of obstruction, uvula midline. Mucous membranes moist. Neck: Trachea midline, no thyromegaly or masses palpated, and no cervical lymphadenopathy. Supple, full range of motion without nuchal rigidity, or vertebral point tenderness. No Meningismus. Cardiovascular: Regular rate and rhythm with a normal S1 and S2. No gallops, murmurs, or rubs. Normal PMI, no JVD. No pulse deficits. Respiratory: Lungs have equal breath sounds bilaterally, clear to auscultation and percussion. No rales, rhonchi or wheezes noted. No increased work of breathing, no retractions or nasal flaring. Back: No spinal tenderness. No costovertebral tenderness. Full range of motion. Skin: Warm, dry with normal turgor. Normal color with no rashes, no lesions, and no evidence of cellulitis. MS/ Extremity: Pulses equal, no cyanosis. Neurovascular intact. Full, normal range of motion. Neuro: Awake and alert, GCS 15, oriented to person, place, time, and situation. Cranial nerves II-XII grossly intact. Motor strength 5/5 in all extremities. Sensory grossly intact. 13:30 Abdomen/GI: Inspection: gravid appearance, is noted, Bowel sounds: active, Palpation: abdomen is soft and non-tender, Liver: no appreciated palpable abnormalities. Vital Signs: 12:39 BP 116 / 76; Pulse 86; Resp 17 S; Temp 97(TE); Pulse Ox 99% on R/A; Weight 112.49 kg ca1 (R); Height 5 ft. 8 in. (172.72 cm) (R); 15:00 BP 115 / 76; Pulse 80; Resp 15; Pulse Ox 100% ; jl7 12:39 Body Mass Index 37.71 (112.49 kg, 172.72 cm) ca1 MDM: 12:58 Patient medically screened. [facility] 15:59 Data reviewed: vital signs, nurses notes, lab test result(s), and as a result, I will jr8 discharge patient. Data interpreted: Pulse oximetry: on room air is 99 %. Interpretation: normal. Counseling: I had a detailed discussion with the patient and/or guardian regarding: the historical points, exam findings, and any diagnostic results supporting the discharge/admit diagnosis, lab results, the need for outpatient follow up, an OB/Gyne specialist, to return to the emergency department if symptoms worsen or persist or if there are any questions or concerns that arise at home. 10/14 12:59 Order name: CBC with Diff [facility] 10/14 12:59 Order name: Basic Metabolic Panel [facility] 10/14 12:59 Order name: COVID-19 [facility] 10/14 12:59 Order name: Flu [facility] 10/14 13:55 Order name: Urine Dipstick--Ancillary (enter results) 10/14 13:55 Order name: Urine --Ancillary (enter results) 10/14 14:06 Order name: Urine --Ancillary; Complete Time: 14:27 [facility] 10/14 14:06 Order name: Urine Dipstick-Ancillary; Complete Time: 14:27 [facility] 10/14 14:06 Order name: CBC with Automated Diff; Complete Time: 14:27 [facility] 10/14 14:06 Order name: Basic Metabolic Panel; Complete Time: 14:27 [facility] 10/14 14:18 Order name: CORONAVIRUS [facility] 10/14 14:18 Order name: Influenza Screen (A [facility] 10/14 15:15 Order name: COVID-19/FLU A+B; Complete Time: 15:59 [facility] 10/14 13:00 Order name: IV; Complete Time: 13:38 [facility] 10/14 13:13 Order name: Urine Dipstick-Ancillary (obtain specimen); Complete Time: 13:46 [facility] Administered Medications: 13:46 Drug: NS 0.9% 1000 ml Route: IV; Rate: 1000 ml; Site: left antecubital; [facility] 15:00 Follow up: IV Status: Completed infusion; IV Intake: 1000ml 7 Disposition: 16:55 Co-signature as Attending Physician, Oleksandr Campoverde MD I agree with the assessment and tw4 plan of care. Disposition: 10/14/20 16:04 Discharged to Home. Impression: Acute Gastroenteritis. - Condition is Stable. - Discharge Instructions: Viral Gastroenteritis, Adult. - Medication Reconciliation Form, Thank You Letter, Antibiotic Education, Prescription Opioid Use, Work release form form. - Follow up: Private Physician; When: 2 - 3 days; Reason: Recheck today's complaints, Continuance of care, Re-evaluation by your physician. - Problem is new. - Symptoms have improved. Signatures: Dispatcher [employer] EDMS Jaiden Dawson PA PA jr8 Kyra Kelly RN RN jl7 Oleksandr Campoverde MD MD 4 Britt Medeiros RN [place] ca1 Corrections: (The following items were deleted from the chart) 16:50 16:04 10/14/2020 16:04 Discharged to Home. Impression: Acute Gastroenteritis. Condition jl7 is Stable. Forms are Medication Reconciliation Form, Thank You Letter, Antibiotic Education, Prescription Opioid Use. Follow up: Private Physician; When: 2 - 3 days; Reason: Recheck today's complaints, Continuance of care, Re-evaluation by your physician. Problem is new. Symptoms have improved. jr8
[2020-10-14 16:54] VITALS: TEMP 97
[2020-10-14 16:55] VITALS: BP 115/76; O2SAT 100
== END 2020-10-14 16:50 | disposition home or self-care (01) ==
LOC: ER 12:18
DX: O99.612 Diseases of the digestive system complicating pregnancy, second trimester (principal); K52.9 Noninfective gastroenteritis and colitis, unspecified; O99.342 Other mental disorders complicating pregnancy, second trimester; F31.9 Bipolar disorder, unspecified; O24.912 Unspecified diabetes mellitus in pregnancy, second trimester; Z20.822 Contact with and (suspected) exposure to COVID-19; Z3A.24 24 weeks gestation of pregnancy; Z79.82 Long term (current) use of aspirin
CPT/HCPCS: 85025; 80048; 36415; 81025; 81003; 0240U; 96360; 99283; J7030

== ENCOUNTER 2021-01-24 01:27 | Emergency (ER) | payer OTHER ==
--- OUTSIDE RECORDS SUMMARY | 2021-01-24 01:31 | XMS REPORT | Continuity of Care Document ---
:1995 Author Organization [facility] t Address [address] [place] [address] Dr. Ferrera. [address] [place] [address] Care Team Providers Name Role Phone Whitehead DO Attending Clinician Radiology Attending Clinician Unavailable Doctor Unassigned, Name Attending Clinician Unavailable Payers Payer Name Policy Type Policy Number Effective Date Expiration Date S ource Problems This patient has no known problems. Allergies, Adverse Reactions, Alerts Allergy Allergy Status Severity Reaction(s) Onset Inactive Treating Comm ents Source Name Type Date Date Clinician No Known DA Active U [facility] 2 [facility] 00:00: [address] Medications This patient has no known medications. Procedures This patient has no known procedures. Encounters Start End Encounter Admission Attending Care Care Encounter Source Date/Time Date/Time Type Type Clinicians Facility Department ID 2020-07-18 2020-07-18 Ines Whitehead [facility] [id number] 02:20:00 05:24:00 Ino Sy [id number] [place] [id number] [place] [id number] 2019-04-17 2019-04-17 Hospital Radiology [facility] [id number] 13:12:28 23:59:00 Encounter Kerrie [id number] [place] [id number] [place] [id number] 2019-04-17 2019-04-17 Orders Doctor DIANNE [id number] 00:00:00 00:00:00 Only Unassigned, ELLI 350.1.13.10 [place] [facility] [id number] Results Test Description Test Time Test Comments Results Result Comments Source GLUBED 2021-01-06 13:16:00 Test Item Value Reference Range Interpretation Comme nts GLUBED (test code = GLUBED) 73 mg/dL 65-110 N [id number] 06:19:00 Test Item Value Reference Range Interpretation Comments GLUBED (test code = GLUBED) 74 mg/dL 65-110 N [id number] 22:04:00 Test Item Value Reference Range Interpretation Comments GLUBED (test code = GLUBED) 95 mg/dL 65-110 N [id number] 15:58:00 Test Item Value Reference Range Interpretation Comments GLUBED (test code = GLUBED) 111 mg/dL 65-110 H [id number] 12:32:00 Test Item Value Reference Range Interpretation Comments GLUBED (test code = GLUBED) 119 mg/dL 65-110 H [id number] 06:11:00 Test Item Value Reference Range Interpretation Comments GLUBED (test code = GLUBED) 95 mg/dL 65-110 N UA RFLX MICR CULT IF [id number] 15:28:00 Test Item Value Reference Range Interpretation Comments UA COLOR (test code = COLU) STRAW YELLOW UA APPEARANCE (test code = CLEAR CLEAR APPU) UA GLUCOSE DIPSTICK (test code NEGATIVE NEG = DGLUU) UA BILIRUBIN DIPSTICK (test NEGATIVE NEG code = BILU) UA KETONE DIPSTICK (test code NEGATIVE NEG = KETU) UA SPECIFIC GRAVITY (test code 1.003 1.001-1.035 N = SGU) UA BLOOD DIPSTICK (test code = 3+ NEG A DAYANNA) UA PH DIPSTICK (test code = 6.0 5-9 CISCO) UA PROTEIN DIPSTICK (test code NEGATIVE NEG = PROU) UA UROBILINIOGEN DIPSTICK NEGATIVE mg/dL NEG (test code = URO) UA NITRITE DIPSTICK (test code NEG NEG = SUDHA) UA LEUKOCYTE ESTERASE DIPSTICK NEG NEG (test code = LEUU) UA WBC (test code = WBCU) 0-2 #/hpf NONE SEEN UA RBC (test code = RBCU) 0-2 #/hpf NONE SEEN UA EPITHELIAL CELLS (test code RARE #/HPF RARE-FEW = EPIU) UA BACTERIA (test code = BACU) NEGATIVE /HPF RARE-FEW Indication for culture: Dysuria/FrequencySpecimen Description: CLEAN CATCH [id number] 15:26:00 Test Item Value Reference Range Interpretation Comments GLUBED (test code = GLUBED) 102 mg/dL 65-110 N [id number] 12:39:00 Test Item Value Reference Range Interpretation Comments GLUBED (test code = GLUBED) 132 mg/dL 65-110 H HGB [id number] 07:23:00 Test Item Value Reference Range Interpretation Comments HEMOGLOBIN (test code = HGB) 7.9 g/dL 10.1-13.8 L HEMATOCRIT (test code = HCT) 25.4 % 32.5-41.8 L [id number] 06:08:00 Test Item Value Reference Range Interpretation Comments GLUBED (test code = GLUBED) 67 mg/dL 65-110 N [id number] 21:38:00 Test Item Value Reference Range Interpretation Comments GLUBED (test code = GLUBED) 92 mg/dL 65-110 N [id number] 16:45:00 Test Item Value Reference Range Interpretation Comments GLUBED (test code = GLUBED) 91 mg/dL 65-110 N COMPREHENSIVE METABOLIC [id number] 10:27:00 Test Item Value Reference Range Interpretation Comments SODIUM (test code = NA) 138 mEq/L 135-145 N POTASSIUM (test code = K) 4.2 mEq/L 3.5-5.0 N CHLORIDE (test code = CL) 103 mEq/L 100-115 N CARBON DIOXIDE (test code = CO2) 24 mEq/L 22-31 N ANION GAP (test code = GAP) 14.80 10-20 N GLUCOSE (test code = GLU) 175 mg/dL 65-110 H BLOOD UREA NITROGEN (test code = 10 mg/dL 7-18 N BUN) GLOMERULAR FILTRATION RATE (test 104 ml/min >60 N code = GFR) CREATININE (test code = CREAT) 0.7 mg/dL 0.5-1.0 N TOTAL PROTEIN (test code = PROT) 6.4 gm/dL 6.3-8.2 N ALBUMIN (test code = ALB) 2.6 gm/dL 3.4-4.8 L CALCIUM (test code = CA) 8.9 mg/dL 8.4-10.2 N BILIRUBIN TOTAL (test code = 0.2 mg/dL 0.2-1.0 N BILT) SGOT/AST (test code = AST) 18 units/L 15-37 N SGPT/ALT (test code = ALT) 19 units/L 12-78 N ALKALINE PHOSPHATASE TOTAL (test 190 units/L 46-116 H code = ALKP) PROTHROMBIN [id number] 10:12:00 Test Item Value Reference Range Interpretation Comments PROTHROMBIN TIME PATIENT (test code 10.9 secs 10.4-12.4 N = PTP) THROMBOPLASTIN TIME [id number] 10:12:00 Test Item Value Reference Range Interpretation Comments THROMBOPLASTIN TIME PARTIAL (test 24.9 secs 22-38 N code = PTT) [id number] 10:12:00 Test Item Value Reference Range Interpretation Comments FIBRINOGEN (test code = FIB) 573 mg/dL 309-518 H CBC W/AUTO [id number] 09:48:00 Test Item Value Reference Range Interpretation Comments WHITE BLOOD CELL (test 16.7 K/mm3 6.5-12.3 H Resul ts verified by code = WBC) repeat analysis RED BLOOD CELL (test 3.49 M/mm3 3.51-4.69 L code = RBC) HEMOGLOBIN (test code = 9.7 g/dL 10.1-13.8 L HGB) HEMATOCRIT (test code = 31.7 % 32.5-41.8 L HCT) MEAN CELL VOLUME (test 90.8 fL 84.6-96.6 N code = MCV) MEAN CELL HGB (test code 27.8 pg 27.3-33.9 N = MCH) MEAN CELL HGB 30.6 gm/dL 32.0-34.2 L CONCETRATION (test code = MCHC) RED CELL DISTRIBUTION 15.2 % 12.2-16.3 N WIDTH (test code = RDW) PLATELET COUNT (test 251 K/mm3 134-363 N code = PLT) MEAN PLATELET VOLUME 11.8 fL 9.2-12.7 N (test code = MPV) NEUTROPHIL % (test code 82.2 % 57.9-77.3 H = NT%) LYMPHOCYTE % (test code 13.8 % 14.5-29.7 L = LY%) MONOCYTE % (test code = 3.3 % 3.6-10.2 L MO%) EOSINOPHIL % (test code 0.2 % 0.0-3.0 N = EO%) BASOPHIL % (test code = 0.1 % 0.1-0.9 N BA%) NEUTROPHIL # (test code 13.7 K/mm3 = NT#) LYMPHOCYTE # (test code 2.3 K/mm3 = LY#) MONOCYTE # (test code = 0.6 K/mm3 MO#) EOSINOPHIL # (test code 0.04 K/mm3 = EO#) BASOPHIL # (test code = 0.0 K/mm3 BA#) RBC MORPHOLOGY REQUIRED NORMAL NORMAL (test code = RBCM) PLATELET MORPHOLOGY NORMAL NORMAL REQUIRED (test code = PLTMR) COMPREHENSIVE METABOLIC [id number] 06:32:00 Test Item Value Reference Range Interpretation Comments SODIUM (test code = NA) 139 mEq/L 135-145 N POTASSIUM (test code = K) 4.3 mEq/L 3.5-5.0 N CHLORIDE (test code = CL) 104 mEq/L 100-115 N CARBON DIOXIDE (test code = CO2) 22 mEq/L 22-31 N ANION GAP (test code = GAP) 17.10 10-20 N GLUCOSE (test code = GLU) 70 mg/dL 65-110 N BLOOD UREA NITROGEN (test code = 9 mg/dL 7-18 N BUN) GLOMERULAR FILTRATION RATE (test 153 ml/min >60 N code = GFR) CREATININE (test code = CREAT) 0.5 mg/dL 0.5-1.0 N TOTAL PROTEIN (test code = PROT) 6.8 gm/dL 6.3-8.2 N ALBUMIN (test code = ALB) 2.7 gm/dL 3.4-4.8 L CALCIUM (test code = CA) 9.2 mg/dL 8.4-10.2 N BILIRUBIN TOTAL (test code = 0.3 mg/dL 0.2-1.0 N BILT) SGOT/AST (test code = AST) 14 units/L 15-37 L SGPT/ALT (test code = ALT) 23 units/L 12-78 N ALKALINE PHOSPHATASE TOTAL (test 203 units/L 46-116 H code = ALKP) Comments to Manager Applied: SPECIMEN IN LAB [facility] W/AUTO [id number] 05:59:00 Test Item Value Reference Range Interpretation Comments WHITE BLOOD CELL (test code = WBC) 11.4 K/mm3 6.5-12.3 N RED BLOOD CELL (test code = RBC) 3.80 M/mm3 3.51-4.69 N HEMOGLOBIN (test code = HGB) 10.5 g/dL 10.1-13.8 N HEMATOCRIT (test code = HCT) 33.6 % 32.5-41.8 N MEAN CELL VOLUME (test code = MCV) 88.4 fL 84.6-96.6 N MEAN CELL HGB (test code = MCH) 27.6 pg 27.3-33.9 N MEAN CELL HGB CONCETRATION (test 31.3 gm/dL 32.0-34.2 L code = MCHC) RED CELL DISTRIBUTION WIDTH (test 15.2 % 12.2-16.3 N code = RDW) PLATELET COUNT (test code = PLT) 269 K/mm3 134-363 N MEAN PLATELET VOLUME (test code = 11.8 fL 9.2-12.7 N MPV) NEUTROPHIL % (test code = NT%) 63.4 % 57.9-77.3 N LYMPHOCYTE % (test code = LY%) 27.7 % 14.5-29.7 N MONOCYTE % (test code = MO%) 6.9 % 3.6-10.2 N EOSINOPHIL % (test code = EO%) 1.2 % 0.0-3.0 N BASOPHIL % (test code = BA%) 0.3 % 0.1-0.9 N NEUTROPHIL # (test code = NT#) 7.2 K/mm3 LYMPHOCYTE # (test code = LY#) 3.2 K/mm3 MONOCYTE # (test code = MO#) 0.8 K/mm3 EOSINOPHIL # (test code = EO#) 0.14 K/mm3 BASOPHIL # (test code = BA#) 0.0 K/mm3 RBC MORPHOLOGY REQUIRED (test code NORMAL NORMAL = RBCM) PLATELET MORPHOLOGY REQUIRED (test NORMAL NORMAL code = PLTMR) Comments to Manager Applied: SPECIMEN IN LAB [id number] 20:49:00 Test Item Value Reference Range Interpretation Comments GLUBED (test code = GLUBED) 130 mg/dL 65-110 H [id number] 16:24:00 Test Item Value Reference Range Interpretation Comments GLUBED (test code = GLUBED) 86 mg/dL 65-110 N [id number] 11:54:00 Test Item Value Reference Range Interpretation Comments GLUBED (test code = GLUBED) 93 mg/dL 65-110 N [id number] 06:11:00 Test Item Value Reference Range Interpretation Comments GLUBED (test code = GLUBED) 73 mg/dL 65-110 N [id number] 20:42:00 Test Item Value Reference Range Interpretation Comments GLUBED (test code = GLUBED) 133 mg/dL 65-110 H [id number] 17:24:00 Test Item Value Reference Range Interpretation Comments GLUBED (test code = GLUBED) 107 mg/dL 65-110 N [id number] 11:32:00 Test Item Value Reference Range Interpretation Comments GLUBED (test code = GLUBED) 96 mg/dL 65-110 N [id number] 10:53:00 Test Item Value Reference Range Interpretation Comments GLUBED (test code = GLUBED) 143 mg/dL 65-110 H URINALYSIS [id number] 09:35:00 Test Item Value Reference Range Interpretation Comments UA COLOR (test code = COLU) YELLOW YELLOW UA APPEARANCE (test code = Slightly-Cloudy CLEAR APPU) UA GLUCOSE DIPSTICK (test NEGATIVE NEG code = DGLUU) UA BILIRUBIN DIPSTICK (test NEGATIVE NEG code = BILU) UA KETONE DIPSTICK (test code NEGATIVE NEG = KETU) UA SPECIFIC GRAVITY (test 1.011 1.001-1.035 N code = SGU) UA BLOOD DIPSTICK (test code NEG NEG = DAYANNA) UA PH DIPSTICK (test code = 6.0 5-9 CISCO) UA PROTEIN DIPSTICK (test NEGATIVE NEG code = PROU) UA UROBILINIOGEN DIPSTICK NEGATIVE mg/dL NEG (test code = URO) UA NITRITE DIPSTICK (test NEG NEG code = SUDHA) UA LEUKOCYTE ESTERASE NEG NEG DIPSTICK (test code = LEUU) UA WBC (test code = WBCU) 0-2 #/hpf NONE SEEN UA RBC (test code = RBCU) NONE SEEN #/hpf NONE SEEN UA EPITHELIAL CELLS (test FEW #/HPF RARE-FEW code = EPIU) UA BACTERIA (test code = RARE /HPF RARE-FEW BACU) UA MUCUS (test code = MUCU) RARE NONE SEEN URINE SAMPLE: CLEAN [id number] 06:17:00 Test Item Value Reference Range Interpretation Comments GLUBED (test code = GLUBED) 100 mg/dL 65-110 N [id number] 20:40:00 Test Item Value Reference Range Interpretation Comments GLUBED (test code = GLUBED) 127 mg/dL 65-110 H [id number] 16:44:00 Test Item Value Reference Range Interpretation Comments GLUBED (test code = GLUBED) 103 mg/dL 65-110 N [id number] 13:27:00 Test Item Value Reference Range Interpretation Comments GLUBED (test code = GLUBED) 85 mg/dL 65-110 N Phsician Notified [id number] 06:10:00 Test Item Value Reference Range Interpretation Comments GLUBED (test code = GLUBED) 100 mg/dL 65-110 N [id number] 21:19:00 Test Item Value Reference Range Interpretation Comments GLUBED (test code = GLUBED) 176 mg/dL 65-110 H [id number] 16:51:00 Test Item Value Reference Range Interpretation Comments GLUBED (test code = GLUBED) 135 mg/dL 65-110 H [id number] 11:16:00 Test Item Value Reference Range Interpretation Comments GLUBED (test code = GLUBED) 173 mg/dL 65-110 H [id number] 06:13:00 Test Item Value Reference Range Interpretation Comments GLUBED (test code = GLUBED) 148 mg/dL 65-110 H [id number] 22:43:00 Test Item Value Reference Range Interpretation Comments GLUBED (test code = GLUBED) 170 mg/dL 65-110 H [id number] 15:40:00 Test Item Value Reference Range Interpretation Comments GLUBED (test code = GLUBED) 135 mg/dL 65-110 H [id number] 10:59:00 Test Item Value Reference Range Interpretation Comments GLUBED (test code = GLUBED) 130 mg/dL 65-110 H [id number] 05:53:00 Test Item Value Reference Range Interpretation Comments GLUBED (test code = GLUBED) 101 mg/dL 65-110 N UR PROTEIN/CREATININE [id number] 22:39:00 Test Item Value Reference Range Interpretation Comments UR PROTEIN RANDOM (test code = 30.5 mg/dL PROTU) UR CREATININE RANDOM (test 104.1 mg/dL code = CREATU) PROTEIN/CREATININE RATIO (test 292.9 mg/gcrea <200 H code = P/CRATIO) [id number] 21:42:00 Test Item Value Reference Range Interpretation Comments GLUBED (test code = GLUBED) 85 mg/dL 65-110 N AG HEPATITIS B [id number] 20:25:00 Test Item Value Reference Range Interpretation Comments AG HEPATITIS B SURFACE (test code NONREACTIVE NONREACTIVE = HBSAG) IS CONSENT FORM SIGNED FOR HIV TESTING? YAB HEPATITIS C [id number] 20:25:00 Test Item Value Reference Range Interpretation Comments AB HEPATITIS C (test code = NONREACTIVE NONREACTIVE HCVAB) SIGNAL TO CUTOFF (test code = 0.06 <0.80 N CUTOFF) IS CONSENT FORM SIGNED FOR HIV TESTING? YAB [id number] 20:25:00 Test Item Value Reference Range Interpretation Comments AB TREPONEMA (test code = TREPAB) NONREACTIVE NONREACTIVE IS CONSENT FORM SIGNED FOR HIV TESTING? YAB HIV 1 20:25:00 Test Item Value Reference Range Interpretation Comments AB HIV 1 2 (test NONREACTIVE NONREACTIVE Done by [facility] code = [id number]) 4th Gen HIV Ag/Ab Combo Screen IS CONSENT FORM SIGNED FOR HIV TESTING? YAG HEPATITIS B [id number] 19:57:00 Test Item Value Reference Range Interpretation Comments AG HEPATITIS B SURFACE (test code NONREACTIVE NONREACTIVE = HBSAG) IS CONSENT FORM SIGNED FOR HIV TESTING? YAB HEPATITIS C [id number] 19:57:00 Test Item Value Reference Range Interpretation Comments AB HEPATITIS C (test code = HCVAB) NONREACTIVE SIGNAL TO CUTOFF (test code = CUTOFF) <0.80 IS CONSENT FORM SIGNED FOR HIV TESTING? YAB [id number] 19:57:00 Test Item Value Reference Range Interpretation Comments AB TREPONEMA (test code = TREPAB) NONREACTIVE NONREACTIVE IS CONSENT FORM SIGNED FOR HIV TESTING? YAB HIV 1 19:57:00 Test Item Value Reference Range Interpretation Comments AB HIV 1 2 (test code = [id number]) NONREACTIVE IS CONSENT FORM SIGNED FOR HIV TESTING? YCOVID 19 Asymptomatic IH [id number] 19:35:00 Test Item Value Reference Range Interpretation Comments COVID 19 NEGATIVE NEGATIVE This test has b een Asymptomatic IH AG authorize d only for the (test code = detection ofpro teins from COVNONPUIAG) SARS-CoV-2, not for any other viruses orpathogens. N egative results should be treated as presumptive andconfirmed wi th a molecular assay , if necessary for patientmanageme nt. Negative result s do not rule out COVID- 19 andshould not b e used as the sole basis for treatment orpat ient management deci sions, including infec tion controldecision s. Negative result s should be considered i n thecontext of a patient's recent exposure s, history and thepresence of clinical signs and symptoms consis tent withCOVID-19. T his test has not been FD A cleared or approved; th e test hasbeen authori lacy by FDA under an Emerge ncy Use Authorization(E UA) for use by ginoato abraham certified under the CLIA thatmeet the re quirements to perform mode rate, high or waivedcomple xity tests. This florecita t is authorized for use at thePoint of Car e (POC), i.e., in patien t care settingsoperati ng under a CLIA Certificat e of Waiver, Certifi inessa ofCompliance, o r Certificate of Accreditation. This test is only authori lacy for the duration of thedeclaration that circumstances e xist justifying theauthorizatio n of emergency use o f in vitro diagnostic test sfor detection and/o r diagnosis of CO VID-19 under Qgaitmb53 4(b)(1) of the Act, 21 U.S .C. 360bbb-3(b)(1), unless theauthorizatio n is terminated or r evoked sooner. COMPREHENSIVE METABOLIC [id number] 19:29:00 Test Item Value Reference Range Interpretation Comments SODIUM (test code = NA) 139 mEq/L 135-145 N POTASSIUM (test code = K) 4.0 mEq/L 3.5-5.0 N CHLORIDE (test code = CL) 105 mEq/L 100-115 N CARBON DIOXIDE (test code = CO2) 21 mEq/L 22-31 L ANION GAP (test code = GAP) 17.10 10-20 N GLUCOSE (test code = GLU) 72 mg/dL 65-110 N BLOOD UREA NITROGEN (test code = 8 mg/dL 7-18 N BUN) GLOMERULAR FILTRATION RATE (test 124 ml/min >60 N code = GFR) CREATININE (test code = CREAT) 0.6 mg/dL 0.5-1.0 N TOTAL PROTEIN (test code = PROT) 6.6 gm/dL 6.3-8.2 N ALBUMIN (test code = ALB) 2.7 gm/dL 3.4-4.8 L CALCIUM (test code = CA) 8.9 mg/dL 8.4-10.2 N BILIRUBIN TOTAL (test code = 0.3 mg/dL 0.2-1.0 N BILT) SGOT/AST (test code = AST) 21 units/L 15-37 N SGPT/ALT (test code = ALT) 28 units/L 12-78 N ALKALINE PHOSPHATASE TOTAL (test 190 units/L 46-116 H code = ALKP) CBC W/AUTO [id number] 19:08:00 Test Item Value Reference Range Interpretation Comments WHITE BLOOD CELL (test code = WBC) 10.0 K/mm3 6.5-12.3 N RED BLOOD CELL (test code = RBC) 3.74 M/mm3 3.51-4.69 N HEMOGLOBIN (test code = HGB) 10.2 g/dL 10.1-13.8 N HEMATOCRIT (test code = HCT) 35.1 % 32.5-41.8 N MEAN CELL VOLUME (test code = MCV) 93.9 fL 84.6-96.6 N MEAN CELL HGB (test code = MCH) 27.3 pg 27.3-33.9 N MEAN CELL HGB CONCETRATION (test 29.1 gm/dL 32.0-34.2 L code = MCHC) RED CELL DISTRIBUTION WIDTH (test 15.4 % 12.2-16.3 N code = RDW) PLATELET COUNT (test code = PLT) 214 K/mm3 134-363 N MEAN PLATELET VOLUME (test code = 11.9 fL 9.2-12.7 N MPV) NEUTROPHIL % (test code = NT%) 60.8 % 57.9-77.3 N LYMPHOCYTE % (test code = LY%) 28.8 % 14.5-29.7 N MONOCYTE % (test code = MO%) 7.4 % 3.6-10.2 N EOSINOPHIL % (test code = EO%) 2.1 % 0.0-3.0 N BASOPHIL % (test code = BA%) 0.4 % 0.1-0.9 N NEUTROPHIL # (test code = NT#) 6.1 K/mm3 LYMPHOCYTE # (test code = LY#) 2.9 K/mm3 MONOCYTE # (test code = MO#) 0.7 K/mm3 EOSINOPHIL # (test code = EO#) 0.21 K/mm3 BASOPHIL # (test code = BA#) 0.0 K/mm3 RBC MORPHOLOGY REQUIRED (test code NORMAL NORMAL = RBCM) PLATELET MORPHOLOGY REQUIRED (test NORMAL NORMAL code = PLTMR) [id number] 11:21:00 Test Item Value Reference Range Interpretation Comments GLUBED (test code = GLUBED) 117 mg/dL 65-110 H [id number] 06:19:00 Test Item Value Reference Range Interpretation Comments GLUBED (test code = GLUBED) 78 mg/dL 65-110 N [id number] 21:31:00 Test Item Value Reference Range Interpretation Comments GLUBED (test code = GLUBED) 76 mg/dL 65-110 N [id number] 19:26:00 Test Item Value Reference Range Interpretation Comments GLUBED (test code = GLUBED) 80 mg/dL 65-110 N [id number] 15:12:00 Test Item Value Reference Range Interpretation Comments GLUBED (test code = GLUBED) 114 mg/dL 65-110 H [id number] 05:47:00 Test Item Value Reference Range Interpretation Comments GLUBED (test code = GLUBED) 100 mg/dL 65-110 N [id number] 22:55:00 Test Item Value Reference Range Interpretation Comments GLUBED (test code = GLUBED) 134 mg/dL 65-110 H [id number] 21:37:00 Test Item Value Reference Range Interpretation Comments GLUBED (test code = GLUBED) 133 mg/dL 65-110 H [id number] 16:51:00 Test Item Value Reference Range Interpretation Comments GLUBED (test code = GLUBED) 90 mg/dL 65-110 N [id number] 12:25:00 Test Item Value Reference Range Interpretation Comments GLUBED (test code = GLUBED) 130 mg/dL 65-110 H [id number] 06:39:00 Test Item Value Reference Range Interpretation Comments GLUBED (test code = GLUBED) 98 mg/dL 65-110 N [id number] 21:02:00 Test Item Value Reference Range Interpretation Comments GLUBED (test code = GLUBED) 114 mg/dL 65-110 H [id number] 14:53:00 Test Item Value Reference Range Interpretation Comments GLUBED (test code = GLUBED) 123 mg/dL 65-110 H [id number] 11:33:00 Test Item Value Reference Range Interpretation Comments GLUBED (test code = GLUBED) 125 mg/dL 65-110 H COMPREHENSIVE METABOLIC [id number] 05:45:00 Test Item Value Reference Range Interpretation Comments SODIUM (test code = NA) 139 mEq/L 135-145 N POTASSIUM (test code = K) 3.9 mEq/L 3.5-5.0 N CHLORIDE (test code = CL) 104 mEq/L 100-115 N CARBON DIOXIDE (test code = CO2) 24 mEq/L 22-31 N ANION GAP (test code = GAP) 14.90 10-20 N GLUCOSE (test code = GLU) 77 mg/dL 65-110 N BLOOD UREA NITROGEN (test code = 9 mg/dL 7-18 N BUN) GLOMERULAR FILTRATION RATE (test 124 ml/min >60 N code = GFR) CREATININE (test code = CREAT) 0.6 mg/dL 0.5-1.0 N TOTAL PROTEIN (test code = PROT) 6.3 gm/dL 6.3-8.2 N ALBUMIN (test code = ALB) 2.5 gm/dL 3.4-4.8 L CALCIUM (test code = CA) 8.9 mg/dL 8.4-10.2 N BILIRUBIN TOTAL (test code = 0.2 mg/dL 0.2-1.0 N BILT) SGOT/AST (test code = AST) 18 units/L 15-37 N SGPT/ALT (test code = ALT) 20 units/L 12-78 N ALKALINE PHOSPHATASE TOTAL (test 128 units/L 46-116 H code = ALKP) GLYCOSYLATED HEMOGLOBIN (HA1C)2020-12-09 05:06:00 Test Item Value Reference Range Interpretation Comments GLYCOSYLATED 6.7 % 4.8-5.9 H Any condition t hat shortens HEMOGLOBIN (HA1C) erythocyte survival or (test code = GLYHGB) decreas esmean erythrocyte age (e.g., zion very from acute blood los s,hemolytic anemia) will fa lsely lower HGBA1c resultsr egardless of the method used . HGBA1c results from susanne espana HbSS, HbCC, and HbSc must be interpreted with cautiongiven th e pathological pr ocesses, including anemi a,increased red cell turnov er, transfusion req uirements, thatadversely i mpact HGBA1c as a marker of long-term glycemiccontrol . Alternative for ms of testing such as fructosaminesho uld be considered for these patients. GLYCOSYLATED HEMOGLOBIN [id number] 05:05:00 Test Item Value Reference Range Interpretation Comments GLYCOSYLATED 6.7 % 4.8-5.9 H Any condition t hat HEMOGLOBIN (HA1C) shortens e rythocyte (test code = survival or dec reasesmean GLYHGB) erythrocyte age (e.g., recovery from a cute blood loss,hemolytic anemia) will falsely lo wer HGBA1c resultsregardle ss of the method used. H GBA1c results from susanne shahith HbSS, HbCC, and HbSc must be interpreted with cautiongiven th e pathological pr ocesses, including anemia,increase d red cell turnover, trans fusion requirements, thatadversely i mpact HGBA1c as a mar ker of long-term glycemiccontrol . Alternative for ms of testing such as fructosaminesho uld be considered for these patients. MEAN BLOOD GLUCOSE 146 MG/DL 70-110 H (test code = MBG) [id number] 23:36:00 Test Item Value Reference Range Interpretation Comments GLUBED (test code = GLUBED) 103 mg/dL 65-110 N COVID 19 Asymptomatic IH [id number] 22:44:00 Test Item Value Reference Range Interpretation Comments COVID 19 NEGATIVE NEGATIVE This test has b een Asymptomatic IH AG authorize d only for the (test code = detection ofpro teins from COVNONPUIAG) SARS-CoV-2, not for any other viruses orpathogens. N egative results should be treated as presumptive andconfirmed wi th a molecular assay , if necessary for patientmanageme nt. Negative result s do not rule out COVID- 19 andshould not b e used as the sole basis for treatment orpat ient management deci sions, including infec tion controldecision s. Negative result s should be considered i n thecontext of a patient's recent exposure s, history and thepresence of clinical signs and symptoms consis tent withCOVID-19. T his test has not been FD A cleared or approved; th e test hasbeen authori zed by FDA under an Emerge ncy Use Authorization(E UA) for use by [facility] certified under the CLIA thatmeet the re quirements to perform mode rate, high or waivedcomple xity tests. This florecita t is authorized for use at thePoint of Car e (POC), i.e., in patien t care settingsoperati ng under a CLIA Certificat e of Waiver, Certifi inessa ofCompliance, o r Certificate of Accreditation. This test is only authori zed for the duration of thedeclaration that circumstances e xist justifying theauthorizatio n of emergency use o f in vitro diagnostic test sfor detection and/o r diagnosis of CO VID-19 under Yaffycd22 4(b)(1) of the Act, 21 U.S .C. 360bbb-3(b)(1), unless theauthorizatio n is terminated or r evoked sooner. [id number] 21:24:00 Test Item Value Reference Range Interpretation Comments GLUCOSE (test code = GLU) 106 mg/dL 65-110 N Comments to Manager Applied: PLEASE USE PREVIOUS SAMPLEAG HEPATITIS B SURFACE 2020-12-08 19:03:00 Test Item Value Reference Range Interpretation Comments AG HEPATITIS B SURFACE (test code NONREACTIVE NONREACTIVE = HBSAG) IS CONSENT FORM SIGNED FOR HIV TESTING? YAB HEPATITIS C [id number] 19:03:00 Test Item Value Reference Range Interpretation Comments AB HEPATITIS C (test code = NONREACTIVE NONREACTIVE HCVAB) SIGNAL TO CUTOFF (test code = 0.03 <0.80 N CUTOFF) IS CONSENT FORM SIGNED FOR HIV TESTING? YAB [id number] 19:03:00 Test Item Value Reference Range Interpretation Comments AB TREPONEMA (test code = TREPAB) NONREACTIVE NONREACTIVE IS CONSENT FORM SIGNED FOR HIV TESTING? YAB HIV 1 19:03:00 Test Item Value Reference Range Interpretation Comments AB HIV 1 2 (test NONREACTIVE NONREACTIVE Done by Tayo Crookr code = [id number]) 4th Gen HIV Ag/Ab Combo Screen IS CONSENT FORM SIGNED FOR HIV TESTING? YAG HEPATITIS B [id number] 17:47:00 Test Item Value Reference Range Interpretation Comments AG HEPATITIS B SURFACE (test code NONREACTIVE NONREACTIVE = HBSAG) IS CONSENT FORM SIGNED FOR HIV TESTING? YAB HEPATITIS C [id number] 17:47:00 Test Item Value Reference Range Interpretation Comments AB HEPATITIS C (test code = HCVAB) NONREACTIVE SIGNAL TO CUTOFF (test code = CUTOFF) <0.80 IS CONSENT FORM SIGNED FOR HIV TESTING? YAB [id number] 17:47:00 Test Item Value Reference Range Interpretation Comments AB TREPONEMA (test code = TREPAB) NONREACTIVE NONREACTIVE IS CONSENT FORM SIGNED FOR HIV TESTING? YAB HIV 1 17:47:00 Test Item Value Reference Range Interpretation Comments AB HIV 1 2 (test code = [id number]) NONREACTIVE IS CONSENT FORM SIGNED FOR HIV TESTING? YCBC W/AUTO [id number] 17:17:00 Test Item Value Reference Range Interpretation Comments WHITE BLOOD CELL (test code = WBC) 9.0 K/mm3 6.5-12.3 N RED BLOOD CELL (test code = RBC) 3.63 M/mm3 3.51-4.69 N HEMOGLOBIN (test code = HGB) 10.2 g/dL 10.1-13.8 N HEMATOCRIT (test code = HCT) 33.0 % 32.5-41.8 N MEAN CELL VOLUME (test code = MCV) 90.9 fL 84.6-96.6 N MEAN CELL HGB (test code = MCH) 28.1 pg 27.3-33.9 N MEAN CELL HGB CONCETRATION (test 30.9 gm/dL 32.0-34.2 L code = MCHC) RED CELL DISTRIBUTION WIDTH (test 15.8 % 12.2-16.3 N code = RDW) PLATELET COUNT (test code = PLT) 242 K/mm3 134-363 N MEAN PLATELET VOLUME (test code = 11.6 fL 9.2-12.7 N MPV) NEUTROPHIL % (test code = NT%) 65.5 % 57.9-77.3 N LYMPHOCYTE % (test code = LY%) 24.1 % 14.5-29.7 N MONOCYTE % (test code = MO%) 7.8 % 3.6-10.2 N EOSINOPHIL % (test code = EO%) 1.6 % 0.0-3.0 N BASOPHIL % (test code = BA%) 0.3 % 0.1-0.9 N NEUTROPHIL # (test code = NT#) 5.9 K/mm3 LYMPHOCYTE # (test code = LY#) 2.2 K/mm3 MONOCYTE # (test code = MO#) 0.7 K/mm3 EOSINOPHIL # (test code = EO#) 0.14 K/mm3 BASOPHIL # (test code = BA#) 0.0 K/mm3 RBC MORPHOLOGY REQUIRED (test code NORMAL NORMAL = RBCM) PLATELET MORPHOLOGY REQUIRED (test NORMAL NORMAL code = PLTMR) [id number] 14:55:00 Test Item Value Reference Range Interpretation Comments GLUBED (test code = GLUBED) 64 mg/dL 65-110 L - US FET BIO PH ID W/O [id number] 02:00:00 [facility] 1995 Sex: F Patient Name: TERRY FROST Unit No: [id number] EXAMS: CPT CODE: [id number] US FET BIO PH ID W/O NST 99466 STUDY: - US FET BIO PH ID W/O NST 11/25/2020 11:45 PM Ordering Physician: Michoacano Alvarez III, MD Patient Name: TERRY FROST MR: [id number] : 1995; Age: 24 years y/o Female Clinical Indication: contractions Comparison: None TECHNIQUE: Multiple static images from a biophysical profile ultrasound are submitted for interpretation. Additionally, the data sheet containing the observations of the technologist during the examination is provided. FINDINGS: GENERAL Single live intrauterine at 30 weeks 3 days by last menstrual period with heart rate of 135 bpm. Presentation: Breech Placental location and grade:Right anterior grade 2. A small venous ashton is present. Placenta previa: No. Amniotic fluid: Normal in appearance. YASMIN: 20.4 cm Cervix: Closed. Length: 4.3 cm. Normal maternal right ovary measuring 4.9 x 2.6 x 2.1 cm. Nonvisualized maternal left ovary. The structures are not evaluated on this examination. BIOPHYSICAL OBSERVATIONS breathing movements: 2/2 tone: 2/2 gross body motion: 2/2 Amniotic fluid volume: 2/2 IMPRESSION: Single live intrauterine at 30 weeks 3 days by last menstrual period. Normal biophysical profile at 8/8 points. YASMIN 20.4 cm. 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-H [facility] NAME: TERRY FROST Radiology Department PHYS: Michoacano Bolton III, MD [address] : 1995 AGE: 24 SEX: F [place] [address] LOC: JORDANED PHONE #: [phone] EXAM DATE: 11/25/2020 STATUS: REG ER FAX #: [phone] RAD NO: Page 1 Signed Report (CONTINUED) Patient Name: TERRY FROST Unit No: [id number] EXAMS: CPT CODE: [id number] FET BIO PH ID W/O NST 76220 <Continued> at 0200 Reported and signed by: Hank Rodriguez MD CC: Nkechi Maravilla MD; Michoacano Alvarez III, MD Technologist: Bettie Bill RDMS Probe: Trnscrbd D/ (0200) [id number] Orig Print D/T: S: 021 (0216) [facility] NAME: TERRY FROST Radiology Department PHYS: Michoacano Bolton III, MD [address] : 1995 AGE: 24 SEX: [place] [address] LOC: BHAVNA PHONE #: [phone] EXAM DATE: 11/25/2020 STATUS: REG ER FAX #: [phone] RAD NO: Page 2 Signed Report Patient Name: TERRY FROST Unit No: [id number] EXAMS: CPT CODE: [id number] FET BIO PH ID W/O NST 12488 <Continued> [facility] NAME: TERRY FROST Radiology Department PHYS: Michoacano Bolton III, MD [address] : 1995 AGE: 24 SEX: [place] [address] LOC: МарияEVERETTE PHONE #: [phone] EXAM DATE: 11/25/2020 STATUS: REG ER FAX #: [phone] RAD NO: Page 3 Signed ReportFETAL [id number] 01:13:00 Test Item Value Reference Range Interpretation Comments FIBRONECTIN NEGATIVE Among symp tomatic (test code = FFN) women, gretel vated levels (>0.05 ug/mL) o ffFN between 24 week s and 34 weeks, 6 days i ndicate increasedrisk o f delivery in <= 7 or <= 14 days from samplecollectio n. Similarly, kristi g asymptomatic wo men, elevated levels of fFNbetween 22 w eeks and 30 weeks, 6 day s indicate increa sedrisk of delivery in <= 34 weeks, 6 days o f gestation. COMPREHENSIVE METABOLIC [id number] 00:59:00 Test Item Value Reference Range Interpretation Comments SODIUM (test code = NA) 137 mEq/L 135-145 N POTASSIUM (test code = K) 4.0 mEq/L 3.5-5.0 N CHLORIDE (test code = CL) 103 mEq/L 100-115 N CARBON DIOXIDE (test code = CO2) 22 mEq/L 22-31 N ANION GAP (test code = GAP) 16.00 10-20 N GLUCOSE (test code = GLU) 87 mg/dL 65-110 N BLOOD UREA NITROGEN (test code = 7 mg/dL 7-18 N BUN) GLOMERULAR FILTRATION RATE (test 154 ml/min >60 N code = GFR) CREATININE (test code = CREAT) 0.5 mg/dL 0.5-1.0 N TOTAL PROTEIN (test code = PROT) 6.8 gm/dL 6.3-8.2 N ALBUMIN (test code = ALB) 2.7 gm/dL 3.4-4.8 L CALCIUM (test code = CA) 8.3 mg/dL 8.4-10.2 L BILIRUBIN TOTAL (test code = 0.2 mg/dL 0.2-1.0 N BILT) SGOT/AST (test code = AST) 25 units/L 15-37 N SGPT/ALT (test code = ALT) 26 units/L 12-78 N ALKALINE PHOSPHATASE TOTAL (test 115 units/L 46-116 N code = ALKP) CBC W/AUTO [id number] 00:49:00 Test Item Value Reference Range Interpretation Comments WHITE BLOOD CELL (test code = WBC) 11.0 K/mm3 6.5-12.3 N RED BLOOD CELL (test code = RBC) 3.79 M/mm3 3.51-4.69 N HEMOGLOBIN (test code = HGB) 10.8 g/dL 10.1-13.8 N HEMATOCRIT (test code = HCT) 34.6 % 32.5-41.8 N MEAN CELL VOLUME (test code = MCV) 91.3 fL 84.6-96.6 N MEAN CELL HGB (test code = MCH) 28.5 pg 27.3-33.9 N MEAN CELL HGB CONCETRATION (test 31.2 gm/dL 32.0-34.2 L code = MCHC) RED CELL DISTRIBUTION WIDTH (test 15.3 % 12.2-16.3 N code = RDW) PLATELET COUNT (test code = PLT) 287 K/mm3 134-363 N MEAN PLATELET VOLUME (test code = 10.9 fL 9.2-12.7 N MPV) NEUTROPHIL % (test code = NT%) 61.3 % 57.9-77.3 N LYMPHOCYTE % (test code = LY%) 28.2 % 14.5-29.7 N MONOCYTE % (test code = MO%) 7.8 % 3.6-10.2 N EOSINOPHIL % (test code = EO%) 1.9 % 0.0-3.0 N BASOPHIL % (test code = BA%) 0.2 % 0.1-0.9 N NEUTROPHIL # (test code = NT#) 6.8 K/mm3 LYMPHOCYTE # (test code = LY#) 3.1 K/mm3 MONOCYTE # (test code = MO#) 0.9 K/mm3 EOSINOPHIL # (test code = EO#) 0.21 K/mm3 BASOPHIL # (test code = BA#) 0.0 K/mm3 RBC MORPHOLOGY REQUIRED (test code NORMAL NORMAL = RBCM) PLATELET MORPHOLOGY REQUIRED (test NORMAL NORMAL code = PLTMR) UA RFLX MICR CULT IF [id number] 23:37:00 Test Item Value Reference Range Interpretation Comments UA COLOR (test code = COLU) SHELL YELLOW A UA APPEARANCE (test code = CLOUDY CLEAR A APPU) UA GLUCOSE DIPSTICK (test code 1+ NEG A = DGLUU) UA BILIRUBIN DIPSTICK (test NEGATIVE NEG code = BILU) UA KETONE DIPSTICK (test code TRACE NEG A = KETU) UA SPECIFIC GRAVITY (test code 1.031 1.001-1.035 N = SGU) UA BLOOD DIPSTICK (test code = NEG NEG DAYANNA) UA PH DIPSTICK (test code = 5.0 5-9 CISCO) UA PROTEIN DIPSTICK (test code 1+ NEG A = PROU) UA UROBILINIOGEN DIPSTICK 2.0 mg/dL NEG (test code = URO) UA NITRITE DIPSTICK (test code NEG NEG = SUDHA) UA LEUKOCYTE ESTERASE DIPSTICK NEG NEG (test code = LEUU) UA WBC (test code = WBCU) 6-10 #/hpf NONE SEEN A UA RBC (test code = RBCU) 3-5 #/hpf NONE SEEN A UA EPITHELIAL CELLS (test code MODERATE #/HPF RARE-FEW A = EPIU) UA BACTERIA (test code = BACU) MANY /HPF RARE-FEW A UA MUCUS (test code = MUCU) 4+ NONE SEEN Indication for culture: Suprapubic PainSpecimen Description: CLEAN CATCH URINALYSIS [id number] 23:06:00 Test Item Value Reference Range Interpretation Comments UA COLOR (test code = COLU) COLORLESS YELLOW UA APPEARANCE (test code = CLEAR CLEAR APPU) UA GLUCOSE DIPSTICK (test code NEGATIVE NEG = DGLUU) UA BILIRUBIN DIPSTICK (test NEGATIVE NEG code = BILU) UA KETONE DIPSTICK (test code NEGATIVE NEG = KETU) UA SPECIFIC GRAVITY (test code 1.001 1.001-1.035 N = SGU) UA BLOOD DIPSTICK (test code = NEG NEG DAYANNA) UA PH DIPSTICK (test code = 6.0 5-9 CISCO) UA PROTEIN DIPSTICK (test code NEGATIVE NEG = PROU) UA UROBILINIOGEN DIPSTICK NEGATIVE mg/dL NEG (test code = URO) UA NITRITE DIPSTICK (test code NEG NEG = SUDHA) UA LEUKOCYTE ESTERASE DIPSTICK NEG NEG (test code = LEUU) UA WBC (test code = WBCU) 0-2 #/hpf NONE SEEN UA EPITHELIAL CELLS (test code RARE #/HPF RARE-FEW = EPIU) UA BACTERIA (test code = BACU) RARE /HPF RARE-FEW Specimen Comment: LDO IURINE SAMPLE: CLEAN CATCHIndication for culture: Suprapubic PainSpecimen Description: CLEAN CATCH
[2021-01-24 02:51] LABS: Basophils % 0.7 % (0-1.3); Hematocrit 23.5 % (36.0-45.0); Lymphocytes % 36.5 % (15.3-44.8); MPV 8.2 fL (7.6-11.3); RBC Red Blood Cell Count 2.88 M/uL (3.86-4.86)
[2021-01-24 03:06] LABS: ALT/SGPT 28 U/L (12-78); AST/SGOT 13 U/L (15-37); Alkaline Phosphatase 156 U/L (45-117); BUN Blood Urea Nitrogen 11 mg/dL (7-18); Bicarbonate 27 mmol/L (21-32); Bilirubin Direct < 0.1 mg/dL (0-0.2); Bilirubin Total 0.3 mg/dL (0.2-1.0); Glucose Level 94 mg/dL (74-106); Lipase 100 U/L (73-393); Potassium 3.7 mmol/L (3.5-5.1); Protein, Total 7.1 g/dL (6.4-8.2); Sodium Level 142 mmol/L (136-145)
[2021-01-24] MEDS ORDERED: ONDANSETRON 4 MG/2 ML VIAL ONE (04:30)
[2021-01-24] MEDS ORDERED: MORPHINE 4 MG/ML SYR ONE (04:30)
[2021-01-24] MEDS ORDERED: NA CHLORIDE 0.9% 250 ML ONE (07:53)
--- NOTE | 2021-01-24 07:56 | ER ---
Nurse's Notes [facility] Name: Kianna Frost Age: 25 yrs Sex: Female : 1995 Arrival Date: 01/24/2021 Time: 01:30 Bed 14 Private MD: Diagnosis: Anemia, unspecified;Lower abdominal pain, unspecified Presentation: 01/24 01:59 Chief complaint: Patient states: she gave about 3 weeks ago by and has bb been having abdominal pain on and off since then but tonight she had a really sharp pain which took her to the ground she has had vaginal bleeding since then but today passed a "massive clot". Coronavirus screen: At this time, the client does not indicate any symptoms associated with coronavirus-19. Ebola Screen: No symptoms or risks identified at this time. Initial Sepsis Screen: Does the patient meet any 2 criteria? No. Patient's initial sepsis screen is negative. Does the patient have a suspected source of infection? No. Patient's initial sepsis screen is negative. Risk Assessment: Do you want to hurt yourself or someone else? Patient reports no desire to harm self or others. Onset of symptoms was November 2020. 01:59 Method Of Arrival: Ambulatory bb 01:59 Acuity: STEPHANY 3 bb Triage Assessment: 02:04 General: Appears in no apparent distress. Behavior is calm, cooperative. Pain: bb Complains of pain in abdomen Pain currently is 3 out of 10 on a pain scale. Neuro: Level of Consciousness is awake, alert, obeys commands, Oriented to person, place, time, situation. Cardiovascular: No deficits noted. Respiratory: Respiratory effort is even, unlabored, Respiratory pattern is regular. GI: Reports lower abdominal pain, Patient currently denies diarrhea, vomiting. Derm: Skin is pale. Musculoskeletal: Circulation, motion, and sensation intact. 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 - Social history:: Smoking status: Reported history of juuling and/or vaping. - Family history:: not pertinent. - Hospitalizations: : No recent hospitalization is reported. Screenin:19 Abuse screen: Denies threats or abuse. Nutritional screening: No deficits noted. ea Tuberculosis screening: No symptoms or risk factors identified. Fall Risk None identified. Assessment: 03:00 General: Appears uncomfortable, Behavior is appropriate for age. Pain: Complains of ea pain in back. Neuro: Level of Consciousness is awake, alert, obeys commands, Oriented to person, place, time. Cardiovascular: Patient's skin is warm and dry. Respiratory: Airway is patent Respiratory effort is even, unlabored, Respiratory pattern is regular, symmetrical. Derm: Skin is dry, Skin is pale, Skin temperature is warm. 04:25 Reassessment: Patient and/or family updated on plan of care and expected duration. Pain ea level reassessed. Patient is alert, oriented x 3, equal unlabored respirations, skin warm/dry/pink. 06:00 Reassessment: Patient and/or family updated on plan of care and expected duration. Pain ea level reassessed. Patient is alert, oriented x 3, equal unlabored respirations, skin warm/dry/pink. 07:20 Reassessment: Patient appears in no apparent distress at this time. Patient and/or em family updated on plan of care and expected duration. Pain level reassessed. 08:00 Reassessment: blood transfusion initiated, instructed pt to verbalize any chest pain, em shortness of breath of anything abnormal, pt understands, at bedside. 08:23 Reassessment: pending discharge after completion of blood products, pt was instructed em to follow up with OB or to return to ED if symptoms become worse. 09:50 Reassessment: Patient appears in no apparent distress at this time. Patient and/or em family updated on plan of care and expected duration. Pain level reassessed. transfusion complete. Vital Signs: 01:59 BP 114 / 66; Pulse 96; Resp 20; Temp 98.5(O); Pulse Ox 100% on R/A; Weight 107.95 kg bb (R); Height 5 ft. 8 in. (172.72 cm) (R); Pain 3/10; 04:24 BP 110 / 66; Pulse 90; Resp 18; Pulse Ox 99% on R/A; ea 05:00 BP 105 / 79; Pulse 73; Resp 18; Pulse Ox 99% ; ea 06:00 BP 109 / 79; Pulse 80; Resp 18; Pulse Ox 98% ; ea 07:50 BP 104 / 78; Pulse 79; Resp 18; Temp 97.6; Pulse Ox 97% on R/A; em 01:59 Body Mass Index 36.19 (107.95 kg, 172.72 cm) bb ED Course: 01:30 Patient arrived in ED. bp1 02:02 Triage completed. bb 02:04 Arm band placed on. Family accompanied patient. bb 02:09 Antonio Knutson MD is Attending Physician. rn 02:18 Lenka Zaragoza RN is Primary Nurse. ea 02:19 Patient has correct armband on for positive identification. Bed in low position. Call ea light in reach. Side rails up X2. 03:00 Inserted saline lock: 20 gauge in right antecubital area, using aseptic technique. ea Blood collected. 04:02 CT Abd/Pelvis - IV Contrast Only In Process Unspecified. EDMS 05:10 initiated a transfer with Viviana from [facility]. mw2 07:20 Consent for blood and/or blood product transfusion explained by staff, signed by em patient. 10:21 No provider procedures requiring assistance completed. IV discontinued, intact, em bleeding controlled, No redness/swelling at site. Pressure dressing applied. Administered Medications: No medications were administered Outcome: 07:55 Discharge ordered by . rn 10:21 Discharged to home via wheelchair, with family. em 10:21 Condition: stable 10:21 Discharge instructions given to patient, family, Instructed on discharge instructions, follow up and referral plans. Demonstrated understanding of instructions, follow-up care. 10:22 Patient left the ED. em Signatures: Dispatcher [employer] EDMS Femi Horton RN RN em Ballard, Brenda RN Antonio Ruth MD MD rn Antunez, Elena, RN RN ea [place]brook, MyKena mw2 Daphnie Abbott bp1
--- NOTE | 2021-01-24 07:56 | EDPHYS ---
Physician Documentation [facility] Name: Kianna Frost Age: 25 yrs Sex: Female : 1995 Arrival Date: 01/24/2021 Time: 01:30 Bed 14 Private MD: ED Physician Antonio Knutson HPI: 01/24 05:10 This 25 yrs old Female presents to ER via Ambulatory with complaints of rn Abdominal Pain. 05:10 The patient presents with abdominal pain in the left lower quadrant. Onset: The rn symptoms/episode began/occurred just prior to arrival. The symptoms do not radiate. Associated signs and symptoms: Pertinent positives: vaginal bleeding, Pertinent negatives: nausea and vomiting, blood in stools, diarrhea, dysuria, fever, hematuria, shortness of breath. The symptoms are described as intermittent, sharp. Modifying factors: The symptoms are alleviated by nothing, the symptoms are aggravated by nothing. Severity of pain: At its worst the pain was moderate in the emergency department the pain has improved. The patient has not experienced similar symptoms in the past. Reports abdominal pain, lower abd/LLQ, non-radiating, reports 3 weeks s/p at [facility] at 36 weeks. Reports complication of anemia/hemorrhage, transfused 1 unit of blood. Reports still bleeding, some days light, then some days heavier. Today when abd pain hit, passed 2 moderate sized clots, red. Denies fever. no trauma. . 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 - Social history:: Smoking status: Reported history of juuling and/or vaping. - Family history:: not pertinent. - Hospitalizations: : No recent hospitalization is reported. ROS: 05:10 Constitutional: Negative for fever, chills, and weight loss, Eyes: Negative for injury, rn pain, redness, and discharge, Cardiovascular: Negative for chest pain, palpitations, and edema, Respiratory: Negative for shortness of breath, cough, wheezing, and pleuritic chest pain, Abdomen/GI: Negative for nausea, vomiting, diarrhea, and constipation, Back: Negative for injury and pain, : + vaginal bleeding MS/Extremity: Negative for injury and deformity, Skin: Negative for injury, rash, and discoloration, Neuro: Negative for headache, numbness, tingling, and seizure, + generalized weakness and fatigue Exam: 05:10 Constitutional: This is a well developed, well nourished patient who is awake, alert, rn and in no acute distress. Head/Face: Normocephalic, atraumatic. Eyes: Pupils equal round and reactive to light, extra-ocular motions intact Cardiovascular: Regular rate and rhythm. No pulse deficits. Respiratory: No increased work of breathing, no retractions or nasal flaring. Abdomen/GI: soft, + mild suprapubic and LLQ tenderness, no rebound, lower scar c/d/i Skin: Warm, dry, appears pale MS/ Extremity: Pulses equal, no cyanosis. Neuro: Awake and alert, GCS 15 Vital Signs: 01:59 BP 114 / 66; Pulse 96; Resp 20; Temp 98.5(O); Pulse Ox 100% on R/A; Weight 107.95 kg bb (R); Height 5 ft. 8 in. (172.72 cm) (R); Pain 3/10; 04:24 BP 110 / 66; Pulse 90; Resp 18; Pulse Ox 99% on R/A; ea 05:00 BP 105 / 79; Pulse 73; Resp 18; Pulse Ox 99% ; ea 06:00 BP 109 / 79; Pulse 80; Resp 18; Pulse Ox 98% ; ea 07:50 BP 104 / 78; Pulse 79; Resp 18; Temp 97.6; Pulse Ox 97% on R/A; em 01:59 Body Mass Index 36.19 (107.95 kg, 172.72 cm) bb MDM: 02:09 Patient medically screened. rn 05:52 Differential diagnosis: non-specific abd pain, Ureterolithiasis, post rn complication, UTI, nonspecific abd pain, pain for involuting uterus. Data reviewed: vital signs, nurses notes, lab test result(s), radiologic studies, CT scan. ED course: [facility], she states their protocol doesn't transfuse until below 7, expects 6 weeks of bleeding, and doesn't believe patient needs to be transferred just for blood transfusion. Agrees with 1 unit blood if clinically needs it, but otherwise states this is outpt evaluation. I spoke with patient and significant other after consultation, they agree to 1 unit blood transfusion and will f/u as outpt. . 07:54 Counseling: I had a detailed discussion with the patient and/or guardian regarding: the rn historical points, exam findings, and any diagnostic results supporting the discharge/admit diagnosis, lab results, radiology results, the need for outpatient follow up, to return to the emergency department if symptoms worsen or persist or if there are any questions or concerns that arise at home. Response to treatment: the patient's symptoms have mildly improved after treatment. 01/24 02:10 Order name: Basic Metabolic Panel rn 01/24 02:10 Order name: CBC with Diff rn 01/24 02:10 Order name: Hepatic Function rn 01/24 02:10 Order name: Lipase; Complete Time: 03:35 rn 01/24 02:10 Order name: Basic Metabolic Panel; Complete Time: 03:35 EDCA 01/24 02:10 Order name: IV Saline Lock; Complete Time: 04:26 rn 01/24 02:10 Order name: Labs collected and sent; Complete Time: 04:26 rn 01/24 02:10 Order name: CT Abd/Pelvis - IV Contrast Only rn 01/24 02:11 Order name: CBC with Automated Diff; Complete Time: 03:35 EDCA 01/24 02:11 Order name: Liver (Hepatic) Function; Complete Time: 03:35 EDCA 01/24 04:52 Order name: Type And Screen rn 01/24 06:00 Order name: Packed RBC Leukored EDCA 01/24 08:03 Order name: Urine --Ancillary (enter results) bd 01/24 02:10 Order name: Urine Dipstick-Ancillary (obtain specimen); Complete Time: 08:18 rn Administered Medications: No medications were administered Disposition: 01/24/21 07:55 Discharged to Home. Impression: Anemia, unspecified, Lower abdominal pain, unspecified. - Condition is Stable. - Discharge Instructions: Abdominal Pain, Adult, Anemia, Nonspecific. - Medication Reconciliation Form, Thank You Letter, Antibiotic Education, Prescription Opioid Use form. - Follow up: Private Physician; When: As needed; Reason: Recheck today's complaints, Re-evaluation by your physician. - Problem is an ongoing problem. - Symptoms have improved. Signatures: Dispatcher [employer] Femi Pinzon, RN Heather Martinez RN RN bb Nieto, Roman, MD MD airborne electronics analyst: (The following items were deleted from the chart) 05:24 05:10 Constitutional: This is a well developed, well nourished patient who is awake, rn alert, and in no acute distress. Head/Face: Normocephalic, atraumatic. Eyes: Pupils equal round and reactive to light, extra-ocular motions intact Cardiovascular: Regular rate and rhythm. No pulse deficits. Respiratory: No increased work of breathing, no retractions or nasal flaring. Abdomen/GI: soft, + mild suprapubic and LLQ tenderness, no rebound Skin: Warm, dry, appears pale MS/ Extremity: Pulses equal, no cyanosis. Neuro: Awake and alert, GCS 15 rn 10:22 07:55 01/24/2021 07:55 Discharged to Home. Impression: Anemia, unspecified; Lower em abdominal pain, unspecified. Condition is Stable. Forms are Medication Reconciliation Form, Thank You Letter, Antibiotic Education, Prescription Opioid Use. Follow up: Private Physician; When: As needed; Reason: Recheck today's complaints, Re-evaluation by your physician. Problem is an ongoing problem. Symptoms have improved. rn
[2021-01-24 10:49] VITALS: BP 104/78; TEMP 97.6; O2SAT 97
--- NOTE | 2021-01-24 10:55 | RAD REPORT ---
EXAM DESCRIPTION: CT - Abdomen Pelvis W Contrast - 01/24/2021 6:20 am CLINICAL HISTORY: The patient is 25 years old and is Female; 3 weeks s/p csection, lower abd pain TECHNIQUE: Axial computed tomography images of the abdomen and pelvis with intravenous contrast. S agittal and coronal reformatted images were created and reviewed. This CT exam was performed using one or more of the following dose reduction techniques: automated exposure control, adjustment of t he mA and/or kV according to patient size, and/or use of iterative reconstruction technique. COMPARISON: No relevant prior studies available. FINDINGS: Lung bases: Unremarkable. No mass. No consolidation. ABDOMEN: Liver: The liver is enlarged. Gallbladder and bile ducts: Unremarkable. No calcified stones. No ductal dilation. Pancreas: Unremarkable. No mass. No ductal dilation. Spleen: Unremarkable. No splenomegaly. Adrenals: Unremarkable. No mass. Kidneys and ureters: Unremarkable. No solid mass. No hydronephrosis. Stomach and bowel: Unremarkable. No obstruction. No mucosal thickening. PELVIS: Appendix: No findings to suggest acute appendicitis. Bladder: Unremarkable. No mass. Reproductive: Heterogeneous appearance to the uterus/endometrium. ABDOMEN and PELVIS: Intraperitoneal space: Midline surgical scar in the lower abdomen. No free air. No significant fluid collection. Bones/joints: No acute fracture. No dislocation. Soft tissues: Unremarkable. Vasculature: Unremarkable. No abdominal aortic aneurysm. Lymph nodes: Unremarkable. No enlarged lymph nodes. IMPRESSION: 1. Midline surgical scar in the lower abdomen. 2. Heterogeneous appearance to the uterus/endometrium. Consider pelvic ultrasound for further yenny luation if clinically indicated. 3. The liver is enlarged. Electronically signed by: Estevan Singh MD 01/24/2021 4:36 AM CDT Due to temporary technical issues with the PACS/Fluency reporting system, reports are being signed by the in house radiologist without review as a courtesy to ensure prompt reporting. The interpreting r adiologist is fully responsible for the content of the report.
== END 2021-01-24 10:22 | disposition home or self-care (01) ==
LOC: ER 01:27
PROC: 30233N1 Transfusion of Nonautologous Red Blood Cells into Peripheral Vein, Percutaneous Approach (ICD-10-PCS; principal; 2021-01-24)
DX: D64.9 Anemia, unspecified (principal); F31.9 Bipolar disorder, unspecified
CPT/HCPCS: 85025; 80048; 36415; 86900; 86850; 81025; 86901; 80076; 83690; 74177; 36430; Q9967; P9016; J7050; J2405; 99284

== ENCOUNTER 2021-02-04 01:16 | Emergency (ER) | payer OTHER ==
--- OUTSIDE RECORDS SUMMARY | 2021-02-04 01:20 | XMS REPORT | Continuity of Care Document ---
:1995 Author Organization [facility] t Address [address] [place] [address] Dr. Ferrera. [address] [place] [address] Care Team Providers Name Role Phone [place] [...] Known DA Active U [facility] 00:00: [address] Medications This patient has no known medications. Procedures This patient has no known procedures. Encounters Start End Encounter Admission Attending Care Care Encounter Source Date/Time Date/Time Type Type Clinicians Facility Department ID 2020-07-18 2020-07-18 Ines Whitehead [facility] [id number] 02:20:00 05:24:00 Ino Sy [id number] [place] [id number] [place] [id number] 2019-04-17 2019-04-17 Hospital Radiology [facility] [id number] 13:12:28 23:59:00 Encounter Kerrie [id number] [place] [id number] [place] [id number] 2019-04-17 2019-04-17 Orders Doctor DIANNE [id number] 00:00:00 00:00:00 Only Unassigned, ELLI [id number] [facility] [id number] Results Test Description Test Time Test Comments Results Result Comments Source GLUBED 2021-01-06 13:16:00 Test Item Value Reference Range Interpretation Comme nts GLUBED (test code = GLUBED) 73 mg/dL 65-110 N [id number] 06:19:00 Test Item Value Reference Range Interpretation Comments GLUBED (test code = GLUBED) 74 mg/dL 65-110 N [id number] 22:04:00 Test Item Value Reference Range Interpretation Comments GLUBED (test code = GLUBED) 95 mg/dL 65-110 N [id number] 15:58:00 Test Item Value Reference Range Interpretation Comments GLUBED (test code = GLUBED) 111 mg/dL 65-110 H [id number] 12:32:00 Test Item Value Reference Range Interpretation Comments GLUBED (test code = GLUBED) 119 mg/dL 65-110 H [id number] 06:11:00 Test Item Value Reference Range Interpretation Comments GLUBED (test code = GLUBED) 95 mg/dL 65-110 N UA RFLX MICR CULT IF [id number] 15:28:00 Test Item Value Reference Range Interpretation [...] Indication for culture: Dysuria/FrequencySpecimen Description: CLEAN CATCH [id number] 15:26:00 Test Item Value Reference Range Interpretation Comments GLUBED (test code = GLUBED) 102 mg/dL 65-110 N [id number] 12:39:00 Test Item Value Reference Range Interpretation Comments GLUBED (test code = GLUBED) 132 mg/dL 65-110 H HGB [id number] 07:23:00 Test Item Value Reference Range Interpretation Comments HEMOGLOBIN (test code = HGB) 7.9 g/dL 10.1-13.8 L HEMATOCRIT (test code = HCT) 25.4 % 32.5-41.8 L [id number] 06:08:00 Test Item Value Reference Range Interpretation Comments GLUBED (test code = GLUBED) 67 mg/dL 65-110 N [id number] 21:38:00 Test Item Value Reference Range Interpretation Comments GLUBED (test code = GLUBED) 92 mg/dL 65-110 N [id number] 16:45:00 Test Item Value Reference Range Interpretation Comments GLUBED (test code = GLUBED) 91 mg/dL 65-110 N COMPREHENSIVE METABOLIC [id number] 10:27:00 Test Item Value Reference Range Interpretation [...] units/L 46-116 H code = ALKP) PROTHROMBIN [id number] 10:12:00 Test Item Value Reference Range Interpretation Comments PROTHROMBIN TIME PATIENT (test code 10.9 secs 10.4-12.4 N = PTP) THROMBOPLASTIN TIME [id number] 10:12:00 Test Item Value Reference Range Interpretation Comments THROMBOPLASTIN TIME PARTIAL (test 24.9 secs 22-38 N code = PTT) [id number] 10:12:00 Test Item Value Reference Range Interpretation Comments FIBRINOGEN (test code = FIB) 573 mg/dL 309-518 H CBC W/AUTO [id number] 09:48:00 Test Item Value Reference Range Interpretation [...] REQUIRED (test code = PLTMR) COMPREHENSIVE METABOLIC [id number] 06:32:00 Test Item Value Reference Range Interpretation [...] 46-116 H code = ALKP) Comments to Formal Wear Rental Clerk: SPECIMEN IN LAB [facility] W/AUTO [id number] 05:59:00 Test Item Value Reference Range Interpretation [...] NORMAL NORMAL code = PLTMR) Comments to Formal Wear Rental Clerk: SPECIMEN IN LAB [id number] 20:49:00 Test Item Value Reference Range Interpretation Comments GLUBED (test code = GLUBED) 130 mg/dL 65-110 H [id number] 16:24:00 Test Item Value Reference Range Interpretation Comments GLUBED (test code = GLUBED) 86 mg/dL 65-110 N [id number] 11:54:00 Test Item Value Reference Range Interpretation Comments GLUBED (test code = GLUBED) 93 mg/dL 65-110 N [id number] 06:11:00 Test Item Value Reference Range Interpretation Comments GLUBED (test code = GLUBED) 73 mg/dL 65-110 N [id number] 20:42:00 Test Item Value Reference Range Interpretation Comments GLUBED (test code = GLUBED) 133 mg/dL 65-110 H [id number] 17:24:00 Test Item Value Reference Range Interpretation Comments GLUBED (test code = GLUBED) 107 mg/dL 65-110 N [id number] 11:32:00 Test Item Value Reference Range Interpretation Comments GLUBED (test code = GLUBED) 96 mg/dL 65-110 N [id number] 10:53:00 Test Item Value Reference Range Interpretation Comments GLUBED (test code = GLUBED) 143 mg/dL 65-110 H URINALYSIS [id number] 09:35:00 Test Item Value Reference Range Interpretation [...] MUCU) RARE NONE SEEN URINE SAMPLE: CLEAN [id number] 06:17:00 Test Item Value Reference Range Interpretation Comments GLUBED (test code = GLUBED) 100 mg/dL 65-110 N [id number] 20:40:00 Test Item Value Reference Range Interpretation Comments GLUBED (test code = GLUBED) 127 mg/dL 65-110 H [id number] 16:44:00 Test Item Value Reference Range Interpretation Comments GLUBED (test code = GLUBED) 103 mg/dL 65-110 N [id number] 13:27:00 Test Item Value Reference Range Interpretation Comments GLUBED (test code = GLUBED) 85 mg/dL 65-110 N Phsician Notified [id number] 06:10:00 Test Item Value Reference Range Interpretation Comments GLUBED (test code = GLUBED) 100 mg/dL 65-110 N [id number] 21:19:00 Test Item Value Reference Range Interpretation Comments GLUBED (test code = GLUBED) 176 mg/dL 65-110 H [id number] 16:51:00 Test Item Value Reference Range Interpretation Comments GLUBED (test code = GLUBED) 135 mg/dL 65-110 H [id number] 11:16:00 Test Item Value Reference Range Interpretation Comments GLUBED (test code = GLUBED) 173 mg/dL 65-110 H [id number] 06:13:00 Test Item Value Reference Range Interpretation Comments GLUBED (test code = GLUBED) 148 mg/dL 65-110 H [id number] 22:43:00 Test Item Value Reference Range Interpretation Comments GLUBED (test code = GLUBED) 170 mg/dL 65-110 H [id number] 15:40:00 Test Item Value Reference Range Interpretation Comments GLUBED (test code = GLUBED) 135 mg/dL 65-110 H [id number] 10:59:00 Test Item Value Reference Range Interpretation Comments GLUBED (test code = GLUBED) 130 mg/dL 65-110 H [id number] 05:53:00 Test Item Value Reference Range Interpretation Comments GLUBED (test code = GLUBED) 101 mg/dL 65-110 N UR PROTEIN/CREATININE [id number] 22:39:00 Test Item Value Reference Range Interpretation Comments UR PROTEIN RANDOM (test code = 30.5 mg/dL PROTU) UR CREATININE RANDOM (test 104.1 mg/dL code = CREATU) PROTEIN/CREATININE RATIO (test 292.9 mg/gcrea <200 H code = P/CRATIO) [id number] 21:42:00 Test Item Value Reference Range Interpretation Comments GLUBED (test code = GLUBED) 85 mg/dL 65-110 N AG HEPATITIS B [id number] 20:25:00 Test Item Value Reference Range Interpretation Comments AG HEPATITIS B SURFACE (test code NONREACTIVE NONREACTIVE = HBSAG) IS CONSENT FORM SIGNED FOR HIV TESTING? YAB HEPATITIS C [id number] 20:25:00 Test Item Value Reference Range Interpretation Comments AB HEPATITIS C (test code = NONREACTIVE NONREACTIVE HCVAB) SIGNAL TO CUTOFF (test code = 0.06 <0.80 N CUTOFF) IS CONSENT FORM SIGNED FOR HIV TESTING? YAB [id number] 20:25:00 Test Item Value Reference Range Interpretation Comments AB TREPONEMA (test code = TREPAB) NONREACTIVE NONREACTIVE IS CONSENT FORM SIGNED FOR HIV TESTING? YAB HIV 1 20:25:00 Test Item Value Reference Range Interpretation Comments AB HIV 1 2 (test NONREACTIVE NONREACTIVE Done by [facility] code = [id number]) 4th Gen HIV Ag/Ab Combo Screen IS CONSENT FORM SIGNED FOR HIV TESTING? YAG HEPATITIS B [id number] 19:57:00 Test Item Value Reference Range Interpretation Comments AG HEPATITIS B SURFACE (test code NONREACTIVE NONREACTIVE = HBSAG) IS CONSENT FORM SIGNED FOR HIV TESTING? YAB HEPATITIS C [id number] 19:57:00 Test Item Value Reference Range Interpretation Comments AB HEPATITIS C (test code = HCVAB) NONREACTIVE SIGNAL TO CUTOFF (test code = CUTOFF) <0.80 IS CONSENT FORM SIGNED FOR HIV TESTING? YAB [id number] 19:57:00 Test Item Value Reference Range Interpretation Comments AB TREPONEMA (test code = TREPAB) NONREACTIVE NONREACTIVE IS CONSENT FORM SIGNED FOR HIV TESTING? YAB HIV 1 19:57:00 Test Item Value Reference Range Interpretation Comments AB HIV 1 2 (test code = SPG98SI) NONREACTIVE IS CONSENT FORM SIGNED FOR HIV TESTING? YCOVID 19 Asymptomatic IH [id number] 19:35:00 Test Item Value Reference Range Interpretation [...] and/o r diagnosis of CO VID-19 under Aeawyom20 4(b)(1) of the Act, 21 U.S .C. 360bbb-3(b)(1), unless theauthorizatio n is terminated or r evoked sooner. COMPREHENSIVE METABOLIC [id number] 19:29:00 Test Item Value Reference Range Interpretation [...] 46-116 H code = ALKP) CBC W/AUTO [id number] 19:08:00 Test Item Value Reference Range Interpretation [...] REQUIRED (test NORMAL NORMAL code = PLTMR) [id number] 11:21:00 Test Item Value Reference Range Interpretation Comments GLUBED (test code = GLUBED) 117 mg/dL 65-110 H [id number] 06:19:00 Test Item Value Reference Range Interpretation Comments GLUBED (test code = GLUBED) 78 mg/dL 65-110 N [id number] 21:31:00 Test Item Value Reference Range Interpretation Comments GLUBED (test code = GLUBED) 76 mg/dL 65-110 N [id number] 19:26:00 Test Item Value Reference Range Interpretation Comments GLUBED (test code = GLUBED) 80 mg/dL 65-110 N [id number] 15:12:00 Test Item Value Reference Range Interpretation Comments GLUBED (test code = GLUBED) 114 mg/dL 65-110 H [id number] 05:47:00 Test Item Value Reference Range Interpretation Comments GLUBED (test code = GLUBED) 100 mg/dL 65-110 N [id number] 22:55:00 Test Item Value Reference Range Interpretation Comments GLUBED (test code = GLUBED) 134 mg/dL 65-110 H [id number] 21:37:00 Test Item Value Reference Range Interpretation Comments GLUBED (test code = GLUBED) 133 mg/dL 65-110 H [id number] 16:51:00 Test Item Value Reference Range Interpretation Comments GLUBED (test code = GLUBED) 90 mg/dL 65-110 N [id number] 12:25:00 Test Item Value Reference Range Interpretation Comments GLUBED (test code = GLUBED) 130 mg/dL 65-110 H [id number] 06:39:00 Test Item Value Reference Range Interpretation Comments GLUBED (test code = GLUBED) 98 mg/dL 65-110 N [id number] 21:02:00 Test Item Value Reference Range Interpretation Comments GLUBED (test code = GLUBED) 114 mg/dL 65-110 H [id number] 14:53:00 Test Item Value Reference Range Interpretation Comments GLUBED (test code = GLUBED) 123 mg/dL 65-110 H [id number] 11:33:00 Test Item Value Reference Range Interpretation Comments GLUBED (test code = GLUBED) 125 mg/dL 65-110 H COMPREHENSIVE METABOLIC [id number] 05:45:00 Test Item Value Reference Range Interpretation [...] be considered for these patients. GLYCOSYLATED HEMOGLOBIN [id number] 05:05:00 Test Item Value Reference Range Interpretation [...] MG/DL 70-110 H (test code = MBG) [id number] 23:36:00 Test Item Value Reference Range Interpretation Comments GLUBED (test code = GLUBED) 103 mg/dL 65-110 N COVID 19 Asymptomatic IH [id number] 22:44:00 Test Item Value Reference Range Interpretation [...] and/o r diagnosis of CO VID-19 under Vemhjbx70 4(b)(1) of the Act, 21 U.S .C. 360bbb-3(b)(1), unless theauthorizatio n is terminated or r evoked sooner. [id number] 21:24:00 Test Item Value Reference Range Interpretation Comments GLUCOSE (test code = GLU) 106 mg/dL 65-110 N Comments to Formal Wear Rental Clerk: PLEASE USE PREVIOUS SAMPLEAG HEPATITIS B SURFACE 2020-12-08 19:03:00 Test Item Value Reference Range Interpretation Comments AG HEPATITIS B SURFACE (test code NONREACTIVE NONREACTIVE = HBSAG) IS CONSENT FORM SIGNED FOR HIV TESTING? YAB HEPATITIS C [id number] 19:03:00 Test Item Value Reference Range Interpretation Comments AB HEPATITIS C (test code = NONREACTIVE NONREACTIVE HCVAB) SIGNAL TO CUTOFF (test code = 0.03 <0.80 N CUTOFF) IS CONSENT FORM SIGNED FOR HIV TESTING? YAB [id number] 19:03:00 Test Item Value Reference Range Interpretation Comments AB TREPONEMA (test code = TREPAB) NONREACTIVE NONREACTIVE IS CONSENT FORM SIGNED FOR HIV TESTING? YAB HIV 1 19:03:00 Test Item Value Reference Range Interpretation Comments AB HIV 1 2 (test NONREACTIVE NONREACTIVE Done by Tayo Crookr code = [id number]) 4th Gen HIV Ag/Ab Combo Screen IS CONSENT FORM SIGNED FOR HIV TESTING? YAG HEPATITIS B [id number] 17:47:00 Test Item Value Reference Range Interpretation Comments AG HEPATITIS B SURFACE (test code NONREACTIVE NONREACTIVE = HBSAG) IS CONSENT FORM SIGNED FOR HIV TESTING? YAB HEPATITIS C [id number] 17:47:00 Test Item Value Reference Range Interpretation Comments AB HEPATITIS C (test code = HCVAB) NONREACTIVE SIGNAL TO CUTOFF (test code = CUTOFF) <0.80 IS CONSENT FORM SIGNED FOR HIV TESTING? YAB [id number] 17:47:00 Test Item Value Reference Range Interpretation Comments AB TREPONEMA (test code = TREPAB) NONREACTIVE NONREACTIVE IS CONSENT FORM SIGNED FOR HIV TESTING? YAB HIV 1 17:47:00 Test Item Value Reference Range Interpretation Comments AB HIV 1 2 (test code = ODB72WH) NONREACTIVE IS CONSENT FORM SIGNED FOR HIV TESTING? YCBC W/AUTO [id number] 17:17:00 Test Item Value Reference Range Interpretation [...] REQUIRED (test NORMAL NORMAL code = PLTMR) [id number] 14:55:00 Test Item Value Reference Range Interpretation Comments GLUBED (test code = GLUBED) 64 mg/dL 65-110 L - US FET BIO PH IA W/O [id number] 02:00:00 [facility] 1995 Sex: F Patient Name: TERRY FROST Unit No: [id number] EXAMS: CPT CODE: [id number] US FET BIO PH IA W/O NST 43068 STUDY: - US FET BIO PH IA W/O NST 11/25/2020 11:45 PM Ordering Physician: Michoacano Alvarez III, MD Patient Name: TERRY FROST MR: [id number] : 1995; Age: 24 years y/o Female [...] points. YASMIN 20.4 cm. 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-H [facility] NAME: TERRY FROST Radiology Department PHYS: Michoacano Bolton III, MD [address] : 1995 AGE: 24 SEX: F [place] [address] LOC: JORDANED PHONE #: [phone] EXAM DATE: 11/25/2020 STATUS: REG ER FAX #: [phone] RAD NO: Page 1 Signed Report (CONTINUED) Patient Name: TERRY FROST Unit No: [id number] EXAMS: CPT CODE: [id number] FET BIO PH IA W/O NST 28855 <Continued> at 0200 Reported and signed by: Hank Rodriguez MD CC: Nkechi Maravilla MD; Michoacano Alvarez III, MD Technologist: Bettie Bill RDMS Probe: Trnscrbd D/ (0200) t.[id number].TP6 Orig Print D/T: S: 021 (0216) [facility] NAME: TERRY FROST Radiology Department PHYS: Michoacano Bolton III, MD [address] : 1995 AGE: 24 SEX: [place] [address] LOC: BHAVNA PHONE #: [phone] EXAM DATE: 11/25/2020 STATUS: REG ER FAX #: [phone] RAD NO: Page 2 Signed Report Patient Name: TERRY FROST Unit No: [id number] EXAMS: CPT CODE: [id number] FET BIO PH IA W/O NST 03979 <Continued> [facility] NAME: TERRY FROST Radiology Department PHYS: Michoacano Bolton III, MD [address] : 1995 AGE: 24 SEX: [place] [address] LOC: МарияEVERETTE PHONE #: [phone] EXAM DATE: 11/25/2020 STATUS: REG ER FAX #: [phone] RAD NO: Page 3 Signed ReportFETAL [id number] 01:13:00 Test Item Value Reference Range Interpretation [...] 6 days o f gestation. COMPREHENSIVE METABOLIC [id number] 00:59:00 Test Item Value Reference Range Interpretation [...] 46-116 N code = ALKP) CBC W/AUTO [id number] 00:49:00 Test Item Value Reference Range Interpretation [...] = PLTMR) UA RFLX MICR CULT IF [id number] 23:37:00 Test Item Value Reference Range Interpretation [...] culture: Suprapubic PainSpecimen Description: CLEAN CATCH URINALYSIS [id number] 23:06:00 Test Item Value Reference Range Interpretation [...]
[2021-02-04 02:44] LABS: Absolute Lymphocytes (CBC) 1.5 K/uL (0.7-4.9); Basophils % 0.4 % (0-1.3); Hematocrit 27.2 % (36.0-45.0); Lymphocytes % 28.6 % (15.3-44.8); MPV 8.7 fL (7.6-11.3); RBC Red Blood Cell Count 3.36 M/uL (3.86-4.86)
[2021-02-04 02:48] LABS: Urine Blood 3+ (Negative); Urine Glucose Negative (Negative); Urine Protein Trace (Negative)
[2021-02-04 02:52] LABS: BUN Blood Urea Nitrogen 11 mg/dL (7-18); Bicarbonate 27 mmol/L (21-32); Glucose Level 105 mg/dL (74-106); Potassium 3.6 mmol/L (3.5-5.1); Sodium Level 140 mmol/L (136-145)
--- NOTE | 2021-02-04 04:10 | ER ---
Nurse's Notes [facility] Name: Kianna Frost Age: 25 yrs Sex: Female : 1995 Arrival Date: 02/04/2021 Time: 01:20 Bed 20 Private MD: Diagnosis: Abdominal and pelvic pain-post operative;Abnormal uterine and vaginal bleeding, unspecified;Anemia Presentation: 02/04 01:39 Chief complaint: Patient states: had a month ago, is having problems with her iw incision site, states it opened up and it has been bleeding. Had at [facility], f/u with her OB and was given some antibiotic but it's gotten worse. Coronavirus screen: At this time, the client does not indicate any symptoms associated with coronavirus-19. Ebola Screen: Patient negative for fever greater than or equal to 101.5 degrees Fahrenheit, and additional compatible Ebola Virus Disease symptoms Patient denies exposure to infectious person. Patient denies travel to an Ebola-affected area in the 21 days before illness onset. No symptoms or risks identified at this time. Initial Sepsis Screen: Does the patient meet any 2 criteria? No. Patient's initial sepsis screen is negative. Does the patient have a suspected source of infection? No. Patient's initial sepsis screen is negative. Risk Assessment: Do you want to hurt yourself or someone else? Patient reports no desire to harm self or others. Onset of symptoms was December 2020. 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 - Social history:: Smoking status: Patient denies any tobacco usage or history of. Screenin:18 Abuse screen: Denies threats or abuse. Denies injuries from another. Nutritional ad5 screening: No deficits noted. Tuberculosis screening: No symptoms or risk factors identified. Fall Risk None identified. Assessment: 01:51 General: Appears uncomfortable, Behavior is calm, cooperative, appropriate for age. ad5 Pain: Complains of pain in suprapubic area. Neuro: No deficits noted. Level of Consciousness is awake, alert, obeys commands, Oriented to person, place, time, situation, Appropriate for age Billing And Insurance Coordinator are equal bilaterally Moves all extremities. Gait is steady, Speech is normal, Facial symmetry appears normal. Cardiovascular: No deficits noted. Heart tones present Capillary refill < 3 seconds JVD is absent Patient's skin is warm and dry. Pulses are all present. Respiratory: No deficits noted. Airway is patent Respiratory effort is even, unlabored, Respiratory pattern is regular, symmetrical. GI: Abdomen is obese, Abd is soft and non tender X 4 quads. Reports lower abdominal pain, Pt reports lower abd pain/cramping and "yellow discharge" from surgical site after a month ago. Pt reports seen recently for same s/s, states received unit of blood at that time. Reports continued vaginal bleeding. : No deficits noted. Derm: Skin is intact, Skin is dry, Skin is pale, Skin temperature is warm. Musculoskeletal: No deficits noted. 02:48 Reassessment: Patient appears in no apparent distress at this time. No changes from ad5 previously documented assessment. Patient and/or family updated on plan of care and expected duration. Pain level reassessed. Patient is alert, oriented x 3, equal unlabored respirations, skin warm/dry/pink. Pt up to restroom, ambulatory with steady gait. Repositioned back into stretcher for comfort. Bed low and locked, bedrails x 2, call light within reach. Will continue to monitor. 03:51 Reassessment: Patient appears in no apparent distress at this time. No changes from ad5 previously documented assessment. Patient and/or family updated on plan of care and expected duration. Pain level reassessed. Patient is alert, oriented x 3, equal unlabored respirations, skin warm/dry/pink. 04:29 Reassessment: Patient appears in no apparent distress at this time. No changes from ad5 previously documented assessment. Patient and/or family updated on plan of care and expected duration. Pain level reassessed. Patient is alert, oriented x 3, equal unlabored respirations, skin warm/dry/pink. Vital Signs: 01:39 BP 121 / 69; Pulse 80; Resp 16; Temp 98.2; Pulse Ox 100% on R/A; Weight 108.86 kg; iw Height 5 ft. 8 in. (172.72 cm); 02:49 BP 112 / 69; Pulse 71; Resp 18 S; Pulse Ox 100% on R/A; ad5 03:53 BP 117 / 75; Pulse 68; Resp 17 S; Pulse Ox 100% on R/A; ad5 04:29 BP 115 / 74; Pulse 66; Resp 16 S; Pulse Ox 100% on R/A; ad5 01:39 Body Mass Index 36.49 (108.86 kg, 172.72 cm) iw ED Course: 01:20 Patient arrived in ED. es 01:42 Triage completed. iw 01:43 Arm band placed on. iw 01:44 Shahid Gonzalez is Primary Nurse. ad5 01:45 Bharath Gonzalez MD is Attending Physician. [facility] 02:18 Patient has correct armband on for positive identification. Placed in gown. Bed in low ad5 position. Call light in reach. Side rails up X 1. Pulse ox on. NIBP on. Door closed. Noise minimized. Warm blanket given. 02:47 No provider procedures requiring assistance completed. Inserted saline lock: 20 gauge ad5 in left antecubital area, using aseptic technique. 02:48 Initial lab(s) drawn, by me, sent to lab. Urine collected: clean catch specimen, blood ad5 tinged, sediment noted. 03:17 CT Abd/Pelvis - IV Contrast Only Sent. ad5 03:24 CT Abd/Pelvis - IV Contrast Only In Process Unspecified. EDMS 04:30 IV discontinued, intact, bleeding controlled, No redness/swelling at site. Pressure ad5 dressing applied. Administered Medications: No medications were administered Outcome: 04:09 Discharge ordered by MD. springer 04:30 Discharged to home ambulatory. ad5 04:30 Condition: stable 04:30 Discharge instructions given to patient, Instructed on discharge instructions, follow up and referral plans. Demonstrated understanding of instructions, follow-up care. 04:30 Patient left the ED. ad5 Signatures: Dispatcher [employer] EDMS Claudia Cabrera Irene, RN RN iw Bharath Gonzalez MD MD Shahid Miner ad5 Corrections: (The following items were deleted from the chart) 01:42 01:39 BP 121 / 9; Pulse 80bpm; Resp 16bpm; Pulse Ox 100% RA; Temp 98.2F; 108.86 kg; iw Height 5 ft. 8 in.; BMI: 36.4; iw 02:50 02:49 BP 153 / 81; Pulse 62bpm; Resp 18bpm; Spontaneous; Pulse Ox 96% RA; ad5 ad5
--- NOTE | 2021-02-04 04:10 | EDPHYS ---
Physician Documentation [facility] Name: Kianna Frost Age: 25 yrs Sex: Female : 1995 Arrival Date: 02/04/2021 Time: 01:20 Bed 20 Private MD: ED Physician Bharath Gonzalez HPI: 02/04 02:37 This 25 yrs old Female presents to ER via Ambulatory with complaints of Post mh7 Surgical Bleeding. 02:37 The patient presents with abdominal pain in the lower abdomen, at site of C Section. mh7 02:38 Onset: The symptoms/episode began/occurred 1 month(s) ago. The symptoms do not radiate. mh7 Associated signs and symptoms: Pertinent positives: vaginal bleeding, Pertinent negatives: nausea and vomiting, anorexia, blood in stools, chest pain, constipation, diarrhea, dysuria, fever, headache, hematuria, nausea, palpitations, shortness of breath, vomiting, vomiting blood. The symptoms are described as intermittent, sharp, waxing/waning. Modifying factors: The symptoms are alleviated by nothing, the symptoms are aggravated by movement. Severity of pain: At its worst the pain was moderate 10 day(s) ago, in the emergency department the pain has improved mildly. The patient has been recently seen at the [facility] Emergency Department, a couple of weeks ago. 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 - Social history:: Smoking status: Patient denies any tobacco usage or history of. ROS: 02:38 Constitutional: Negative for fever, chills, and weight loss, Eyes: Negative for injury, mh7 pain, redness, and discharge, ENT: Negative for injury, pain, and discharge, Neck: Negative for injury, pain, and swelling, Cardiovascular: Negative for chest pain, palpitations, and edema, Respiratory: Negative for shortness of breath, cough, wheezing, and pleuritic chest pain, Back: Negative for injury and pain, MS/Extremity: Negative for injury and deformity, Skin: Negative for injury, rash, and discoloration, Neuro: Negative for headache, weakness, numbness, tingling, and seizure, Psych: Negative for depression, anxiety, suicide ideation, homicidal ideation, and hallucinations, Allergy/Immunology: Negative for hives, rash, and allergies, Endocrine: Negative for neck swelling, polydipsia, polyuria, polyphagia, and marked weight changes, Hematologic/Lymphatic: Negative for swollen nodes, abnormal bleeding, and unusual bruising. Exam: 02:38 Constitutional: This is a well developed, well nourished patient who is awake, alert, mh7 and in no acute distress. Head/Face: Normocephalic, atraumatic. Eyes: Pupils equal round and reactive to light, extra-ocular motions intact. Lids and lashes normal. Conjunctiva and sclera are non-icteric and not injected. Cornea within normal limits. Periorbital areas with no swelling, redness, or edema. Neck: Trachea midline, no thyromegaly or masses palpated, and no cervical lymphadenopathy. Supple, full range of motion without nuchal rigidity, or vertebral point tenderness. No Meningismus. Chest/axilla: Normal chest wall appearance and motion. Nontender with no deformity. No lesions are appreciated. Cardiovascular: Regular rate and rhythm with a normal S1 and S2. No gallops, murmurs, or rubs. Normal PMI, no JVD. No pulse deficits. Respiratory: Lungs have equal breath sounds bilaterally, clear to auscultation and percussion. No rales, rhonchi or wheezes noted. No increased work of breathing, no retractions or nasal flaring. Back: No spinal tenderness. No costovertebral tenderness. Full range of motion. Skin: Warm, dry with normal turgor. Normal color with no rashes, no lesions, and no evidence of cellulitis. MS/ Extremity: Pulses equal, no cyanosis. Neurovascular intact. Full, normal range of motion. Neuro: Awake and alert, GCS 15, oriented to person, place, time, and situation. Cranial nerves II-XII grossly intact. Motor strength 5/5 in all extremities. Sensory grossly intact. Cerebellar exam normal. Normal gait. Psych: Awake, alert, with orientation to person, place and time. Behavior, mood, and affect are within normal limits. 02:38 Abdomen/GI: Inspection: obese scar(s), are noted in the suprapubic area, Bowel sounds: mh7 normal, in all quadrants, Palpation: mild abdominal tenderness, in the suprapubic area, mass, is not appreciated, rebound tenderness, is not appreciated, voluntary guarding, is not appreciated, involuntary guarding, is not appreciated, no appreciated organomegaly, Rectal exam: the exam is deferred, because of patient request, Indicators: McBurney's point is not tender, Jackson's sign is negative, Rovsing's sign is negative, Obturator sign is negative, Psoas sign is negative, Liver: no appreciated palpable abnormalities, Hernia: not appreciated. 02:38 : CVA tenderness, is absent, Pelvic Exam: The exam is refused by the patient/guardian. The risks and consequences are understood by the patient. Vital Signs: 01:39 BP 121 / 69; Pulse 80; Resp 16; Temp 98.2; Pulse Ox 100% on R/A; Weight 108.86 kg; iw Height 5 ft. 8 in. (172.72 cm); 02:49 BP 112 / 69; Pulse 71; Resp 18 S; Pulse Ox 100% on R/A; ad5 03:53 BP 117 / 75; Pulse 68; Resp 17 S; Pulse Ox 100% on R/A; ad5 04:29 BP 115 / 74; Pulse 66; Resp 16 S; Pulse Ox 100% on R/A; ad5 01:39 Body Mass Index 36.49 (108.86 kg, 172.72 cm) iw MDM: 04:05 Differential diagnosis: appendicitis, bowel obstruction, diverticulitis, non-specific mh7 abd pain, Pyelonephritis, Ureterolithiasis, urinary tract infection, postoperative pain, post operative bleeding. Data reviewed: vital signs, nurses notes, old medical records, lab test result(s), CBC, electrolytes, urinalysis, UPT: negative radiologic studies, CT scan. Data interpreted: Pulse oximetry: on room air is 100 %. Interpretation: normal. 04:07 Counseling: I had a detailed discussion with the patient and/or guardian regarding: the mh7 historical points, exam findings, and any diagnostic results supporting the discharge/admit diagnosis, lab results, radiology results, the need for outpatient follow up, to return to the emergency department if symptoms worsen or persist or if there are any questions or concerns that arise at home. Response to treatment: the patient's symptoms have markedly improved after treatment. 04:09 Patient medically screened. [facility] 02/04 02:17 Order name: Abo/rh Typing; Complete Time: 04:02 [facility] 02/04 02:17 Order name: Basic Metabolic Panel; Complete Time: 03:18 [facility] 02/04 02:17 Order name: CBC with Diff; Complete Time: 02:51 [facility] 02/04 02:47 Order name: Urine Dipstick-Ancillary; Complete Time: 02:51 [facility] 02/04 02:47 Order name: Urine --Ancillary (enter results); Complete Time: 03:18 tt3 02/04 02:53 Order name: CT Abd/Pelvis - IV Contrast Only [facility] 02/04 02:17 Order name: Urine Test (obtain specimen); Complete Time: 02:48 [facility] 02/04 02:17 Order name: IV Saline Lock; Complete Time: 02:47 [facility] 02/04 02:17 Order name: Labs collected and sent; Complete Time: 02:47 [facility] 02/04 02:17 Order name: NPO; Complete Time: 02:19 [facility] 02/04 02:17 Order name: Urine Dipstick-Ancillary (obtain specimen); Complete Time: 03:17 [facility] 02/04 02:17 Order name: Urine Dipstick-Ancillary (obtain specimen); Complete Time: 02:47 7 Administered Medications: No medications were administered Disposition: 02/04/21 04:09 Discharged to Home. Impression: Abdominal and pelvic pain - post operative, Abnormal uterine and vaginal bleeding, unspecified, Anemia. - Condition is Stable. - Discharge Instructions: Anemia, Nonspecific, Pelvic Pain, Female, [id number], Abdominal Pain, Adult, [id number]-[id number], Abnormal Uterine Bleeding, [id number]. - Medication Reconciliation Form, Thank You Letter, Antibiotic Education, Prescription Opioid Use form. - Follow up: Private Physician; When: 1 - 2 days; Reason: Worsening of condition, Recheck today's complaints, Continuance of care, Re-evaluation by your physician. - Problem is an ongoing problem. - Symptoms have improved. Signatures: Dispatcher [employer] EDMS Richard, NYASIA Gordon RN, Maurice, MD MD mh7 Shahid Gonzalez ad5 Corrections: (The following items were deleted from the chart) 04:30 04:09 02/04/2021 04:09 Discharged to Home. Impression: Abdominal and pelvic pain - post ad5 operative; Abnormal uterine and vaginal bleeding, unspecified; Anemia. Condition is Stable. Forms are Medication Reconciliation Form, Thank You Letter, Antibiotic Education, Prescription Opioid Use. Follow up: Private Physician; When: 1 - 2 days; Reason: Worsening of condition, Recheck today's complaints, Continuance of care, Re-evaluation by your physician. Problem is an ongoing problem. Symptoms have improved. mh7
[2021-02-04 04:36] VITALS: TEMP 98.2; O2SAT 100
[2021-02-04 04:40] VITALS: BP 115/74
--- NOTE | 2021-02-04 12:58 | RAD REPORT ---
EXAM DESCRIPTION: CT - Abdomen Pelvis W Contrast - 02/04/2021 6:17 am COMPARISON: CT abdomen pelvis January 24, 2021 CLINICAL HISTORY: [facility] post c section pain;Abd pain TECHNIQUE: CT of the abdomen and pelvis was acquired with IV contrast material. Coronal and sagitt al reconstructions were obtained. Automated exposure control was utilized on this examination as a dose lowering technique. FINDINGS: Lung bases: Clear. Liver: Normal. Gallbladder and biliary: Normal gallbladder. Unremarkable biliary tree. Pancreas: Normal. Spleen: Normal. Adrenal glands: Normal adrenal glands. Kidneys: Normal kidneys Stomach and Small Bowel: The stomach and small bowel are normal. Urinary bladder: Normal. Uterus and Adnexa: Retroverted uterus with endometrium measuring 2.1 cm. A scar is noted. Colon and Appendix: The colon is unremarkable. No evidence of appendicitis. Retroperitoneum and lymph nodes: Mesenteric and retroperitoneal lymph nodes are increased in number b ut not in size and are likely reactive. Vascular: Normal. Peritoneal cavity: Trace pelvic fluid is noted. No significant intraperitoneal free air. Musculoskeletal and soft tissues: Soft tissues are unremarkable. No aggressive bone lesions. No com pression fracture. IMPRESSION: Surgical changes of . Mild persistent endometrial thickening is present. This c ould be further evaluated with ultrasound if clinically indicated. Otherwise, expected postoperative findings are present. Electronically signed by: Abhi Edwards MD 02/04/2021 3:56 AM CDT Due to temporary technical issues with the PACS/Fluency reporting system, reports are being signed by the in house radiologists without review as a courtesy to insure prompt reporting. The interpreting radiologist is fully responsible for the content of the report.
== END 2021-02-04 04:30 | disposition home or self-care (01) ==
LOC: ER 01:16
DX: G89.18 Other acute postprocedural pain (principal); N93.9 Abnormal uterine and vaginal bleeding, unspecified; D64.9 Anemia, unspecified; F31.9 Bipolar disorder, unspecified
CPT/HCPCS: 85025; 80048; 36415; 86900; 81025; 86901; 81003; 74177; 99284; Q9967

== ENCOUNTER 2024-01-20 08:08 | Day surgery (SDC) | payer OTHER ==
[2024-01-17 13:35] LABS: Absolute Eosinophils 0.2 K/uL (0-0.5); Absolute Lymphocytes (CBC) 1.9 K/uL (0.7-4.9); Absolute Monocytes 0.4 K/uL (0.1-1.3); Absolute Neutrophil 4.6 K/uL (1.8-8.0); Basophils % 0.4 % (0-1.3); Eosinophils % 2.2 % (0-4.4); Hemoglobin 12.1 g/dL (12.0-15.0); Lymphocytes % 26.9 % (15.3-44.8); MCH 28.8 pg (27.0-35.0); MCHC 31.9 g/dL (32.0-36.0); MCV 90.4 fL (80-100); MPV 8.7 fL (7.6-11.3); Monocytes % 5.4 % (3.3-12.3); Neutrophils % 65.1 % (41.7-73.7); Platelets 238 thou/uL (152-406); Red Cell Distribution Width 14.7 % (12.1-15.2)
[2024-01-17 13:53] LABS: Albumin 3.6 g/dL (3.4-5.0); Albumin/Globulin Ratio 0.9 (1.1-1.8); Anion Gap 6.8 mEq/L (5.0-15.0); Bilirubin Direct 0.3 mg/dL (0-0.2); Bilirubin Indirect, Calculated 0.5 mg/dL (0.2-0.8); Bilirubin Total 0.8 mg/dL (0.2-1.0); Globulin 3.9 g/dL (2.3-3.5); Potassium 3.8 mEq/L (3.5-5.1); Protein, Total 7.5 g/dL (6.4-8.2)
--- NOTE | 2024-01-17 14:08 | RAD REPORT ---
EXAM DESCRIPTION: Karen Masters (2 Views)01/17/2024 1:25 pm CLINICAL HISTORY: Preop for gallbladder surgery COMPARISON: 2020 FINDINGS: The lungs appear clear of acute infiltrate. The heart is normal size IMPRESSION: No acute abnormalities displayed
[2024-01-20] MEDS ORDERED: propofoL 200 MG/20 ML VIAL IV ONE (08:28)
[2024-01-20] MEDS ORDERED: ROCURONIUM 50 MG/5 ML VIAL IV ONE (08:29)
[2024-01-20] MEDS ORDERED: LIDOCAINE 2% MPF 5 ML VIAL ONE (08:29)
[2024-01-20] MEDS ORDERED: FENTANYL CITR 100 MCG/2 ML ONE ×3 (08:29→10:43)
[2024-01-20] MEDS ORDERED: MIDAZOLAM HCL 2 MG/2 ML INJ ONE (08:30)
[2024-01-20] MEDS ORDERED: FAMOTIDINE 20 MG/2 ML VIAL IV ONE (08:38)
[2024-01-20] MEDS ORDERED: SUGAMMADEX SODIUM 200 MG/2 ML VIAL IV ONE (08:38)
[2024-01-20] MEDS ORDERED: SUCCINYLCHOLINE 20 MG/ML (10 ML) IV ONE (08:38)
[2024-01-20] MEDS: NA CHLORIDE 0.9% 1,000 ML ONE (09:09)
[2024-01-20] MEDS: CEFOXITIN SODIUM 1 GM/VIAL ONE (10:12)
[2024-01-20] MEDS ORDERED: NS 0.9% VIAL 10 ML ONE (10:17)
[2024-01-20] MEDS ORDERED: dexAMETHasone 4 MG/ML VIAL ONE (10:23)
[2024-01-20] MEDS ORDERED: ONDANSETRON 4 MG/2 ML VIAL ONE (10:23)
[2024-01-20] MEDS ORDERED: KETOROLAC 30 MG/ML INJ ONE (10:33)
[2024-01-20] MEDS ORDERED: GLYCOPYRROLATE 0.2 MG/ML SYR ONE (10:52)
[2024-01-20] MEDS ORDERED: NEOSTIGMINE 1 MG/ML -10 ML VIAL ONE (10:52)
--- NOTE | 2024-01-20 11:07 | P.BOP ---
Preoperative diagnosis: acute cholecystitis, sympt cholelithiasis, RUQ abd pain Postoperative diagnosis: same Primary procedure: Laparoscopic cholecystectomy Estimated blood loss: <10cc Specimen: gb Findings: as above Anesthesia: General Complications: None Transferred to: Recovery Room Condition: Good
[2024-01-20] MEDS: HYDROMORPHONE HCL 1 MG/ML INJ ONE (11:21)
[2024-01-20] MEDS: ONDANSETRON 4 MG/2 ML VIAL ONE (11:24)
[2024-01-20 14:30] VITALS: BP 135/80; TEMP 98.7; O2SAT 100
--- NOTE | 2024-01-21 00:45 | OP ---
Date of Procedure: 01/20/2024 Surgeon: Lionel Altamirano MD Preoperative Diagnosis: Acute cholecystitis, symptomatic cholelithiasis, right upper quadrant abdomi nal pain. Postoperative Diagnosis: Acute cholecystitis, symptomatic cholelithiasis, right upper quadrant abdom inal pain. Procedure: Laparoscopic cholecystectomy. Estimated Blood Loss: Less than 10 cc. Specimen: Gallbladder. Anesthesia: General plus local. Complications: None. Indications: This is a case of a female, who comes to us with above diagnoses. Fully explained the benefits, alternatives, and risks of laparoscopic possible open cholecystectomy, which include, but n ot limited to infection, bleeding, damage to adjacent structures, anesthesia complication, choledocho lithiasis, bile leak, pancreatitis, PA and even . She also understands this may not relieve sym ptoms. She might need more than one surgical intervention. She understood, signed the consent. Description Of Procedure: The patient was brought to the operating room, placed in supine position. Anesthesia was given without complication. Abdominal area was prepped and draped in a sterile fashi on. Lidocaine 1% plain was injected for local anesthetic, followed by sharp incision of the skin in the infraumbilical region. Incision was carried down to fascia, which was opened under direct vision . Peritoneum was encountered, opened under direct vision. Vicryl #1 placed inside the fascia. Lam on trocar was carefully introduced. Pneumoperitoneum was obtained. I placed 3 more trocars, 5 mm ea ch one of them, 1 in the epigastric area, 2 in the right upper quadrant using same technique which co nsisted of local anesthetic, sharp incision of the skin, introduction of the trocars under direct vis ion. A grasper was placed in the fundus of the gallbladder, another grasper in the infundibulum. We cannot retract the gallbladder properly because there is too many adhesions of omentum to the liver holding the liver down. So to do it safely, I used a LigaSure, and the LigaSure allowed me to take c are of those adhesions and then we can retract the gallbladder in the inferolateral fashion exposing the triangle of Calot, obtaining critical view. The cystic duct and cystic artery were clearly isola tye freed circumferentially and a connection between those and the gallbladder were clearly identifie d. I proceeded to ligate those by using at least 3 clips proximal, 1 clip distal, ligation in middle . Same was done with the cystic artery. No bile leak. No bleeding. The gallbladder was removed fr om liver using Bovie cauterizer and removed from abdominal cavity using EndoCatch through the umbilic al incision. The area was inspected once again. No bile leak. No bleeding. The gallbladder was re moved from liver already. At that moment, I proceeded to remove the trocars under direct vision. Be fore that, we checked the area of the adhesions removal. There was no bleeding and the clips were in tact with no bile leak. No bleeding. At that moment, I proceeded to remove the trocars under direct vision, deflated pneumoperitoneum, closed the fascia with #1 Vicryl irrigated subcutaneous tissue, c losed with 3-0 chromic and skin in a subcuticular fashion with 3-0 chromic and Steri-Strips on top. Sponge count and instrument counts correct. The patient tolerated the procedure well. The patient w as sent to recovery in stable condition. Disposition: Home. Condition: Stable. Activity: As tolerated. No heavy lifting. Follow up in my office in 1 week, call for appointment [phone]. Keep area dry for 48 hours, then may shower. Keep Steri-Strips intact. DEE/REBECCA Voice ID: [id number] Report ID: [id number]
== END 2024-01-20 13:00 | disposition home or self-care (01) ==
LOC: OR 08:08
PROVIDERS: ATTEND Surgery
PROC: 0FT44ZZ Resection of Gallbladder, Percutaneous Endoscopic Approach (ICD-10-PCS; principal; 2024-01-20 09:30)
DX: K80.10 Calculus of gallbladder with chronic cholecystitis without obstruction (principal); F32.A Depression, unspecified; F41.9 Anxiety disorder, unspecified; F90.9 Attention-deficit hyperactivity disorder, unspecified type; K21.9 Gastro-esophageal reflux disease without esophagitis
CPT/HCPCS: 85025; 80048; 36415; 81025; 82947 ×2; 80076; 88304; 83690; 71046; 47562; A4216; J2704; J1100; J2710; J2001; J2250; J3010 ×3; J1170; J0694; J2405 ×2; J7030